=== PATIENT | male | born 1980 | race Caucasian/White ===

== ENCOUNTER 2019-11-13 09:54 | Inpatient (IN) ==
[2019-11-13] MEDS ORDERED: 0.9 % SODIUM CHLORIDE 1,000 ML IV ONE ×3 (10:06→12:00)
[2019-11-13] MEDS ORDERED: HYDROmorphone 1 MG/ML SYRINGE IV ONE (10:12)
[2019-11-13] MEDS ORDERED: ONDANSETRON 4 MG/2 ML VIAL IV ONE ×2 (10:12→13:23)
[2019-11-13 10:36] LABS: POC Blood Urea Nitrogen 37 mg/dl (6-20); POC CO2 21 mmol/L (22-30); POC Calcium, Ionized 1.09 mmol/L (1.16-1.32); POC Chloride 99 mmol/L (96-108); POC Creatinine 2.4 mg/dl (0.7-1.2); POC Glucose, Random 300 mg/dL (70-105); POC Sodium 133 mmol/L (133-145)
[2019-11-13 10:59] LABS: Basophils % (Auto) 0.4 % (0.0-2.0); Eosinophils # (Auto) 0.03 K/mcL (0.00-0.70); Eosinophils % (Auto) 0.1 % (0.0-7.0); Hematocrit 34.7 % (40.1-51.0); Hemoglobin 11.7 g/dL (13.7-17.5); Lymphocytes # (Auto) 0.54 K/mcL (1.50-4.80); Lymphocytes % (Auto) 1.9 % (15.5-49.0); Mean Cell Volume 88.7 fL (80.0-100.0); Mean Corpuscular HGB Conc 33.7 g/dL (31.0-36.0); Mean Platelet Volume 10.6 fL (7.4-10.4); Monocytes # (Auto) 1.01 K/mcL (0.10-0.90); Monocytes % (Auto) 3.6 % (1.0-12.0); Platelet Count 205 K/mcL (140-440); RBC 3.91 M/mcL (4.63-6.08); Red Cell Distribution Width 14.1 % (11.5-14.5); WBC 28.4 K/mcL (4.50-11.00)
[2019-11-13] MEDS ORDERED: PIPERACILLIN SODIUM/TAZOBACTAM 3.375 GM in DEXTROSE 5% IN WATER 50 ML IV ONE (11:00)
[2019-11-13] MEDS ORDERED: HYDROmorphone* 2 MG/ML VIAL ONE (11:03)
--- NOTE | 2019-11-13 11:31 | Emergency Department Note ---
General Adult HPI - General Chief complaint: Abdominal Pain Stated complaint: severe abdominal pain, hypotension Time Seen by Provider: 11/13/19 10:11 Source: patient, EMS Mode of arrival: EMS Limitations: no limitations - History of Present Illness HPI Narrative: 47-year-old male arrives via ambulance with multiple complaints. Has been up all night with severe abdominal pain with nausea, vomiting, and diarrhea. States he has severe IBS and this is not unusual for him. He was really dizzy this morning and had a few syncopal episodes. His called EMS. He arrives with a blood pressure of 60s over 30s. EMS could not get a line in route. His complaint is abdominal pain and back pain both which are hard to tell if they are new because they are chronic. He also is dizzy, pale, lightheaded and diaphoretic. He is a diabetic and has not been checking his sugars. States he does not remember the last time he checked his blood sugar. EMS also reports a systolic blood pressure of 50s and 60s. He does note that he just has not felt great for at least a few days. Cannot tell me how long. He has had fever and chills the last 24 hours he feels like although he has not taken his temperature. I do notice dressings to his feet bilaterally. States he has foot wounds and he just takes care of them himself. States he has had them for a long time. He does see Dr. House once in a while due to chronic foot problems and surgery. He does not see them for him for the foot wounds. He denies any drainage, redness, or warmth from the wounds and states they have been there for quite some time and that he deals with foot wounds constantly. After speaking with his she states he just has not been feeling great for the last 10 days but cannot really explain it. States he does have the chronic foot wounds and she is unsure how long they have been there. It sounds as if the patient is fairly noncompliant at times. Does not check his blood sugars and does not really take care of himself. His primary care provider is been trying to get him to take insulin and further manage his diabetes but he does not want to and they cannot convince him so far she states. She also states she has been trying to get him to see a GI provider but he will not do it. She states is not unusual for him to be up at night multiple times with nausea, vomiting, and especially diarrhea. States that is an ongoing thing for many years. It is unclear who diagnosed him with IBS. States the only provider he really sees is Yaa Keller for primary care in [place] and once in a great while he will see Dr. House for foot problems but not for the wounds. She reports she heard a thud this morning so she ran up to check on him and he had had a syncopal episode and was on the floor. She went to call 911 and he managed to get himself up into the bed. She states he had several near syncopal episodes this morning as well and was complaining of dizziness. - Related Data Home Medications Medication Instructions Recorded Confirmed empagliflozin 25 mg tablet 25 mg PO QAM 05/28/16 03/03/18 glipizide 10 mg tablet 10 mg PO BID 05/28/16 03/03/18 hydrochlorothiazide 25 mg tablet 25 mg PO QDAY 05/28/16 03/03/18 hydrocodone 10 mg-acetaminophen 2 tab PO QID PRN tab 05/28/16 03/03/18 325 mg tablet levothyroxine 175 mcg tablet 175 mcg PO QDAY 05/28/16 03/03/18 lisinopril 20 mg tablet 20 mg PO QDAY 05/28/16 03/03/18 metformin 1,000 mg tablet 1,000 mg PO BID 05/28/16 03/03/18 pregabalin 200 mg capsule 200 mg PO BID cap 05/28/16 03/03/18 oxyCODONE [Oxycontin] 5 mg PO DAILY PRN 07/01/17 03/03/18 Previous Rx's Medication Instructions Recorded oxycodone-acetaminophen 5 mg-325 1 tab PO Q6H #10 tab 02/17/18 mg tablet Allergies Allergy/AdvReac Type Severity Reaction Status Date / Time No Known Drug Allergies Allergy Verified 11/13/19 09:59 Review of Systems All systems ED: reviewed and negative except as stated. Past Medical History - Past Medical History [facility] Narrative: Medical History (Last Reviewed 01/31/18 @ 08:27 by Lyssa Llamas RN) Encounter for long-term current use of high risk medication (Acute) Carpal tunnel syndrome (Chronic) Inflammatory arthropathy (Suspected) Back pain (Chronic) Paresthesia and pain of both upper extremities (Acute) Abnormal immunological finding in serum (Chronic) Inflammatory arthritis (Suspected) Acquired hallux varus of left foot (Chronic) Hypertension (Chronic) Polyneuropathy (Chronic) Onychomycosis (Chronic) Angioedema (Chronic) Chronic back pain (Chronic) Hypothyroidism (Chronic) Type II diabetes mellitus (Chronic) Hammertoe (Chronic) Hypocalcemia (Chronic) Abnormal liver enzymes (Chronic) Hypoalphalipoproteinemia (Chronic) Hypertriglyceridemia (Chronic) Morbid obesity (Chronic) Past Surgical History (Last Reviewed 01/31/18 @ 08:27 by Lyssa Llamas RN) History of back surgery (Acute) History of surgery (Acute) No pertinent past surgical history (Acute) S/P carpal tunnel release (Acute) Surgical history ED: Reports: orthopedic, other (foot sx) - Social History smoking status: Former smoker Alcohol use: Reports: Rarely Drug use: Reports: none Physical Exam Limitations: no limitations General appearance: obese, sleepy, other (pale, diahporetic) Head: atraumatic, normocephalic, normal inspection Eye: Present: normal appearance. Absent: conjunctival injection ENT: Present: mucous membranes moist Chest: Present: symmetric chest wall rise Respiratory: Present: normal lung sounds bilaterally. Absent: respiratory distress, rales/crackles, accessory muscle use Cardiovascular: Present: regular rate, normal heart sounds Abdominal: Present: soft, normal bowel sounds. Absent: distention, tenderness (can't reproduce abd pain with palpation), guarding, rebound, mass Extremities: Present: other (multiples scabs intact and healing to LE from knees down. Feet with dry scaley skin bilat. Left foot with stage 2 pressure ucler and open wound. mild rendess to edges, no drainage, no induarion, no edema, culture pending). Absent: pedal edema Neurological: Present: alert, oriented X3 Psychiatric: Present: normal affect, normal mood Skin: Present: cool, diaphoretic Course Course Narrative: After arrival they were finally able to get 1 IV after multiple attempts however patient accidentally pulled out IV. Multiple nurses tried multiple times we are finally able to get 2 IVs. Fluid infusing rapidly. Patient's color is slightly improving but after 3 L of fluid still has pressure over of 70s over 30s and 60s over 40s. Levophed drip started. Zosyn started. At 1130 I did speak with Dr. Ernandez the hospitalist. He would also like us to CT the chest abdomen pelvis even though the patient is no longer having abdominal pain but did have abdominal pain all night long, has a nausea vomiting and diarrhea and also has a white count of greater than 28,000. At this time anesthesia was also called to place a central line at Dr. Victoria's request. Spoke with a few times and we did allow her in [facility] to see pt. @1300 Dr. Victoria agrees to accept pt Vital Signs Temperature 98.7 F 11/13/19 09:55 Pulse Rate 112 H 11/13/19 09:55 Respiratory Rate 18 11/13/19 09:55 Blood Pressure 76/48 11/13/19 09:55 Pulse Oximetry (%) 100 11/13/19 09:55 Temperature 98.7 F 11/13/19 09:55 Pulse Rate 94 H 11/13/19 13:50 Respiratory Rate 18 11/13/19 13:50 Blood Pressure 93/45 11/13/19 13:44 Pulse Oximetry (%) 91 11/13/19 13:50 Medical Decision Making - Lab Data Lab results reviewed: Yes I reviewed the patient's lab results. Result diagrams: 11/13/19 10:33 11/13/19 10:32 Lab Results 11/13/19 11/13/19 11/13/19 Range/Units 10:32 10:32 10:32 WBC (4.50-11.00) K/mcL RBC (4.63-6.08) M/mcL Hgb (13.7-17.5) g/dL Hct (40.1-51.0) % POC Hct (41.0-55.0) % MCV (80.0-100.0) fL MCH (26.0-34.0) pg MCHC (31.0-36.0) g/dL RDW (11.5-14.5) % Plt Count (140-440) K/mcL MPV (7.4-10.4) fL Gran % (38.0-78.0) % Lymph % (Auto) (15.5-49.0) % Newton % (Auto) (1.0-12.0) % Eos % (Auto) (0.0-7.0) % Baso % (Auto) (0.0-2.0) % Gran # (1.80-8.00) K/mcL Lymph # (Auto) (1.50-4.80) K/mcL Newton # (Auto) (0.10-0.90) K/mcL Eos # (Auto) (0.00-0.70) K/mcL Baso # (Auto) (0.00-0.30) K/mcL Differential Comment VBG Lactic Acid 3.9 H (0.5-2.0) mmol/L POC Sodium (133-145) mmol/L Sodium (133-145) mmol/L POC Potassium (3.3-5.1) mmol/L Potassium (3.3-5.1) mmol/L POC Chloride (96-108) mmol/L Chloride (96-108) mmol/L Carbon Dioxide (22-30) mmol/L POC Total CO2 (22-30) mmol/L Anion Gap (8-16) POC BUN (6-20) mg/dl BUN (6-20) mg/dl Creatinine (0.7-1.2) mg/dl POC Creatinine (0.7-1.2) mg/dl GFR Calculation Glucose (70-105) mg/dL POC Glucose (70-105) mg/dL Calcium (8.6-10.4) mg/dl POC WB Ioniz Calcium (1.16-1.32) mmol/L Total Bilirubin (0.0-1.0) mg/dL AST (0-37) U/l ALT (0-40) U/l Alkaline Phosphatase (39-117) U/L Troponin T < 0.01 (0-0.03) ng/ml C-Reactive Protein 7.2 H (0.0-0.8) mg/dl Total Protein (5.9-8.4) gm/dL Albumin (3.2-5.2) gm/dL Globulin (2.2-3.7) gm/dL Albumin/Globulin Ratio (1.0-2.3) Lipase (7-60) U/L Beta-Hydroxybutyrate 0.25 (< 0.27) mmol/L 11/13/19 11/13/19 11/13/19 Range/Units 10:32 10:33 10:33 WBC 28.4 H (4.50-11.00) K/mcL RBC 3.91 L (4.63-6.08) M/mcL Hgb 11.7 L (13.7-17.5) g/dL Hct 34.7 L (40.1-51.0) % POC Hct 35.0 L (41.0-55.0) % MCV 88.7 (80.0-100.0) fL MCH 29.9 (26.0-34.0) pg MCHC 33.7 (31.0-36.0) g/dL RDW 14.1 (11.5-14.5) % Plt Count 205 (140-440) K/mcL MPV 10.6 H (7.4-10.4) fL Gran % 94.0 H (38.0-78.0) % Lymph % (Auto) 1.9 L (15.5-49.0) % Newton % (Auto) 3.6 (1.0-12.0) % Eos % (Auto) 0.1 (0.0-7.0) % Baso % (Auto) 0.4 (0.0-2.0) % Gran # 26.75 H (1.80-8.00) K/mcL Lymph # (Auto) 0.54 L (1.50-4.80) K/mcL Newton # (Auto) 1.01 H (0.10-0.90) K/mcL Eos # (Auto) 0.03 (0.00-0.70) K/mcL Baso # (Auto) 0.10 (0.00-0.30) K/mcL Differential Comment VBG Lactic Acid (0.5-2.0) mmol/L POC Sodium 133 (133-145) mmol/L Sodium 134 (133-145) mmol/L POC Potassium 4.0 (3.3-5.1) mmol/L Potassium 4.1 (3.3-5.1) mmol/L POC Chloride 99 (96-108) mmol/L Chloride 95 L (96-108) mmol/L Carbon Dioxide 17 L (22-30) mmol/L POC Total CO2 21 L (22-30) mmol/L Anion Gap 22.0 H (8-16) POC BUN 37 H (6-20) mg/dl BUN 41 H (6-20) mg/dl Creatinine 2.1 H (0.7-1.2) mg/dl POC Creatinine 2.4 H (0.7-1.2) mg/dl GFR Calculation 38 Glucose 305 H (70-105) mg/dL POC Glucose 300 H (70-105) mg/dL Calcium 8.9 (8.6-10.4) mg/dl POC WB Ioniz Calcium 1.09 L (1.16-1.32) mmol/L Total Bilirubin 0.6 (0.0-1.0) mg/dL AST 20 (0-37) U/l ALT 38 (0-40) U/l Alkaline Phosphatase 36 L (39-117) U/L Troponin T (0-0.03) ng/ml C-Reactive Protein (0.0-0.8) mg/dl Total Protein 6.5 (5.9-8.4) gm/dL Albumin 3.2 (3.2-5.2) gm/dL Globulin 3.3 (2.2-3.7) gm/dL Albumin/Globulin Ratio 1.0 (1.0-2.3) Lipase 44 (7-60) U/L Beta-Hydroxybutyrate (< 0.27) mmol/L - Radiology Data Radiology results reviewed: Yes I reviewed the patient's radiology results. Disposition Pt seen by BUSHWALKING GUIDE/PA only: Yes Clinical Impression: Sepsis, Abdominal pain, Vomiting and diarrhea, Wound of foot, Uncontrolled diabetes mellitus Disposition: Xfer Acute Care Hospital Condition: Fair Referrals: Yaa Keller ARNP [Primary Care Provider] -
[2019-11-13] MEDS ORDERED: 0.9 % SODIUM CHLORIDE 250 ML IV SCH (11:45)
[2019-11-13] MEDS ORDERED: NOREPINEPHRINE BITARTRATE 8 MG in 0.9 % SODIUM CHLORIDE 242 ML IV SCH (11:45)
[2019-11-13] MEDS: HYDROmorphone* 2 MG/ML VIAL IV PRN ×2 (11:49→13:30)
[2019-11-13] MEDS ORDERED: VANCOMYCIN PER PHARMACY IV ONE (11:58)
[2019-11-13 12:11] LABS: Beta Hydroxybutyrate 0.25 mmol/L (< 0.27); C-Reactive Protein 7.2 mg/dl (0.0-0.8)
[2019-11-13] MEDS ORDERED: fentaNYL 100 MCG/2 ML VIAL IV ONE (12:11)
[2019-11-13] MEDS ORDERED: MIDAZOLAM 2 MG/2 ML VIAL IV ONE (12:11)
[2019-11-13] MEDS ORDERED: VANCOMYCIN 1,500 MG in 0.9 % SODIUM CHLORIDE 500 ML IV ONE (12:15)
--- NOTE | 2019-11-13 12:55 | Cat Scan Report ---
CLINICAL INFORMATION: Sepsis and abdominal pain COMPARISON: Abdomen and pelvic CT 01/16/2014 TECHNIQUE: Enteric contrast was utilized. 0.625 mm helical slices were obtained from the lung apices through the subtrochanteric regions of the femurs. Following reconstruction, 2.5 mm sagittal, coronal and axial reformatted images were processed and reviewed at multiple windows and levels. 7 mm MIP reconstructions were obtained through the lungs to optimize nodule detection.The exam was performed using radiation dose optimization techniques including, but not limited to, automated exposure control, adjustment of the mA and/or kV according to patient size and use of iterative reconstruction technique. FINDINGS: The lung windows show subsegmental atelectasis in both posterior lower lobes. There are no infiltrates or effusions. The mediastinal windows show the heart is normal in size without significant plaque in the coronary arteries. The noncontrast thoracic aorta and pulmonary arteries are normal in diameter. There are multiple mildly enlarged mediastinal lymph nodes ranging up to 17 mm in the right paratracheal region. The thyroid is unremarkable. All images show moderate hepatomegaly with vertical dimension of the right hepatic lobe 27 cm. This is unchanged 2014. No focal hepatic lesions. There are multiple small stones layering dependently within the gallbladder - new from the prior exam. Gallbladder is moderately distended, but there is no evidence of wall thickening or pericholecystic fluid. The hepatic and common bile ducts are normal caliber. Both kidneys, adrenal glands, pancreas and aorta are normal. The spleen is unremarkable. There are multiple mildly enlarged mesenteric and retroperitoneal lymph nodes in the upper abdomen which are were actually unchanged from the 2014 exam and therefore should be benign the stomach, and small bowel are normal. There are multiple sigmoid diverticuli the remaining large bowel is normal.. Images of the pelvis show urinary bladder prostate and seminal vesicles are normal. Bone windows show no osseous abnormality. IMPRESSION: 1. Multiple mildly enlarged mediastinal lymph nodes. They're likely benign reactive lymph nodes related to subclinical infection. Lymphoma or metastatic disease would be highly unlikely unless there is clinical support. Consider chest CT follow-up in 8-12 weeks. 2. Mildly enlarged mesenteric and retroperitoneal lymph nodes in the upper abdomen are stable from 2014. A should be benign. 3. Moderate hepatomegaly - stable. 4. Cholelithiasis, but no CT evidence of cholecystitis. Interpreted and Authenticated by: Js Jasso 11/13/19
[2019-11-13] MEDS ORDERED: 0.9 % SODIUM CHLORIDE 10 ML SYRINGE IV PRN (12:57)
--- NOTE | 2019-11-13 13:31 | XRay Report ---
CLINICAL INFORMATION: Central Line Placement COMPARISON: 11/05/2019 FINDINGS: Right IJ central line tip overlies the SVC - azygos junction. The heart is normal in size. Slight mediastinal widening represents known mediastinal adenopathy on CT. There is minor bibasilar atelectasis. No effusion. IMPRESSION: Right IJ line overlying the SVC azygos junction.. Mild mediastinal widening reflecting mediastinal adenopathy. Interpreted and Authenticated by: Js Jasso 11/13/19
--- NOTE | 2019-11-13 13:34 | Internal Med History&Physical ---
Medical - H&P: HPI Patient information: Note initiated : 11/13/19 at 1:28 pm Service Date, if different from initiated Date: [] Patient: Ahmet Zelaya 39 y/o M admitted on for severe abdominal pain, hypotension. Chief Complaint: [] Chief complaint: Weakness abd pain, dirrhea History of present illness: Mr. Zelaya is a 39 year old M with history of IBS/diabetes and morbid obesity who was in his baseline state of health until roughly 7 days prior to presentation started experiencing URI symptoms with stuffy nose and sinus drainage. His 4-year-old son had a recent episode of sore throat his only sick contact he could remember. He was started on Z-Sandeep along with Sudafed however over the next 4 days he started experiencing increasing diarrhea weakness along with yellow-green postnasal drip/sputum. He however denied shaking chills but endorses to low-grade fever. He normally experiences intermittent diarrhea 6-8 episodes a day from his prior IBS and is scheduled to see GI however the frequency of diarrhea along with abdominal pain worsened over the last 48 hours with increasing frequency of stooling. Symptoms are associated loss of appetite/severe weakness. This morning after he got up he became extremely dizzy and was a barely able to move around function. With i ncreasing concerns patient was brought into the ER along with his . Initial work-up was consistent with septic shock with blood pressure mid 40, patient was promptly started on crystalloids, blood cultures were drawn and vasopressors initiated. Patient was started on vancomycin and Zosyn. CT abdomen chest pelvis no evidence of acute process except for cholelithiasis. UA pending. Labs remarkable for white count over 28,000 with bandemia/elevated lactate/acute renal failure. Central line was secured in the ER Hospitalist service was consulted for admission in light of septic shock. On evaluation patient is very anxious and lethargic but was able to endorse history as above. He denies IV drug use. 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 Review of systems A 10 point review system was performed and is negative except for ones cussed above Medical - H&P: PMH Medical history: Encounter for long-term current use of high risk medication (Acute) Carpal tunnel syndrome (Chronic) Inflammatory arthropathy (Suspected) Back pain (Chronic) Paresthesia and pain of both upper extremities (Acute) Abnormal immunological finding in serum (Chronic) Inflammatory arthritis (Suspected) Acquired hallux varus of left foot (Chronic) Hypertension (Chronic) Polyneuropathy (Chronic) Onychomycosis (Chronic) Angioedema (Chronic) Chronic back pain (Chronic) Hypothyroidism (Chronic) Type II diabetes mellitus (Chronic) Hammertoe (Chronic) chronic callus and diabetic ulcer under the second left metatarsal head due to hammertoe and bunion deformity Hypocalcemia (Chronic) Abnormal liver enzymes (Chronic) Hypoalphalipoproteinemia (Chronic) Hypertriglyceridemia (Chronic) Morbid obesity (Chronic) Surgical History History of back surgery (Acute) History of surgery (Acute) right foot No pertinent past surgical history (Acute) S/P carpal tunnel release (Acute) left hand Family History Other Cancer Diabetes Hypertension No pertinent family history Social History smoking status: Former smoker alcohol intake frequency: does not drink substance use type: 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 - H&P: Meds Home Medications Medication Instructions Recorded Confirmed Type empagliflozin 25 mg tablet 25 mg PO QAM 05/28/16 03/03/18 History glipizide 10 mg tablet 10 mg PO BID 05/28/16 03/03/18 History hydrochlorothiazide 25 mg tablet 25 mg PO QDAY 05/28/16 03/03/18 History hydrocodone 10 mg-acetaminophen 2 tab PO QID PRN tab 05/28/16 03/03/18 History 325 mg tablet levothyroxine 175 mcg tablet 175 mcg PO QDAY 05/28/16 03/03/18 History lisinopril 20 mg tablet 20 mg PO QDAY 05/28/16 03/03/18 History metformin 1,000 mg tablet 1,000 mg PO BID 05/28/16 03/03/18 History pregabalin 200 mg capsule 200 mg PO BID cap 05/28/16 03/03/18 History oxyCODONE [Oxycontin] 5 mg PO DAILY PRN 07/01/17 03/03/18 History oxycodone-acetaminophen 5 mg-325 1 tab PO Q6H #10 tab 02/17/18 03/03/18 Rx mg tablet Allergies Allergy/AdvReac Type Severity Reaction Status Date / Time No Known Drug Allergies Allergy Verified 11/13/19 09:59 Medical - H&P: Exam - Constitutional Vitals: Temp Pulse Resp BP Pulse Ox 98.7 F 99 H 12 64/55 94 11/13/19 09:55 11/13/19 12:23 11/13/19 12:24 11/13/19 12:24 11/13/19 12:23 General appearance: morbidly obese Exam: Lethargic but able to respond to commands Head normocephalic Oral cavity dry No ear nose discharge Neck no lymphadenopathy S1-S2 tachycardia Diminished breath sounds bases, nonlabored breathing Abdomen pendulous, increased bowel sounds Lower extremity no cyanosis clubbing Areas of excoriation with minimal surrounding erythema Skin no suspicious lesion Psych anxious lethargic but cooperative Neuro nonfocal Medical - H&P: Reslt - Labs CBC & Chem 7: 11/13/19 10:33 11/13/19 10:32 Labs: Short CBC 11/13/19 Range/Units 10:33 WBC 28.4 H (4.50-11.00) K/mcL Hgb 11.7 L (13.7-17.5) g/dL Hct 34.7 L (40.1-51.0) % Plt Count 205 (140-440) K/mcL Cardiac Enzymes 11/13/19 Range/Units 10:32 Troponin T < 0.01 (0-0.03) ng/ml Medical - H&P: A/P (1) Septic shock Current visit: Yes Status: Acute * Septic shock of unclear etiology-elevated lactate/white count 28,000 with bandemia systolics mid 40. On aggressive crystalloid/vasopressors. [place] 2 score 20 indicating high mortality. Admit to ICU for vasopressors/sepsis management per guidelines. Multiple endorgan dysfunction noted. Continue aggressive source evaluation. Check C. difficile * Acute renal failure secondary to sepsis endorgan dysfunction. Baseline creatinine 1 current creatinine 2.5 * Acute change in mental status secondary to sepsis endorgan dysfunction. Clinically improving following crystalloids and improvement in blood pressure * DM type II-prandial insulin/CCD * Morbid obesity with BMI over 39-continue directed therapy/dietitian consult * History of hypertension hold antihypertensives until septic shock resolves * Degenerative joint disease-continue home dose opioids * Neuropathy on gabapentin * Hypothyroidism on thyroxine at home * Full code * Prophylax Heparin Plan * ICU admission * Septic shock management per guidelines with vasopressors/SVO 2/urine output monitoring/trend venous lactate * Monitor renal function * C. difficile * Ultrasound gallbladder * PT OT nutrition support Critical care time spent in excess of 35 minutes in excess of time spent on history and physical
[2019-11-13 13:46] LABS: ALT/SGPT 38 U/l (0-40); AST/SGOT 20 U/l (0-37); Albumin 3.2 gm/dL (3.2-5.2); Alkaline Phosphatase 36 U/L (39-117); Bilirubin,Total 0.6 mg/dL (0.0-1.0); Blood Urea Nitrogen 41 mg/dl (6-20); Calcium 8.9 mg/dl (8.6-10.4); Carbon Dioxide 17 mmol/L (22-30); Chloride 95 mmol/L (96-108); Globulin 3.3 gm/dL (2.2-3.7); Glomerular Filtration Rate 38; Glucose 305 mg/dL (70-105)
[2019-11-13] MEDS: NOREPINEPHRINE BITARTRATE 8 MG in 0.9 % SODIUM CHLORIDE 242 ML IV SCH ×2 (14:45→16:01)
[2019-11-13] MEDS ORDERED: MAGNESIUM SULFATE 2 GM/50 ML BAG IV PRN (14:56)
[2019-11-13] MEDS ORDERED: POTASSIUM CHLORIDE 20 MEQ PACKET PO PRN (14:56)
[2019-11-13] MEDS ORDERED: ACETAMINOPHEN 325 MG TABLET PO PRN (14:56)
[2019-11-13] MEDS ORDERED: DEXTROSE 31 GM ORAL.SUSP PO PRN (14:56)
[2019-11-13] MEDS ORDERED: DEXTROSE 50% 50 ML VIAL IV PRN (14:56)
[2019-11-13] MEDS ORDERED: ONDANSETRON 4 MG ODT TABLET SL PRN (14:56)
[2019-11-13] MEDS ORDERED: VANCOMYCIN PER PHARMACY IV SCH (14:56)
[2019-11-13] MEDS ORDERED: BISACODYL 10 MG SUPP.RECT PR PRN (14:56)
[2019-11-13] MEDS ORDERED: POTASSIUM CHLORIDE 40 MEQ in DEXTROSE 5% IN WATER 500 ML IV PRN (14:56)
[2019-11-13] MEDS: 0.9 % SODIUM CHLORIDE 1,000 ML IV SCH (15:43)
[2019-11-13] MEDS: 0.9 % SODIUM CHLORIDE 10 ML SYRINGE IV SCH ×2 (16:01→21:36)
--- NOTE | 2019-11-13 16:31 | Ultrasound Report ---
CLINICAL INFORMATION: Sepsis, R/o cholecystitis COMPARISON: Abdomen and pelvic CT 11/05/2019 FINDINGS: The liver is moderately enlarged with inhomogeneous echotexture. No focal hepatic lesions. There are multiple tiny stones layering dependently within the gallbladder which is moderately distended. Gallbladder wall is normal thickness and there is no focal tenderness's report cholecystitis. Common bile duct was not visualized. Pancreas unremarkable. No free fluid IMPRESSION: Cholelithiasis but no evidence of cholecystitis. Moderate hepatomegaly Interpreted and Authenticated by: Js Jasso 11/13/19
[2019-11-13] MEDS: INSULIN LISPRO 1 UNIT/0.01 ML UNIT SQ SCH ×2 (17:23→21:36)
[2019-11-13] MEDS: PIPERACILLIN SODIUM/TAZOBACTAM 3.375 GM in DEXTROSE 5% IN WATER 50 ML IV SCH (17:24)
[2019-11-13 17:29] LABS: Appearance,Urine CLEAR; Bacteria,Urine 0 /hpf (0); Bilirubin,Urine NEG (NEG); Color,Urine YELLOW; Culture Indicated,Urine NO; Glucose,Urine (UA) >=500 mg/dL (NEG); Ketones,Urine NEG (NEG); Leukocyte Esterase,Urine NEG /uL (NEG); Mucus,Urine FEW /hpf (0); Nitrate,Urine NEG (NEG); Protein,Urine 30 mg/dL (NEG); Specific Gravity,Urine 1.016 (1.000-1.035); Urine Blood NEG mg/dL (<0.03); Urine RBC < 1 /hpf (0-1); Urine Squamous Epithelial Cell < 1 /hpf (0-4); Urine WBC < 1 /hpf (0-4); Urobilinogen,Urine NEG (NEG)
[2019-11-13] MEDS: ACETAMINOPHEN 650 MG/65 ML BOTTLE IV PRN (19:50)
[2019-11-13] MEDS ORDERED: MELATONIN 3 MG TABLET PO PRN (21:00)
[2019-11-13] MEDS ORDERED: 0.9 % SODIUM CHLORIDE 10 ML SYRINGE IV SCH (21:00)
[2019-11-13] MEDS: CYANOCOBALAMIN (VITAMIN B-12) 500 MCG TABLET PO SCH (21:16)
[2019-11-13] MEDS: DOCUSATE SODIUM 100 MG CAPSULE PO SCH (21:16)
[2019-11-13] MEDS: HEPARIN 5,000 UNIT/ML VIAL SQ SCH (21:35)
[2019-11-13] MEDS: VANCOMYCIN 1,500 MG in 0.9 % SODIUM CHLORIDE 500 ML IV SCH (23:16)
[2019-11-14] MEDS: PIPERACILLIN SODIUM/TAZOBACTAM 3.375 GM in DEXTROSE 5% IN WATER 50 ML IV SCH ×5 (00:41→23:43)
[2019-11-14] MEDS: 0.9 % SODIUM CHLORIDE 1,000 ML IV SCH ×4 (00:41→23:49)
[2019-11-14] MEDS: ACETAMINOPHEN 650 MG/65 ML BOTTLE IV PRN ×2 (02:04→09:32)
[2019-11-14] MEDS: 0.9 % SODIUM CHLORIDE 10 ML SYRINGE IV SCH ×3 (06:07→20:38)
[2019-11-14] MEDS: ONDANSETRON 4 MG/2 ML VIAL IV PRN ×5 (06:08→23:43)
[2019-11-14 06:31] LABS: Hematocrit 34.3 % (40.1-51.0); Hemoglobin 11.1 g/dL (13.7-17.5); Mean Cell Volume 88.6 fL (80.0-100.0); Mean Corpuscular HGB Conc 32.4 g/dL (31.0-36.0); Mean Platelet Volume 10.4 fL (7.4-10.4); Platelet Count 188 K/mcL (140-440); RBC 3.87 M/mcL (4.63-6.08); Red Cell Distribution Width 14.4 % (11.5-14.5)
[2019-11-14 06:46] LABS: ALT/SGPT 39 U/l (0-40); AST/SGOT 23 U/l (0-37); Albumin 3.4 gm/dL (3.2-5.2); Albumin/Globulin Ratio 0.9 (1.0-2.3); Alkaline Phosphatase 56 U/L (39-117); Bilirubin,Direct 0.2 mg/dL (0.0-0.3); Bilirubin,Total 0.8 mg/dL (0.0-1.0); Blood Urea Nitrogen 16 mg/dl (6-20); Calcium 8.9 mg/dl (8.6-10.4); Carbon Dioxide 20 mmol/L (22-30); Chloride 101 mmol/L (96-108); Globulin 3.6 gm/dL (2.2-3.7); Glomerular Filtration Rate 84; Glucose 137 mg/dL (70-105); Lactate Dehydrogenase 365 U/L (94-250); Uric Acid 4.4 mg/dL (2.5-8.0)
[2019-11-14 06:49] LABS: Triglycerides 481 mg/dl (<150)
[2019-11-14 07:35] LABS: Band Neutrophils % 12 % (0-10); Lymphocytes % 4 % (15-49); Monocytes % (Manual) 4 % (1-12); Platelet Estimate NORMAL (NORMAL); RBC Morphology NORMAL (NORMAL); Segmented Neutrophils % 80 % (38-78)
[2019-11-14] MEDS: DOCUSATE SODIUM 100 MG CAPSULE PO SCH ×2 (07:55→20:37)
[2019-11-14] MEDS: INSULIN LISPRO 1 UNIT/0.01 ML UNIT SQ SCH ×4 (08:08→20:50)
[2019-11-14] MEDS: THIAMINE 100 MG TABLET PO SCH (09:33)
[2019-11-14] MEDS: CYANOCOBALAMIN (VITAMIN B-12) 500 MCG TABLET PO SCH ×3 (09:33→21:56)
[2019-11-14] MEDS: MULTIVIT,THER IRON,CA,FA & MIN 1 TABLET PO SCH (09:33)
[2019-11-14] MEDS: HEPARIN 5,000 UNIT/ML VIAL SQ SCH ×2 (09:34→20:37)
[2019-11-14] MEDS: FOLIC ACID 1 MG TABLET PO SCH (09:34)
[2019-11-14] MEDS: VANCOMYCIN 1,500 MG in 0.9 % SODIUM CHLORIDE 500 ML IV SCH ×4 (10:22→21:53)
--- NOTE | 2019-11-14 10:30 | Internal Med Progress Note ---
Medical - PN: Subj Patient information: Note initiated : 11/14/19 at 10:27 am Service Date, if different from initiated Date: [] Patient: Ahmet Zelaya 39 y/o M admitted on 11/13/19 for severe abdominal pain, hypotension. Chief Complaint: [] Interval history: Mr. Zelaya is a 39 year old M with history of IBS/diabetes and morbid obesity who was in his baseline state of health until roughly 7 days prior to pr esentation started experiencing URI symptoms with stuffy nose and sinus drainage. His 4-year-old son had a recent episode of sore throat his only sick contact he could remember. He was started on Z-Sandeep along with Sudafed however over the next 4 days he started experiencing increasing diarrhea weakness along with yellow-green postnasal drip/sputum. He however denied shaking chills but endorses to low-grade fever. He normally experiences intermittent diarrhea 6-8 episodes a day from his prior IBS and is scheduled to see GI however the frequency of diarrhea along with abdominal pain worsened over the last 48 hours with increasing frequency of stooling. Symptoms are associated loss of appetite/severe weakness. This morning after he got up he became extremely dizzy and was a barely able to move around function. With increasing concerns patient was brought into the ER along with his . Initial work-up was consistent with septic shock with blood pressure mid 40, patient was promptly started on crystalloids, blood cultures were drawn and vasopressors initiated. Patient was started on vancomycin and Zosyn. CT abdomen chest pelvis no evidence of acute process except for cholelithiasis. UA pending. Labs remarkable for white count over 28,000 with bandemia/elevated lactate/acute renal failure. Central line was secured in the ER Hospitalist service was consulted for admission in light of septic shock. On evaluation patient is very anxious and lethargic but was able to endorse history as above. He denies IV drug use. 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 No overnight events. No concerns per staff. No fever chills nausea vomiting. Improved labs and hemodynamics. Off pressors. Improving urine output. Complains of headache. Restart home medications. White count down from 28.4-19,000. 12% bands. No obvious source identified as yet. Cultures negative so far. Creatinine down to 1.1 from 2.4. LFT stable. Blood cultures gram-positive cocci. - Constitutional Vitals: Vital Signs Temp Pulse Resp BP Pulse Ox 98.6 F 112 H 21 118/64 98 11/14/19 09:01 11/14/19 08:31 11/14/19 09:04 11/14/19 09:01 11/14/19 08:31 Period Temp Pulse Resp BP Sys/Bradford Pulse Ox Last 24 Hr 97.8 F-103.3 F 87-120 12-33 44-157/21-95 88-100 Intake and Output 11/13/19 11/14/19 11/14/19 21:59 05:59 13:59 Intake Total 1080 2977 627 Output Total 1950 3925 1500 Balance -870 -948 -873 Weight 339 lb 6.4 oz Intake & Output: Intake & Output 11/13/19 11/14/19 11/14/19 21:59 05:59 13:59 Intake Total 1080 2977 627 Output Total 1950 3925 1500 Balance -870 -948 -873 Weight 339 lb 6.4 oz Intake: IV 735 1477 147 Sodium Chloride 0.9% 1,000 ml @ 897 100 mls/hr IV .Q10H [facility] Rx#: [id number] Sodium Chloride 0.9% 250 ml @ 21 20 mls/hr IV .[id number] [facility] Rx#: [id number] Levophed 8 mg In Sodium 99 30 32 Chloride 0.9% 242 ml @ 10 MCG/ MIN 18.75 mls/hr IV Q14H [facility] Rx #:[id number] Zosyn 3.375 gm In Dextrose 5% 50 50 50 in Water 50 ml @ 100 mls/hr IV Q6H [facility] Rx#:[id number] Vancomycin 1,500 mg In Sodium 500 500 Chloride 0.9% 500 ml @ 333.3 mls/hr IV Q12H [facility] Rx#: [id number] Oral 345 1500 480 Output: Urine Catheter Amount 2750 1000 Void Amount 1950 975 Stool 200 500 Other: Meal Dinner Percent of Meal Consumed 100% Feeding Ability Independent Urine Appearance Clear Clear Uretheral (Ramos) Clear Urine Color Pale Bright Yellow Bright Yellow Uretheral (Ramos) Pale Urine Odor Normal Stool Size Small Stool Color Brown Yellow Stool Consistency Liquid Loose # Bowel Movements 1 General appearance: morbidly obese, no acute distress Exam: Nonlabored breathing No anxiety Nondistended abdomen Morbidly obese Ramos draining clear urine Medical - PN: Obj Da - Labs CBC & Chem 7: 11/14/19 05:00 11/14/19 05:00 Labs: Abnormal Lab Results 11/14/19 11/14/19 11/13/19 05:00 05:00 16:35 WBC 19.0 H RBC 3.87 L Hgb 11.1 L Hct 34.3 L POC Hct MPV Gran % Lymph % (Auto) Gran # Lymph # (Auto) [place] # (Auto) Seg Neutrophils % 80 H Band Neutrophils % 12 H Lymphocytes % 4 L VBG Lactic Acid Chloride Carbon Dioxide 20 L POC Total CO2 Anion Gap 18.0 H POC BUN BUN Creatinine POC Creatinine Glucose 137 H POC Glucose POC WB Ioniz Calcium Phosphorus 2.0 L GGT 173 H Alkaline Phosphatase Lactate Dehydrogenase 365 H C-Reactive Protein Albumin/Globulin Ratio 0.9 L Triglycerides 481 H Urine Protein 30 A Urine Glucose (UA) >=500 A 11/13/19 11/13/19 11/13/19 10:33 10:33 10:32 WBC 28.4 H RBC 3.91 L Hgb 11.7 L Hct 34.7 L POC Hct 35.0 L MPV 10.6 H Gran % 94.0 H Lymph % (Auto) 1.9 L Gran # 26.75 H Lymph # (Auto) 0.54 L [place] # (Auto) 1.01 H Seg Neutrophils % Band Neutrophils % Lymphocytes % VBG Lactic Acid Chloride 95 L Carbon Dioxide 17 L POC Total CO2 21 L Anion Gap 22.0 H POC BUN 37 H BUN 41 H Creatinine 2.1 H POC Creatinine 2.4 H Glucose 305 H POC Glucose 300 H POC WB Ioniz Calcium 1.09 L Phosphorus GGT Alkaline Phosphatase 36 L Lactate Dehydrogenase C-Reactive Protein Albumin/Globulin Ratio Triglycerides Urine Protein Urine Glucose (UA) 11/13/19 11/13/19 10:32 10:32 WBC RBC Hgb Hct POC Hct MPV Gran % Lymph % (Auto) Gran # Lymph # (Auto) [place] # (Auto) Seg Neutrophils % Band Neutrophils % Lymphocytes % VBG Lactic Acid 3.9 H Chloride Carbon Dioxide POC Total CO2 Anion Gap POC BUN BUN Creatinine POC Creatinine Glucose POC Glucose POC WB Ioniz Calcium Phosphorus GGT Alkaline Phosphatase Lactate Dehydrogenase C-Reactive Protein 7.2 H Albumin/Globulin Ratio Triglycerides Urine Protein Urine Glucose (UA) Meds: Medications Acetaminophen (Tylenol) 650 mg PO Q4-6HP PRN; Protocol PRN Reason: Per Pain Protocol/Fever > 101 Bisacodyl (Dulcolax) 10 mg OR Q2-3DAYS PRN PRN Reason: Constipation Cyanocobalamin (Vitamin B-12) 1,000 mcg PO BID [facility] Stop: 11/18/19 09:01 Last Admin: 11/14/19 09:33 Dose: 1,000 mcg Documented by: Dextrose (Dextrose 50%) 0 ml IV UD PRN PRN Reason: Hypoglycemia Diagnostic Test (Pha) (Accu-Chek) 1 each FS ACHS [facility] Last Admin: 11/14/19 08:07 Dose: 1 each Documented by: Docusate Sodium (Colace) 100 mg PO BID [facility] Last Admin: 11/14/19 07:55 Dose: Not Given Documented by: Folic Acid (Folic Acid) 1 mg PO DAILY [facility] Last Admin: 11/14/19 09:34 Dose: 1 mg Documented by: Glucose (Insta-Glucose) 15 gm PO PRN PRN PRN Reason: Hypoglycemia Heparin Sodium (Porcine) (Heparin) 5,000 unit SQ Q12 [facility] Last Admin: 11/14/19 09:34 Dose: 5,000 unit Documented by: Sodium Chloride (Sodium Chloride 0.9%) 1,000 mls @ 100 mls/hr IV .Q10H [facility] Last Admin: 11/14/19 00:41 Dose: 100 mls/hr Documented by: Acetaminophen (Ofirmev) 650 mg in 65 mls @ 130 mls/hr IV Q6HP PRN; Protocol PRN Reason: Per Pain Protocol/Fever > 101 Last Admin: 11/14/19 09:32 Dose: 130 mls/hr Documented by: Potassium Chloride 40 meq/ (Dextrose) 520 mls @ 130 mls/hr IV UD PRN PRN Reason: K+ = or < 3.5 Magnesium Sulfate (Magnesium Sulfate) 2 gm in 50 mls @ 50 mls/hr IV UD PRN PRN Reason: MG = or < 1.7 Piperacillin Sod/Tazobactam (Sod 3.375 gm/ Dextrose) 50 mls @ 100 mls/hr IV Q6H [facility]; Protocol Last Infusion: 11/14/19 06:40 Dose: Infused Documented by: Norepinephrine Bitartrate 8 mg (/ Sodium Chloride) 250 mls @ 18.75 mls/hr IV Q14H [facility]; Protocol Last Titration: 11/14/19 07:11 Dose: 0 mcg/min, 0 mls/hr Documented by: Vancomycin HCl 1,500 mg/ (Sodium Chloride) 500 mls @ 333.3 mls/hr IV Q8H [facility] Last Admin: 11/14/19 10:22 Dose: 333.3 mls/hr Documented by: Insulin Human Lispro (Humalog) 0 unit SQ ACHS [facility]; Protocol Last Admin: 11/14/19 08:08 Dose: Not Given Documented by: Iron Carb/Multivit/Screen Printing Stencil Preparer/Folic Acid (Multivitamin W/Minerals) 1 tab PO DAILY [facility] Last Admin: 11/14/19 09:33 Dose: 1 tab Documented by: Melatonin (Melatonin 3mg Tablet) 3 mg PO HSP PRN PRN Reason: Insomnia Ondansetron HCl (Zofran Odt) 4 mg SL Q4-6HP PRN; Protocol PRN Reason: Nausea And Vomiting Last Admin: 11/14/19 07:21 Dose: 4 mg Documented by: Ondansetron HCl (Zofran) 4 mg IV Q4-6HP PRN; Protocol PRN Reason: Nausea And Vomiting Last Admin: 11/14/19 06:08 Dose: 4 mg Documented by: Potassium Chloride (Klor-Con) 40 meq PO DAILYP PRN PRN Reason: K+ < 3.5 Sodium Chloride (Saline Flush) 10 ml IV Q8 [facility] Last Admin: 11/14/19 06:07 Dose: 10 ml Documented by: Thiamine HCl (Vitamin B1) 100 mg PO DAILY [facility] Last Admin: 11/14/19 09:33 Dose: 100 mg Documented by: Vancomycin HCl (Vancomycin Per Pharmacy) 1 order IV UD [facility]; Protocol Medical - PN: A/P - Time Spent With Patient Total time spent is greater than 50% in coordination of care (as documented) at patient's floor/unit and/or counseling patient: Greater than 35 minutes (Critical care time) (1) Septic shock Status: Acute Assessment and plan: * Septic shock of secondary gram-positive cocci-rapid improvement noted on aggressive antibiotic coverage/vasopressors. Improved endorgan dysfunction. Negative abdominal imaging * Gram-positive bacteremia-unclear source. Check echocardiogram. Repeat surveillance cultures. * Acute renal failure secondary to sepsis endorgan dysfunction. Creatinine down from 2.5-1.1. Rapidly improving with resolution of sepsis * Acute change in mental status secondary to sepsis endorgan dysfunction. Clinically improved * DM type II-continue CCD/metformin/home medications * Morbid obesity with BMI over 39-continue directed therapies/dietitian consult * History of hypertension -held antihypertensives until septic shock resolves * Degenerative joint disease-continue home dose opioids * Neuropathy on gabapentin * Hypothyroidism on thyroxine at home * Full code * Prophylax Heparin Plan * Surveillance cultures/echocardiogram/source evaluation for bacteremia * Septic shock management per guidelines , wean pressors * Avoid nephrotoxinsn * PT OT nutrition support Current Visit: Yes
[2019-11-14] MEDS: HYDROcodone/APAP 10/325MG TABLET PO PRN ×2 (10:56→14:18)
[2019-11-14] MEDS: oxyCODONE/APAP 5/325MG TABLET PO SCH ×3 (12:08→23:43)
[2019-11-14] MEDS: NOREPINEPHRINE BITARTRATE 8 MG in 0.9 % SODIUM CHLORIDE 242 ML IV SCH ×2 (12:41→20:36)
[2019-11-14] MEDS: metFORMIN 500 MG TABLET PO SCH (18:10)
[2019-11-14] MEDS ORDERED: PREGABALIN 100 MG CAPSULE PO SCH (21:00)
[2019-11-15] MEDS: ONDANSETRON 4 MG/2 ML VIAL IV PRN ×2 (05:04→21:32)
[2019-11-15] MEDS: PIPERACILLIN SODIUM/TAZOBACTAM 3.375 GM in DEXTROSE 5% IN WATER 50 ML IV SCH (05:07)
[2019-11-15] MEDS: oxyCODONE/APAP 5/325MG TABLET PO SCH ×3 (05:14→18:04)
[2019-11-15] MEDS: 0.9 % SODIUM CHLORIDE 10 ML SYRINGE IV SCH ×4 (05:15→22:00)
[2019-11-15] MEDS: VANCOMYCIN 1,500 MG in 0.9 % SODIUM CHLORIDE 500 ML IV SCH (05:15)
[2019-11-15 06:12] LABS: Hematocrit 31.6 % (40.1-51.0); Hemoglobin 10.2 g/dL (13.7-17.5); Mean Cell Volume 89.8 fL (80.0-100.0); Mean Corpuscular HGB Conc 32.3 g/dL (31.0-36.0); Mean Platelet Volume 10.5 fL (7.4-10.4); Platelet Count 168 K/mcL (140-440); RBC 3.52 M/mcL (4.63-6.08); Red Cell Distribution Width 14.4 % (11.5-14.5); WBC 16.3 K/mcL (4.50-11.00)
[2019-11-15 06:31] LABS: ALT/SGPT 34 U/l (0-40); AST/SGOT 16 U/l (0-37); Albumin 3.2 gm/dL (3.2-5.2); Albumin/Globulin Ratio 0.8 (1.0-2.3); Alkaline Phosphatase 103 U/L (39-117); Bilirubin,Direct < 0.2 mg/dL (0.0-0.3); Bilirubin,Total 0.6 mg/dL (0.0-1.0); Blood Urea Nitrogen 10 mg/dl (6-20); Calcium 8.9 mg/dl (8.6-10.4); Carbon Dioxide 17 mmol/L (22-30); Chloride 99 mmol/L (96-108); Glomerular Filtration Rate 112; Glucose 179 mg/dL (70-105); Lactate Dehydrogenase 206 U/L (94-250); Phosphorous 1.3 mg/dL (2.7-4.5); Triglycerides 522 mg/dl (<150); Uric Acid 3.7 mg/dL (2.5-8.0)
[2019-11-15] MEDS ORDERED: CALCIUM CARBONATE 500 MG TAB.CHEW CHEWED PRN (07:00)
[2019-11-15] MEDS ORDERED: MAG HYDROX/AL HYDROX/SIMETH 30 ML ORAL.SUSP PO PRN ×2 (07:00→10:08)
[2019-11-15] MEDS: INSULIN LISPRO 1 UNIT/0.01 ML UNIT SQ SCH ×4 (07:28→21:15)
[2019-11-15] MEDS ORDERED: LEVOTHYROXINE 75 MCG TABLET PO SCH (07:30)
[2019-11-15] MEDS ORDERED: LEVOTHYROXINE 100 MCG TABLET PO SCH (07:30)
[2019-11-15 08:05] LABS: Band Neutrophils % 1 % (0-10); Eosinophils % (Manual) 2 % (0-7); Lymphocytes % 3 % (15-49); Monocytes % (Manual) 2 % (1-12); Platelet Estimate NORMAL (NORMAL); RBC Morphology NORMAL (NORMAL); Segmented Neutrophils % 92 % (38-78)
[2019-11-15] MEDS: HYDROcodone/APAP 10/325MG TABLET PO PRN ×3 (08:24→21:41)
[2019-11-15] MEDS: metFORMIN 500 MG TABLET PO SCH ×2 (08:24→17:25)
[2019-11-15] MEDS ORDERED: NOREPINEPHRINE BITARTRATE 8 MG in 0.9 % SODIUM CHLORIDE 242 ML IV PRN (09:00)
[2019-11-15] MEDS ORDERED: 0.9 % SODIUM CHLORIDE 10 ML SYRINGE IV SCH ×2 (09:00→21:00)
[2019-11-15] MEDS ORDERED: PREGABALIN 100 MG CAPSULE PO SCH (09:00)
[2019-11-15] MEDS: DOCUSATE SODIUM 100 MG CAPSULE PO SCH ×2 (09:01→21:39)
--- NOTE | 2019-11-15 09:13 | Internal Med Progress Note ---
Medical - PN: Subj Patient information: Note initiated : 11/15/19 at 9:11 am Service Date, if different from initiated Date: [] Patient: Ahmet Zelaya 39 y/o M admitted on 11/13/19 for severe abdominal pain, hypotension. Chief Complaint: [] Interval history: Mr. Zelaya is a 39 year old M with history of IBS/diabetes and morbid obesity who was in his baseline state of health until roughly 7 days prior to pre sentation started experiencing URI symptoms with stuffy nose and sinus drainage. His 4-year-old son had a recent episode of sore throat his only sick contact he could remember. He was started on Z-Sandeep along with Sudafed however over the next 4 days he started experiencing increasing diarrhea weakness along with yellow-green postnasal drip/sputum. He however denied shaking chills but endorses to low-grade fever. He normally experiences intermittent diarrhea 6-8 episodes a day from his prior IBS and is scheduled to see GI however the frequency of diarrhea along with abdominal pain worsened over the last 48 hours with increasing frequency of stooling. Symptoms are associated loss of appetite/severe weakness. This morning after he got up he became extremely dizzy and was a barely able to move around function. With increasing concerns patient was brought into the ER along with his . Initial work-up was consistent with septic shock with blood pressure mid 40, patient was promptly started on crystalloids, blood cultures were drawn and vasopressors initiated. Patient was started on vancomycin and Zosyn. CT abdomen chest pelvis no evidence of acute process except for cholelithiasis. UA pending. Labs remarkable for white count over 28,000 with bandemia/elevated lactate/acute renal failure. Central line was secured in the ER Hospitalist service was consulted for admission in light of septic shock. On evaluation patient is very anxious and lethargic but was able to endorse history as above. He denies IV drug use. 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 No overnight events. No concerns per staff. No fever chills nausea vomiting. Improved labs and hemodynamics. Off pressors. Improving urine output. Complains of headache. Restart home medications. White count down from 28.4-19,000. 12% bands. No obvious source identified as yet. Cultures negative so far. Creatinine down to 1.1 from 2.4. LFT stable. Blood cultures gram-positive cocci. 11/14-patient clinically improved with white count down to 16.3. Off pressors. Persistent gram-positive bacteremia on surveillance cultures staph aureus. ID consulted. Likely source right foot infection. Patient complains of significant right foot swelling over the last few days and difficulty weightbearing. He also endorses a history of prior foot surgery few years back with hardware in place. MRI ordered. Renal function normalized 2.8. On phosphorus/magnesium replacement as indicated. Improved blood sugars. Complains of heartburn requiring Tums transfer to medical floor with investment accountant - Constitutional Vitals: Vital Signs Temp Pulse Resp BP Pulse Ox 98.8 F 98 H 28 H 128/50 96 11/15/19 07:47 11/15/19 07:47 11/15/19 07:47 11/15/19 07:47 11/15/19 07:47 Period Temp Pulse Resp BP Sys/Bradford Pulse Ox Last 24 Hr 97.2 F-100.2 F 96-113 13-31 109-151/50-110 89-100 Intake and Output 11/14/19 11/15/19 11/15/19 21:59 05:59 13:59 Intake Total 3090 2583 550 Output Total 2750 2275 750 Balance 340 308 -200 Weight 341 lb Intake & Output: Intake & Output 11/14/19 11/15/19 11/15/19 21:59 05:59 13:59 Intake Total 3090 2583 550 Output Total 2750 2275 750 Balance 340 308 -200 Weight 341 lb Intake: IV 550 1503 550 Sodium Chloride 0.9% 1,000 ml @ 953 100 mls/hr IV .Q10H [facility] Rx#: [id number] Zosyn 3.375 gm In Dextrose 5% 50 50 50 in Water 50 ml @ 100 mls/hr IV Q6H [facility] Rx#:[id number] Vancomycin 1,500 mg In Sodium 500 500 500 Chloride 0.9% 500 ml @ 333.3 mls/hr IV Q8H [facility] Rx#:[id number] Oral 2540 1080 Output: Void Amount 2350 1625 450 Stool 200 650 300 Emesis 200 Other: Meal Dinner Percent of Meal Consumed 50% Feeding Ability Independent Urine Appearance Clear Clear Clear Urine Color Pale Bright Yellow Dark Yellow Urine Odor Normal Stool Size Small Moderate Stool Color Brown Green Green Green Stool Consistency Liquid Liquid Liquid Watery # Bowel Movements 1 1 # Emes[place] 1 Medical - PN: Obj Da - Labs CBC & Chem 7: 11/15/19 05:00 11/15/19 05:00 Labs: Abnormal Lab Results 11/15/19 11/15/19 11/14/19 05:00 05:00 05:00 WBC 16.3 H RBC 3.52 L Hgb 10.2 L Hct 31.6 L POC Hct MPV 10.5 H Gran % Lymph % (Auto) Gran # Lymph # (Auto) [place] # (Auto) Seg Neutrophils % 92 H Band Neutrophils % Lymphocytes % 3 L VBG Lactic Acid Chloride Carbon Dioxide 17 L 20 L POC Total CO2 Anion Gap 20.0 H 18.0 H POC BUN BUN Creatinine POC Creatinine Glucose 179 H 137 H POC Glucose POC WB Ioniz Calcium Phosphorus 1.3 L 2.0 L GGT 140 H 173 H Alkaline Phosphatase Lactate Dehydrogenase 365 H C-Reactive Protein Globulin 4.0 H Albumin/Globulin Ratio 0.8 L 0.9 L Triglycerides 522 H 481 H Urine Protein Urine Glucose (UA) 11/14/19 11/13/19 11/13/19 05:00 16:35 10:33 WBC 19.0 H RBC 3.87 L Hgb 11.1 L Hct 34.3 L POC Hct 35.0 L MPV Gran % Lymph % (Auto) Gran # Lymph # (Auto) [place] # (Auto) Seg Neutrophils % 80 H Band Neutrophils % 12 H Lymphocytes % 4 L VBG Lactic Acid Chloride Carbon Dioxide POC Total CO2 21 L Anion Gap POC BUN 37 H BUN Creatinine POC Creatinine 2.4 H Glucose POC Glucose 300 H POC WB Ioniz Calcium 1.09 L Phosphorus GGT Alkaline Phosphatase Lactate Dehydrogenase C-Reactive Protein Globulin Albumin/Globulin Ratio Triglycerides Urine Protein 30 A Urine Glucose (UA) >=500 A 11/13/19 11/13/19 11/13/19 10:33 10:32 10:32 WBC 28.4 H RBC 3.91 L Hgb 11.7 L Hct 34.7 L POC Hct MPV 10.6 H Gran % 94.0 H Lymph % (Auto) 1.9 L Gran # 26.75 H Lymph # (Auto) 0.54 L [place] # (Auto) 1.01 H Seg Neutrophils % Band Neutrophils % Lymphocytes % VBG Lactic Acid Chloride 95 L Carbon Dioxide 17 L POC Total CO2 Anion Gap 22.0 H POC BUN BUN 41 H Creatinine 2.1 H POC Creatinine Glucose 305 H POC Glucose POC WB Ioniz Calcium Phosphorus GGT Alkaline Phosphatase 36 L Lactate Dehydrogenase C-Reactive Protein 7.2 H Globulin Albumin/Globulin Ratio Triglycerides Urine Protein Urine Glucose (UA) 11/13/19 10:32 WBC RBC Hgb Hct POC Hct MPV Gran % Lymph % (Auto) Gran # Lymph # (Auto) [place] # (Auto) Seg Neutrophils % Band Neutrophils % Lymphocytes % VBG Lactic Acid 3.9 H Chloride Carbon Dioxide POC Total CO2 Anion Gap POC BUN BUN Creatinine POC Creatinine Glucose POC Glucose POC WB Ioniz Calcium Phosphorus GGT Alkaline Phosphatase Lactate Dehydrogenase C-Reactive Protein Globulin Albumin/Globulin Ratio Triglycerides Urine Protein Urine Glucose (UA) Meds: Medications Acetaminophen (Tylenol) 650 mg PO Q4-6HP PRN; Protocol PRN Reason: Per Pain Protocol/Fever > 101 Hydrocodone Bitart/Acetaminophen ([place] 10/325mg) 2 tab PO QIDP PRN; Protocol PRN Reason: Pain Last Admin: 11/15/19 08:24 Dose: 2 tab Documented by: Al Hydrox/Mg Hydrox/Simethicone (Maalox) 30 ml PO Q6HP PRN PRN Reason: Dyspepsia Bisacodyl (Dulcolax) 10 mg VT Q2-3DAYS PRN PRN Reason: Constipation Calcium Carbonate/Glycine (Tums) 500 mg CHEWED Q4HP PRN PRN Reason: Dyspepsia Last Admin: 11/15/19 07:12 Dose: 500 mg Documented by: Cefazolin Sodium (Ancef) 2 gm IV Q8H [facility] Cyanocobalamin (Vitamin B-12) 1,000 mcg PO BID [facility] Stop: 11/18/19 09:01 Last Admin: 11/14/19 21:56 Dose: Not Given Documented by: Dextrose (Dextrose 50%) 0 ml IV UD PRN PRN Reason: Hypoglycemia Diagnostic Test (Pha) (Accu-Chek) 1 each FS ACHS [facility] Last Admin: 11/15/19 07:15 Dose: 1 each Documented by: Docusate Sodium (Colace) 100 mg PO BID [facility] Last Admin: 11/15/19 09:01 Dose: Not Given Documented by: Fenofibrate (Antara) 43 mg PO HS [facility] Folic Acid (Folic Acid) 1 mg PO DAILY [facility] Last Admin: 11/14/19 09:34 Dose: 1 mg Documented by: Glucose (Insta-Glucose) 15 gm PO PRN PRN PRN Reason: Hypoglycemia Heparin Sodium (Porcine) (Heparin) 5,000 unit SQ Q12 [facility] Last Admin: 11/14/19 20:37 Dose: 5,000 unit Documented by: Sodium Chloride (Sodium Chloride 0.9%) 1,000 mls @ 100 mls/hr IV .Q10H [facility] Last Admin: 11/14/19 23:49 Dose: 100 mls/hr Documented by: Acetaminophen (Ofirmev) 650 mg in 65 mls @ 130 mls/hr IV Q6HP PRN; Protocol PRN Reason: Per Pain Protocol/Fever > 101 Last Infusion: 11/14/19 10:05 Dose: Infused Documented by: Potassium Chloride 40 meq/ (Dextrose) 520 mls @ 130 mls/hr IV UD PRN PRN Reason: K+ = or < 3.5 Magnesium Sulfate (Magnesium Sulfate) 2 gm in 50 mls @ 50 mls/hr IV UD PRN PRN Reason: MG = or < 1.7 Last Admin: 11/15/19 08:53 Dose: 50 mls/hr Documented by: Norepinephrine Bitartrate 8 mg (/ Sodium Chloride) 250 mls @ 18.75 mls/hr IV Q14H PRN; Protocol PRN Reason: TITRATE TO KEEP MAP > 65 Insulin Human Lispro (Humalog) 0 unit SQ ACHS [facility]; Protocol Last Admin: 11/15/19 07:28 Dose: 3 units Documented by: Iron Carb/Multivit/Hill/Folic Acid (Multivitamin W/Minerals) 1 tab PO DAILY [facility] Last Admin: 11/14/19 09:33 Dose: 1 tab Documented by: Levothyroxine Sodium (Synthroid) 100 mcg PO ACB [facility] Last Admin: 11/15/19 07:11 Dose: 100 mcg Documented by: Levothyroxine Sodium (Synthroid) 75 mcg PO ACB [facility] Last Admin: 11/15/19 07:11 Dose: 75 mcg Documented by: Melatonin (Melatonin 3mg Tablet) 3 mg PO HSP PRN PRN Reason: Insomnia Metformin HCl (Glucophage) 1,000 mg PO BIDCC [facility] Last Admin: 11/15/19 08:24 Dose: 1,000 mg Documented by: Ondansetron HCl (Zofran Odt) 4 mg SL Q4-6HP PRN; Protocol PRN Reason: Nausea And Vomiting Last Admin: 11/14/19 07:21 Dose: 4 mg Documented by: Ondansetron HCl (Zofran) 4 mg IV Q4-6HP PRN; Protocol PRN Reason: Nausea And Vomiting Last Admin: 11/15/19 05:04 Dose: 4 mg Documented by: Oxycodone/Acetaminophen (Percocet 5-325 Mg) 1 tab PO Q6H [facility]; Protocol Last Admin: 11/15/19 05:14 Dose: 1 tab Documented by: Empagliflozin [ Jardiance] 25 Mg Tablet 1 dose PO HS [facility] Last Admin: 11/14/19 20:38 Dose: Not Given Documented by: Potassium Chloride (Klor-Con) 40 meq PO DAILYP PRN PRN Reason: K+ < 3.5 Pregabalin (Lyrica) 400 mg PO DAILY [facility] Pregabalin (Lyrica) 200 mg PO [facility] Last Admin: 11/14/19 20:38 Dose: 200 mg Documented by: Sodium Chloride (Saline Flush) 10 ml IV Q8 [facility] Last Admin: 11/15/19 05:15 Dose: 10 ml Documented by: Sodium Chloride (Saline Flush) 10 ml IV Q12 [facility] Thiamine HCl (Vitamin B1) 100 mg PO DAILY [facility] Last Admin: 11/14/19 09:33 Dose: 100 mg Documented by: Medical - PN: A/P - Time Spent With Patient Total time spent is greater than 50% in coordination of care (as documented) at patient's floor/unit and/or counseling patient: 25 - 35 minutes (1) Septic shock Status: Acute Assessment and plan: * Septic shock of secondary MSSA bacteremia. Off pressors. Much improved endorgan dysfunction. * MSSA bacteremia -echocardiogram pending.aggressive source evaluation likely right foot infection. MRI ordered. * Right foot swelling/cellulitis likely source of infection. MRI today * Acute renal failure-resolved with creatinine down from 2.5-0.8 * Acute change in mental status secondary to sepsis endorgan dysfunction. Clinically back to baseline * DM type II-continue CCD/metformin/home medications * Morbid obesity with BMI over 39-continue directed therapies/dietitian consult * History of hypertension -restart antihypertensives once systolics over 140 * Degenerative joint disease-continue home dose opioids * Neuropathy on gabapentin * Hypothyroidism on thyroxine at home * Full code * Prophylax Heparin Plan * Continue surveillance cultures/echocardiogram/source evaluation for bacteremia * MRI right foot * ID consult * PT OT nutrition support * COVID-19 testing in light of history of URI a week ago/diarrhea Current Visit: Yes
[2019-11-15] MEDS ORDERED: ceFAZolin 2 GM in DEXTROSE 5% IN WATER 50 ML IV SCH (09:15)
[2019-11-15] MEDS: CYANOCOBALAMIN (VITAMIN B-12) 500 MCG TABLET PO SCH ×2 (09:33→21:40)
[2019-11-15] MEDS: HEPARIN 5,000 UNIT/ML VIAL SQ SCH ×2 (09:34→21:16)
[2019-11-15] MEDS: THIAMINE 100 MG TABLET PO SCH (09:34)
[2019-11-15] MEDS: FOLIC ACID 1 MG TABLET PO SCH (09:34)
[2019-11-15] MEDS: MULTIVIT,THER IRON,CA,FA & MIN 1 TABLET PO SCH (09:34)
[2019-11-15] MEDS ORDERED: ceFAZolin 1 GM VIAL IV SCH (10:00)
[2019-11-15] MEDS ORDERED: NEUTRA PHOS 1 PACKET PO PRN (10:08)
[2019-11-15] MEDS ORDERED: MAGNESIUM SULFATE 2 GM/50 ML BAG IV PRN (10:08)
[2019-11-15] MEDS ORDERED: DEXTROSE 50% 50 ML VIAL IV PRN (10:08)
[2019-11-15] MEDS ORDERED: BISACODYL 10 MG SUPP.RECT PR PRN (10:08)
[2019-11-15] MEDS ORDERED: POTASSIUM CHLORIDE 20 MEQ PACKET PO PRN (10:08)
[2019-11-15] MEDS ORDERED: ONDANSETRON 4 MG ODT TABLET SL PRN (10:08)
[2019-11-15] MEDS ORDERED: ACETAMINOPHEN 650 MG/65 ML BOTTLE IV PRN (10:08)
[2019-11-15] MEDS ORDERED: DEXTROSE 31 GM ORAL.SUSP PO PRN (10:08)
[2019-11-15] MEDS ORDERED: POTASSIUM CHLORIDE 40 MEQ in DEXTROSE 5% IN WATER 500 ML IV PRN (10:08)
[2019-11-15] MEDS: 0.9 % SODIUM CHLORIDE 1,000 ML IV SCH ×3 (11:23→21:43)
[2019-11-15] MEDS: CALCIUM CARBONATE 500 MG TAB.CHEW CHEWED PRN (12:47)
--- NOTE | 2019-11-15 13:09 | Infectious Disease Consult ---
History of Present Illness Patient information: Note initiated : 11/15/19 at 12:33 pm Service Date, if different from initiated Date: [] Patient: Ahmet Zelaya 39 y/o M admitted on 11/13/19 for severe abdominal pain, hypotension. Chief Complaint: [] Consult date: 11/15/19 Requesting Physician: Noe Victoria Reason for Consult: MSSA bacteremia Chief complaint: I passed out before admission History of present illness: HPI obtained from pt and chart review 39 year old man with PMHx of: - DM2, with most recent A1C of 8 - peripheral neuropathy - charcot foot with mid-foot collapse, with surgical correction in 2017 [1. Medial column fusion 2. Lateral 4th column fusion 3. Tendoachilles lengthening] - IBS with chronic intermittent diarrhea Pt was admitted on 11/12 after passing out at home. He had been having belly pain with nausea, vomiting and diarrhea for past 1 day. Patient also reported noticing fevers of around 100 F along with redness and swelling of his right foot. At the time of arrival his systolic blood pressure was low in 50s to 60s. Patient also reports that he was having URI-like symptoms [stuffy nose, sinus drainage, cough] few days prior. His 4-year-old son had a recent episode of sore throat. He was given a Z-Sandeep along with Sudafed last week. Initial work-up in ED was consistent with septic shock with blood pressure mid 40, patient was promptly started on crystalloids, blood cultures were drawn and vasopressors initiated. Patient was started on vancomycin and Zosyn. CT abdomen chest pelvis no evidence of acute process except for cholelithiasis. UA pending. Labs remarkable for white count over 28,000 with bandemia/elevated lactate/acute renal failure. Central line was secured in the ER Patient's blood cultures (2/2 sets) drawn on admission came positive for GPC in clusters on and found to be due to MSSA. Repeat blood cultures (2/2 sets) were sent on 13 November which also came +ve for Staph aureus. Wound Cx obtained from left foot grew MSSA. At time of visit today, patient reported feeling better. He confirmed above history. Denied any nausea, vomiting, allergies. Mentioned that his blood sugars have not been under control although he is trying. He endorsed numbness and lack of sensation in his feet due to neuropathy. Review of Systems All systems PM: reviewed and no additional remarkable complaints except as stated Constitutional: as per HPI Medications and Allergies Home Medications Medication Instructions Recorded Confirmed Type empagliflozin 25 mg tablet 25 mg PO QHS 05/28/16 11/14/19 History glipizide 10 mg tablet 10 mg PO BID 05/28/16 11/14/19 History hydrocodone 10 mg-acetaminophen 2 tab PO QID PRN tab 05/28/16 11/14/19 History 325 mg tablet levothyroxine 175 mcg tablet 175 mcg PO QDAY 05/28/16 11/14/19 History metformin 1,000 mg tablet 1,000 mg PO BID 05/28/16 11/14/19 History pregabalin 200 mg capsule 200 mg PO BID cap 05/28/16 11/14/19 History oxycodone-acetaminophen 5 mg-325 1 tab PO Q6H #10 tab 02/17/18 11/14/19 Rx mg tablet Fenofibrate 54 mg PO QHS 11/14/19 11/14/19 History Losartan [Cozaar] 50 mg PO QAM 11/14/19 11/14/19 History Allergies Allergy/AdvReac Type Severity Reaction Status Date / Time No Known Drug Allergies Allergy Verified 11/13/19 09:59 Physical Examination Vital signs: Temp Pulse Resp BP Pulse Ox 37.7 C H 96 H 27 H 131/76 95 11/15/19 12:00 11/15/19 10:04 11/15/19 12:00 11/15/19 12:00 11/15/19 12:00 General appearance: no acute distress Eyes pulmonary: nonicteric Neck: other (Has a central line in the right side of neck) Effort: normal Auscultation: bilateral: clear Cardiovascular: other (S1-S2 normal, no murmurs heard) Gastrointestinal: normoactive bowel sounds, soft, non-tender Extremities: other (Right foot is swollen compared to left side. Is mildly red and warm to touch. Nontender. No ulcers or vesicles. Patient has few scabbed areas over his legs on both sides) Results - Laboratory Findings CBC and BMP: 11/15/19 05:00 11/15/19 05:00 Abnormal lab findings: Abnormal Labs 11/13/19 11/13/19 11/13/19 10:32 10:32 10:32 WBC RBC Hgb Hct POC Hct MPV Gran % Lymph % (Auto) Gran # Lymph # (Auto) [place] # (Auto) Seg Neutrophils % Band Neutrophils % Lymphocytes % VBG Lactic Acid 3.9 H Chloride 95 L Carbon Dioxide 17 L POC Total CO2 Anion Gap 22.0 H POC BUN BUN 41 H Creatinine 2.1 H POC Creatinine Glucose 305 H POC Glucose POC WB Ioniz Calcium Phosphorus GGT Alkaline Phosphatase 36 L Lactate Dehydrogenase C-Reactive Protein 7.2 H Globulin Albumin/Globulin Ratio Triglycerides Urine Protein Urine Glucose (UA) 11/13/19 11/13/19 11/13/19 10:33 10:33 16:35 WBC 28.4 H RBC 3.91 L Hgb 11.7 L Hct 34.7 L POC Hct 35.0 L MPV 10.6 H Gran % 94.0 H Lymph % (Auto) 1.9 L Gran # 26.75 H Lymph # (Auto) 0.54 L [place] # (Auto) 1.01 H Seg Neutrophils % Band Neutrophils % Lymphocytes % VBG Lactic Acid Chloride Carbon Dioxide POC Total CO2 21 L Anion Gap POC BUN 37 H BUN Creatinine POC Creatinine 2.4 H Glucose POC Glucose 300 H POC WB Ioniz Calcium 1.09 L Phosphorus GGT Alkaline Phosphatase Lactate Dehydrogenase C-Reactive Protein Globulin Albumin/Globulin Ratio Triglycerides Urine Protein 30 A Urine Glucose (UA) >=500 A 11/14/19 11/14/19 11/15/19 05:00 05:00 05:00 WBC 19.0 H 16.3 H RBC 3.87 L 3.52 L Hgb 11.1 L 10.2 L Hct 34.3 L 31.6 L POC Hct MPV 10.5 H Gran % Lymph % (Auto) Gran # Lymph # (Auto) [place] # (Auto) Seg Neutrophils % 80 H 92 H Band Neutrophils % 12 H Lymphocytes % 4 L 3 L VBG Lactic Acid Chloride Carbon Dioxide 20 L POC Total CO2 Anion Gap 18.0 H POC BUN BUN Creatinine POC Creatinine Glucose 137 H POC Glucose POC WB Ioniz Calcium Phosphorus 2.0 L GGT 173 H Alkaline Phosphatase Lactate Dehydrogenase 365 H C-Reactive Protein Globulin Albumin/Globulin Ratio 0.9 L Triglycerides 481 H Urine Protein Urine Glucose (UA) 11/15/19 05:00 WBC RBC Hgb Hct POC Hct MPV Gran % Lymph % (Auto) Gran # Lymph # (Auto) [place] # (Auto) Seg Neutrophils % Band Neutrophils % Lymphocytes % VBG Lactic Acid Chloride Carbon Dioxide 17 L POC Total CO2 Anion Gap 20.0 H POC BUN BUN Creatinine POC Creatinine Glucose 179 H POC Glucose POC WB Ioniz Calcium Phosphorus 1.3 L GGT 140 H Alkaline Phosphatase Lactate Dehydrogenase C-Reactive Protein Globulin 4.0 H Albumin/Globulin Ratio 0.8 L Triglycerides 522 H Urine Protein Urine Glucose (UA) Microbiology: Microbiology 11/14/19 11:27 Blood Blood Culture - Preliminary Gram positive cocci 11/14/19 11:33 Blood Blood Culture - Preliminary Staphylococcus aureus 11/13/19 11:09 Foot - Left Gram Stain - Final 11/13/19 11:09 Foot - Left Wound Culture - Final Staphylococcus aureus 11/13/19 11:20 Blood Blood Culture - Preliminary Staphylococcus aureus 11/14/19 05:45 Stool C. difficile GDH Antigen & Toxins - Final 11/13/19 11:08 Blood Blood Culture - Preliminary Gram positive cocci Assessment and Plan - Narrative A/P Narrative: A: 1. MSSA bacteremia: Could be complicated as patient has multiple positive blood cultures although will wait for full 72 hours -Likely sources is scabbed wounds over his extremities, of which 1 grew MSSA as well -Septic shock secondary to bacteremia 2. Type 2 diabetes with peripheral neuropathy 3. IBS/gastroparesis Recommendations: Patient meets criteria for COVID-19 testing. A test was sent today Stop IV Vanco and IV Zosyn. Start IV cefazolin 2 g every 8 hours Await TTE results. will plan for outpatient [facility] or repeat TTE [based on feasibility] Consider doing MRI of right foot to assess extent of infection and whether or not any drainage is needed Remove right IJ [as part of source control] as patient is off pressors, and it is likely seeded due to ongoing bacteremia - A PICC line could be placed once patient has negative blood cultures for 48 hours MRSA nasal PCR sent. If positive, will consider decolonization with intranasal mupirocin and below neck whole body chlorhexidine [2%] wipe bathing will follow Maulik Lofton MD Infectious disease
[2019-11-15] MEDS ORDERED: hydrALAZINE 20 MG/ML VIAL IV PRN (13:27)
--- NOTE | 2019-11-15 13:29 | Internal Med Progress Note ---
Medical - PN: Subj Patient information: Note initiated : 11/15/19 at 1:22 pm Service Date, if different from initiated Date: [] Patient: Ahmet Zelaya 39 y/o M admitted on 11/13/19 for severe abdominal pain, hypotension. Chief Complaint: [] Interval history: Mr. Zelaya is a 39 year old M with history of IBS/diabetes and morbid obesity who was in his baseline state of health until roughly 7 days prior to pre sentation started experiencing URI symptoms with stuffy nose and sinus drainage. His 4-year-old son had a recent episode of sore throat his only sick contact he could remember. He was started on Z-Sandeep along with Sudafed however over the next 4 days he started experiencing increasing diarrhea weakness along with yellow-green postnasal drip/sputum. He however denied shaking chills but endorses to low-grade fever. He normally experiences intermittent diarrhea 6-8 episodes a day from his prior IBS and is scheduled to see GI however the frequency of diarrhea along with abdominal pain worsened over the last 48 hours with increasing frequency of stooling. Symptoms are associated loss of appetite/severe weakness. This morning after he got up he became extremely dizzy and was a barely able to move around function. With increasing concerns patient was brought into the ER along with his . Initial work-up was consistent with septic shock with blood pressure mid 40, patient was promptly started on crystalloids, blood cultures were drawn and vasopressors initiated. Patient was started on vancomycin and Zosyn. CT abdomen chest pelvis no evidence of acute process except for cholelithiasis. UA pending. Labs remarkable for white count over 28,000 with bandemia/elevated lactate/acute renal failure. Central line was secured in the ER Hospitalist service was consulted for admission in light of septic shock. On evaluation patient is very anxious and lethargic but was able to endorse history as above. He denies IV drug use. 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 No overnight events. No concerns per staff. No fever chills nausea vomiting. Improved labs and hemodynamics. Off pressors. Improving urine output. Complains of headache. Restart home medications. White count down from 28.4-19,000. 12% bands. No obvious source identified as yet. Cultures negative so far. Creatinine down to 1.1 from 2.4. LFT stable. Blood cultures gram-positive cocci. 11/14-patient clinically improved with white count down to 16.3. Off pressors. Persistent gram-positive bacteremia on surveillance cultures staph aureus. ID consulted. Likely source right foot infection. Patient complains of significant right foot swelling over the last few days and difficulty weightbearing. He also endorses a history of prior foot surgery few years back with hardware in place. MRI ordered. Renal function normalized 2.8. On phosphorus/magnesium replacement as indicated. Improved blood sugars. Complains of heartburn requiring Tums transfer to medical floor with monitor technician 11/15 - Constitutional Vitals: Vital Signs Temp Pulse Resp BP Pulse Ox 99.9 F H 96 H 27 H 131/76 95 11/15/19 12:00 11/15/19 10:04 11/15/19 12:00 11/15/19 12:00 11/15/19 12:00 Period Temp Pulse Resp BP Sys/Bradford Pulse Ox Last 24 Hr 98.8 F-100.2 F 95-101 13-28 110-151/50-110 89-100 Intake and Output 11/14/19 11/15/19 11/15/19 21:59 05:59 13:59 Intake Total 3090 2583 2080 Output Total 2750 2275 1350 Balance 340 308 730 Weight 154.675 kg Intake & Output: Intake & Output 11/14/19 11/15/19 11/15/19 21:59 05:59 13:59 Intake Total 3090 2583 2080 Output Total 2750 2275 1350 Balance 340 308 730 Weight 154.675 kg Intake: IV 550 1503 1600 Sodium Chloride 0.9% 1,000 ml @ 953 1000 100 mls/hr IV .Q10H KEKE Rx#: [id number] Zosyn 3.375 gm In Dextrose 5% 50 50 50 in Water 50 ml @ 100 mls/hr IV Q6H KEKE Rx#:[id number] Vancomycin 1,500 mg In Sodium 500 500 500 Chloride 0.9% 500 ml @ 333.3 mls/hr IV Q8H KEKE Rx#:[id number] Oral 2540 1080 480 Output: Void Amount 2350 1625 1050 Stool 200 650 300 Emesis 200 Other: Meal Dinner Percent of Meal Consumed 50% Feeding Ability Independent Urine Appearance Clear Clear Clear Uretheral (Ramos) Clear Urine Color Pale Bright Yellow Dark Yellow Uretheral (Ramos) Dark Yellow Urine Odor Normal Normal Stool Size Small Moderate Stool Color Brown Green Green Green Stool Consistency Liquid Liquid Liquid Watery # Bowel Movements 1 1 # Emeses 1 Exam: General: Alert, Awake, No acute Distress, obese Eyes/N/T: EOMI, Head/Neck: neck supple, CV: RRR, No murmurs, Pulm: Clear b/l, no wheezing/rhonchi/rales Abd: soft, nontender, +BS x4 Ext: no clubbing/cyanosis/edema Neuro: Alert, no focal deficits, moves all extremities, Skin: warm/dry Medical - PN: Obj Da - Labs CBC & Chem 7: 11/15/19 05:00 11/15/19 05:00 Labs: Abnormal Lab Results 11/15/19 11/15/19 11/14/19 05:00 05:00 05:00 WBC 16.3 H RBC 3.52 L Hgb 10.2 L Hct 31.6 L POC Hct MPV 10.5 H Gran % Lymph % (Auto) Gran # Lymph # (Auto) [place] # (Auto) Seg Neutrophils % 92 H Band Neutrophils % Lymphocytes % 3 L VBG Lactic Acid Chloride Carbon Dioxide 17 L 20 L POC Total CO2 Anion Gap 20.0 H 18.0 H POC BUN BUN Creatinine POC Creatinine Glucose 179 H 137 H POC Glucose POC WB Ioniz Calcium Phosphorus 1.3 L 2.0 L GGT 140 H 173 H Alkaline Phosphatase Lactate Dehydrogenase 365 H C-Reactive Protein Globulin 4.0 H Albumin/Globulin Ratio 0.8 L 0.9 L Triglycerides 522 H 481 H Urine Protein Urine Glucose (UA) 11/14/19 11/13/19 11/13/19 05:00 16:35 10:33 WBC 19.0 H RBC 3.87 L Hgb 11.1 L Hct 34.3 L POC Hct 35.0 L MPV Gran % Lymph % (Auto) Gran # Lymph # (Auto) [place] # (Auto) Seg Neutrophils % 80 H Band Neutrophils % 12 H Lymphocytes % 4 L VBG Lactic Acid Chloride Carbon Dioxide POC Total CO2 21 L Anion Gap POC BUN 37 H BUN Creatinine POC Creatinine 2.4 H Glucose POC Glucose 300 H POC WB Ioniz Calcium 1.09 L Phosphorus GGT Alkaline Phosphatase Lactate Dehydrogenase C-Reactive Protein Globulin Albumin/Globulin Ratio Triglycerides Urine Protein 30 A Urine Glucose (UA) >=500 A 11/13/19 11/13/19 11/13/19 10:33 10:32 10:32 WBC 28.4 H RBC 3.91 L Hgb 11.7 L Hct 34.7 L POC Hct MPV 10.6 H Gran % 94.0 H Lymph % (Auto) 1.9 L Gran # 26.75 H Lymph # (Auto) 0.54 L [place] # (Auto) 1.01 H Seg Neutrophils % Band Neutrophils % Lymphocytes % VBG Lactic Acid Chloride 95 L Carbon Dioxide 17 L POC Total CO2 Anion Gap 22.0 H POC BUN BUN 41 H Creatinine 2.1 H POC Creatinine Glucose 305 H POC Glucose POC WB Ioniz Calcium Phosphorus GGT Alkaline Phosphatase 36 L Lactate Dehydrogenase C-Reactive Protein 7.2 H Globulin Albumin/Globulin Ratio Triglycerides Urine Protein Urine Glucose (UA) 11/13/19 10:32 WBC RBC Hgb Hct POC Hct MPV Gran % Lymph % (Auto) Gran # Lymph # (Auto) [place] # (Auto) Seg Neutrophils % Band Neutrophils % Lymphocytes % VBG Lactic Acid 3.9 H Chloride Carbon Dioxide POC Total CO2 Anion Gap POC BUN BUN Creatinine POC Creatinine Glucose POC Glucose POC WB Ioniz Calcium Phosphorus GGT Alkaline Phosphatase Lactate Dehydrogenase C-Reactive Protein Globulin Albumin/Globulin Ratio Triglycerides Urine Protein Urine Glucose (UA) Meds: Medications Acetaminophen (Tylenol) 650 mg PO Q4-6HP PRN; Protocol PRN Reason: Per Pain Protocol/Fever > 101 Hydrocodone Bitart/Acetaminophen (Sapello 10/325mg) 2 tab PO QIDP PRN; Protocol PRN Reason: Pain Al Hydrox/Mg Hydrox/Simethicone (Maalox) 30 ml PO Q6HP PRN PRN Reason: Dyspepsia Bisacodyl (Dulcolax) 10 mg IL Q2-3DAYS PRN PRN Reason: Constipation Calcium Carbonate/Glycine (Tums) 500 mg CHEWED Q4HP PRN PRN Reason: Dyspepsia Last Admin: 11/15/19 12:47 Dose: 500 mg Documented by: Cefazolin Sodium (Ancef) 2 gm IV Q8H KEKE Cyanocobalamin (Vitamin B-12) 1,000 mcg PO BID KEKE Stop: 11/17/19 09:01 Dextrose (Dextrose 50%) 0 ml IV UD PRN PRN Reason: Hypoglycemia Diagnostic Test (Pha) (Accu-Chek) 1 each FS ACHS KEKE Last Admin: 11/15/19 11:25 Dose: 1 each Documented by: Docusate Sodium (Colace) 100 mg PO BID KEKE Fenofibrate (Antara) 43 mg PO HS KEKE Folic Acid (Folic Acid) 1 mg PO DAILY KEKE Glucose (Insta-Glucose) 15 gm PO PRN PRN PRN Reason: Hypoglycemia Heparin Sodium (Porcine) (Heparin) 5,000 unit SQ Q12 KEKE Potassium Chloride 40 meq/ (Dextrose) 520 mls @ 130 mls/hr IV UD PRN PRN Reason: K+ = or < 3.5 Magnesium Sulfate (Magnesium Sulfate) 2 gm in 50 mls @ 50 mls/hr IV UD PRN PRN Reason: MG = or < 1.7 Sodium Chloride (Sodium Chloride 0.9%) 1,000 mls @ 100 mls/hr IV .Q10H [facility] Last Admin: 11/15/19 11:23 Dose: 100 mls/hr Documented by: Acetaminophen (Ofirmev) 650 mg in 65 mls @ 130 mls/hr IV Q6HP PRN; Protocol PRN Reason: Per Pain Protocol/Fever > 101 Insulin Human Lispro (Humalog) 0 unit SQ ACHS [facility]; Protocol Last Admin: 11/15/19 12:10 Dose: 2 unit Documented by: Iron Carb/Multivit/Mental Health Coordinator/Folic Acid (Multivitamin W/Minerals) 1 tab PO DAILY KEKE Levothyroxine Sodium (Synthroid) 100 mcg PO ACB KEKE Levothyroxine Sodium (Synthroid) 75 mcg PO ACB KEKE Loperamide HCl (Imodium) 2 mg PO DAILYP PRN PRN Reason: Diarrhea Melatonin (Melatonin 3mg Tablet) 3 mg PO HSP PRN PRN Reason: Insomnia Metformin HCl (Glucophage) 1,000 mg PO BIDCC KEKE Ondansetron HCl (Zofran Odt) 4 mg SL Q4-6HP PRN; Protocol PRN Reason: Nausea And Vomiting Ondansetron HCl (Zofran) 4 mg IV Q4-6HP PRN; Protocol PRN Reason: Nausea And Vomiting Oxycodone/Acetaminophen (Percocet 5-325 Mg) 1 tab PO Q6H [facility]; Protocol Last Admin: 11/15/19 12:38 Dose: 1 tab Documented by: Empagliflozin [ Jardiance] 25 Mg Tablet 1 dose PO HS KEKE Potassium Chloride (Klor-Con) 40 meq PO DAILYP PRN PRN Reason: K+ < 3.5 Potassium/Phosphorus/Sodium (Neutra Phos) 2 packet PO BIDP PRN PRN Reason: Phosphorus less than 2.6 Last Admin: 11/15/19 11:00 Dose: 2 packet Documented by: Pregabalin (Lyrica) 400 mg PO DAILY KEKE Pregabalin (Lyrica) 200 mg PO HS KEKE Sodium Chloride (Saline Flush) 10 ml IV Q8 KEKE Sodium Chloride (Saline Flush) 10 ml IV Q12 KEKE Thiamine HCl (Vitamin B1) 100 mg PO DAILY KEKE Medical - PN: A/P - Time Spent With Patient Total time spent is greater than 50% in coordination of care (as documented) at patient's floor/unit and/or counseling patient: - Narrative A/P Narrative: A: *Septic shock: 2/2 MSSA Bacteremia -off vasopressors *MSSA Bacteremia: unclear source. -echo no vegetations -MRI foot pending *KEN: 2/2 sepsis endorgan dysfunction. Improved *AMS: 2/2 sepsis endorgan dysfunction. Clinically improved *DM II w/neuropathy: *Morbid obesity with BMI over 39: *HTN: *Degenerative joint disease: continue home dose opioids *Hypothyroidism: on thyroxine at home Plan -pending Surveillance cultures -MRI pending -ID consulted, cefazolin -avoid nephrotoxinsn -continue CCD/metformin/home medications, SSI -Restart home ARB -PT OT nutrition support -ppx: Heparin
[2019-11-15] MEDS: ACETAMINOPHEN 325 MG TABLET PO PRN (14:19)
[2019-11-15] MEDS: LOPERAMIDE 2 MG CAPSULE PO PRN (14:19)
[2019-11-15] MEDS: ceFAZolin 1 GM VIAL IV SCH ×2 (16:08→21:42)
--- NOTE | 2019-11-15 16:38 | Magnetic Resonance Report ---
CLINICAL INFORMATION: Cellulitis and sepsis COMPARISON: Plain films 07/25/2018 TECHNIQUE: Axial T1 and T2 proton density coronal proton density sagittal T1 proton density and wire. FINDINGS: A long screw, extending through the entire first metatarsal, medial cuneiform and talar head/neck again appreciated. The screw is fractured in the talar region. Screw does not transfix the navicular which is sclerotic and displaced medially. The screw extends through the articulating surface of the first metatarsal head into the MTP joint. As result, there is reactive synovitis in the first MTP joint with excessive fluid and inflamed synovial soft tissue distending the capsule. There is fusion across the first MTT joint but no fusion between the medial cuneiform navicular and talus. A second shorter screw extends through the lateral calcaneus into the lateral cuboid near the base of the fifth metatarsal. The screw tip is likely located within the fifth MTT joint. There is mild osseous resorption of the medial fifth metatarsal base about the screw tip. As mentioned the navicular is diminutive irregular irregular contour with patchy sclerosis suggesting Charcot change. Marrow signal throughout the remaining right foot is unremarkable - no evidence of osteomyelitis. There are hammertoe deformities in the second through fifth digits. Moderate diffuse cellulitis and fasciitis changes seen within the forefoot and midfoot. No evidence of discrete abscess. Tendons and sheaths are normal. IMPRESSION: 1. No evidence of osteomyelitis. 2. Inflammation of the first MTP joint likely due to reactive synovitis related to projection of the screw tip through the articular surface of the first metatarsal. Septic arthritis possible but less likely. 3. Moderate cellulitis and fasciitis within the mid foot and forefoot. No evidence of discrete abscess. 4. First ray arthrodesis changes of the first metatarsal medial cuneiform and talus. Screw does not transfix the navicular which is displaced medially and has a Charcot type appearance as previously seen. The screw is fractured in the talar neck region 5. Gilman screw transfixing the calcaneus and cuboid with is solidly fused. The screw tip extends through the articular surface of calcaneus into the fifth MTP joint. The fifth metatarsal base is partially eroded about the screw tip 6. Pes planus and hammertoe deformities second through fifth digits - stable Interpreted and Authenticated by: Js Jasso 11/15/19
--- NOTE | 2019-11-15 17:26 | General Surgery Consult Note ---
History of Present Illness Patient information: Note initiated : 11/15/19 at 5:17 pm Service Date, if different from initiated Date: [] Patient: Ahmet Zelaya 39 y/o M admitted on 11/13/19 for severe abdominal pain, hypotension. Chief Complaint: [] Consult date: 11/15/19 Requesting physician: Bakari Orozco (Wound / Skin care ( Leg lesions )) History of present illness: 39/M. I saw this patient along with WOLF Rodriguez in ICU 120 / A. Went over details of patient's clinical ADMITTED history, presentation to ER and ICE and subsequent course over the previous 3 days. Admitted with Fever, AMS, Septic shock and treated aggressively with IV crystalloids. pressors and broad spectrum antibiotics for GPC bacteremia. Presumed source being CSSSI Right foot and leg and Left leg skin ulcers. Currently acute inflammatory skin changes of legs are resolving and skin lesions are scabbed. Patient is lucid, coherent and without amnesia. Hemodynamically stable and off IV pressors. DENIES any acute subjective systemic complaints at this time. Starting to feel better and his usual self again. I have reviewed input from Hospitalist Physician and ID specialist Dr. Maulik Lofton MD. Medications and Allergies Home Medications Medication Instructions Recorded Confirmed Type empagliflozin 25 mg tablet 25 mg PO QHS 05/28/16 11/14/19 History glipizide 10 mg tablet 10 mg PO BID 05/28/16 11/14/19 History hydrocodone 10 mg-acetaminophen 2 tab PO QID PRN tab 05/28/16 11/14/19 History 325 mg tablet levothyroxine 175 mcg tablet 175 mcg PO QDAY 05/28/16 11/14/19 History metformin 1,000 mg tablet 1,000 mg PO BID 05/28/16 11/14/19 History pregabalin 200 mg capsule 200 mg PO BID cap 05/28/16 11/14/19 History oxycodone-acetaminophen 5 mg-325 1 tab PO Q6H #10 tab 02/17/18 11/14/19 Rx mg tablet Fenofibrate 54 mg PO QHS 11/14/19 11/14/19 History Losartan [Cozaar] 50 mg PO QAM 11/14/19 11/14/19 History Allergies Allergy/AdvReac Type Severity Reaction Status Date / Time No Known Drug Allergies Allergy Verified 11/13/19 09:59 Exam Temp Pulse Resp BP Pulse Ox 99 F 97 H 17 140/71 96 11/15/19 16:02 11/15/19 16:02 11/15/19 16:02 11/15/19 16:02 11/15/19 16:02 - General physical appearance well developed, well nourished, no distress, no pain - Eyes PERRL, normal ocular movement - ENT normal pinna, normal nares, normal mucosa, no congestion - Head Head exam IM: Present: atraumatic, normocephalic - Neck no masses, trachea midline, no venous distension - Cardiovascular Cardiovascular exam IM: Present: normal rate and rhythm, tachycardia - Respiratory normal respiratory effort, clear to auscultation - Abdomen Abdomen: Present: soft, non tender, bowel sounds - Genitourinary Present: normal penis with no external lesions - Integumentary Present: other (Chronic psot surgery wounds feet and Stage 2/3 callus under plantar areas of LEFT and right foot. Dry scabbed skin lesions over Right and Left legs. There are fresh dressings over RIGHT foot and ankle. WILL REVIEW WOUNDS with nurse in AM ) - Neurologic Present: normal coordination, normal sensation, other (No gross focal neurological deficits noted. ) - Musculoskeletal Present: other (Bed confined at this time. NO grsoss assymetry or deformities noted. ) - Psychiatric Present: oriented to person, oriented to place. Absent: oriented to time, speec h is normal Results - Labs 11/16/19 04:50 11/16/19 04:50 Abnormal lab results 11/15/19 11/15/19 Range/Units 05:00 05:00 WBC 16.3 H (4.50-11.00) K/mcL RBC 3.52 L (4.63-6.08) M/mcL Hgb 10.2 L (13.7-17.5) g/dL Hct 31.6 L (40.1-51.0) % MPV 10.5 H (7.4-10.4) fL Seg Neutrophils % 92 H (38-78) % Lymphocytes % 3 L (15-49) % Carbon Dioxide 17 L (22-30) mmol/L Anion Gap 20.0 H (8-16) Glucose 179 H (70-105) mg/dL Phosphorus 1.3 L (2.7-4.5) mg/dL GGT 140 H (8-61) U/L Globulin 4.0 H (2.2-3.7) gm/dL Albumin/Globulin Ratio 0.8 L (1.0-2.3) Triglycerides 522 H (<150) mg/dl Diabetes panel 11/15/19 Range/Units 05:00 Sodium 136 (133-145) mmol/L Potassium 4.0 (3.3-5.1) mmol/L Chloride 99 (96-108) mmol/L Carbon Dioxide 17 L (22-30) mmol/L BUN 10 (6-20) mg/dl Creatinine 0.8 (0.7-1.2) mg/dl Glucose 179 H (70-105) mg/dL Calcium 8.9 (8.6-10.4) mg/dl AST 16 (0-37) U/l ALT 34 (0-40) U/l Alkaline Phosphatase 103 (39-117) U/L Total Protein 7.2 (5.9-8.4) gm/dL Albumin 3.2 (3.2-5.2) gm/dL Triglycerides 522 H (<150) mg/dl Calcium panel 11/15/19 Range/Units 05:00 Calcium 8.9 (8.6-10.4) mg/dl Phosphorus 1.3 L (2.7-4.5) mg/dL Albumin 3.2 (3.2-5.2) gm/dL Pituitary panel 11/15/19 Range/Units 05:00 Sodium 136 (133-145) mmol/L Potassium 4.0 (3.3-5.1) mmol/L Chloride 99 (96-108) mmol/L Carbon Dioxide 17 L (22-30) mmol/L BUN 10 (6-20) mg/dl Creatinine 0.8 (0.7-1.2) mg/dl Glucose 179 H (70-105) mg/dL Calcium 8.9 (8.6-10.4) mg/dl Adrenal panel 11/15/19 Range/Units 05:00 Sodium 136 (133-145) mmol/L Potassium 4.0 (3.3-5.1) mmol/L Chloride 99 (96-108) mmol/L Carbon Dioxide 17 L (22-30) mmol/L BUN 10 (6-20) mg/dl Creatinine 0.8 (0.7-1.2) mg/dl Glucose 179 H (70-105) mg/dL Calcium 8.9 (8.6-10.4) mg/dl Total Bilirubin 0.6 (0.0-1.0) mg/dL AST 16 (0-37) U/l ALT 34 (0-40) U/l Alkaline Phosphatase 103 (39-117) U/L Total Protein 7.2 (5.9-8.4) gm/dL Albumin 3.2 (3.2-5.2) gm/dL All other labs normal. Assessment and Plan (1) Skin and subcutaneous tissue disease Status: Acute Priority: High Comment: COMPLICATED SKIN AND SKIN STRUCTURE INFECTION RIGHT AND LEFT FEET AND LEGS. (2) Sepsis Status: Acute Priority: High Comment: Diabetes , neuropathy, Charcot Foot surgery RIGHT foot. PET animals at home. Qualifiers: Sepsis type: methicillin susceptible Staphylococcus aureus Sepsis acute organ dysfunction status: with acute organ dysfunction Severe sepsis acute organ dysfunction type: encephalopathy Severe sepsis shock status: with septic shock Qualified Code(s): A41.01 - Sepsis due to Methicillin susceptible Staphylococcus aureus; R65.21 - Severe sepsis with septic shock; G93.41 - Metabolic encephalopathy (3) Septic shock Status: Acute Priority: High (4) Uncontrolled diabetes mellitus Status: Acute Priority: High Qualifiers: Diabetes mellitus type: type 2 Glycemic state: with hyperglycemia Qualified Code(s): E11.65 - Type 2 diabetes mellitus with hyperglycemia (5) Wound of foot Status: Chronic Priority: Medium
[2019-11-15] MEDS ORDERED: MELATONIN 3 MG TABLET PO PRN (21:00)
[2019-11-15] MEDS ORDERED: FENOFIBRATE 43 MG CAPSULE PO SCH (21:00)
[2019-11-15] MEDS: FENOFIBRATE 43 MG CAPSULE PO SCH (21:16)
[2019-11-15] MEDS: PREGABALIN 100 MG CAPSULE PO SCH (21:39)
[2019-11-16] MEDS: oxyCODONE/APAP 5/325MG TABLET PO SCH ×5 (00:16→23:08)
[2019-11-16] MEDS: CALCIUM CARBONATE 500 MG TAB.CHEW CHEWED PRN ×3 (02:56→23:19)
[2019-11-16] MEDS: ONDANSETRON 4 MG/2 ML VIAL IV PRN (02:56)
[2019-11-16] MEDS: LOPERAMIDE 2 MG CAPSULE PO PRN ×3 (04:41→09:17)
[2019-11-16] MEDS: ceFAZolin 1 GM VIAL IV SCH ×3 (05:35→22:15)
[2019-11-16] MEDS ORDERED: oxyCODONE HCL 5 MG TABLET PO PRN (06:19)
[2019-11-16 06:20] LABS: Hematocrit 33.5 % (40.1-51.0); Hemoglobin 10.9 g/dL (13.7-17.5); Mean Cell Volume 89.8 fL (80.0-100.0); Mean Corpuscular HGB Conc 32.5 g/dL (31.0-36.0); Mean Platelet Volume 10.1 fL (7.4-10.4); Platelet Count 192 K/mcL (140-440); RBC 3.73 M/mcL (4.63-6.08); Red Cell Distribution Width 14.3 % (11.5-14.5); WBC 13.4 K/mcL (4.50-11.00)
[2019-11-16 06:58] LABS: ALT/SGPT 26 U/l (0-40); AST/SGOT 12 U/l (0-37); Albumin 3.3 gm/dL (3.2-5.2); Albumin/Globulin Ratio 0.8 (1.0-2.3); Alkaline Phosphatase 67 U/L (39-117); Bilirubin,Direct < 0.2 mg/dL (0.0-0.3); Bilirubin,Total 0.6 mg/dL (0.0-1.0); Blood Urea Nitrogen 11 mg/dl (6-20); Calcium 8.9 mg/dl (8.6-10.4); Carbon Dioxide 20 mmol/L (22-30); Chloride 99 mmol/L (96-108); Globulin 4.3 gm/dL (2.2-3.7); Glomerular Filtration Rate 118; Glucose 151 mg/dL (70-105); Lactate Dehydrogenase 214 U/L (94-250); Phosphorous 1.6 mg/dL (2.7-4.5); Triglycerides 454 mg/dl (<150); Uric Acid 3.5 mg/dL (2.5-8.0)
[2019-11-16] MEDS: 0.9 % SODIUM CHLORIDE 10 ML SYRINGE IV SCH ×4 (07:01→22:15)
--- NOTE | 2019-11-16 07:17 | Internal Med Progress Note ---
Medical - PN: Subj Patient information: Note initiated : 11/16/19 at 7:12 am Service Date, if different from initiated Date: [] Patient: Ahmet Zelaya 39 y/o M admitted on 11/13/19 for severe abdominal pain, hypotension. Chief Complaint: [] Interval history: Mr. Zelaya is a 39 year old M with history of IBS/diabetes and morbid obesity who was in his baseline state of health until roughly 7 days prior to pre sentation started experiencing URI symptoms with stuffy nose and sinus drainage. His 4-year-old son had a recent episode of sore throat his only sick contact he could remember. He was started on Z-Sandeep along with Sudafed however over the next 4 days he started experiencing increasing diarrhea weakness along with yellow-green postnasal drip/sputum. He however denied shaking chills but endorses to low-grade fever. He normally experiences intermittent diarrhea 6-8 episodes a day from his prior IBS and is scheduled to see GI however the frequency of diarrhea along with abdominal pain worsened over the last 48 hours with increasing frequency of stooling. Symptoms are associated loss of appetite/severe weakness. This morning after he got up he became extremely dizzy and was a barely able to move around function. With increasing concerns patient was brought into the ER along with his . Initial work-up was consistent with septic shock with blood pressure mid 40, patient was promptly started on crystalloids, blood cultures were drawn and vasopressors initiated. Patient was started on vancomycin and Zosyn. CT abdomen chest pelvis no evidence of acute process except for cholelithiasis. UA pending. Labs remarkable for white count over 28,000 with bandemia/elevated lactate/acute renal failure. Central line was secured in the ER Hospitalist service was consulted for admission in light of septic shock. On evaluation patient is very anxious and lethargic but was able to endorse history as above. He denies IV drug use. 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 No overnight events. No concerns per staff. No fever chills nausea vomiting. Improved labs and hemodynamics. Off pressors. Improving urine output. Complains of headache. Restart home medications. White count down from 28.4-19,000. 12% bands. No obvious source identified as yet. Cultures negative so far. Creatinine down to 1.1 from 2.4. LFT stable. Blood cultures gram-positive cocci. 11/14-patient clinically improved with white count down to 16.3. Off pressors. Persistent gram-positive bacteremia on surveillance cultures staph aureus. ID consulted. Likely source right foot infection. Patient complains of significant right foot swelling over the last few days and difficulty weightbearing. He also endorses a history of prior foot surgery few years back with hardware in place. MRI ordered. Renal function normalized 2.8. On phosphorus/magnesium replacement as indicated. Improved blood sugars. Complains of heartburn requiring Tums transfer to medical floor with athletic monitor 11/15 Slept all right. Says his right foot is little more swollen. Usually takes hydrochlorothiazide at home when he gets edema. Also feels his chronic back p ain is worsening and he states he takes 10 mg of hydrocodone 4 times a day and and as needed 1 occasionally. Has headaches. Review of Systems: denies fever/chills/nausea/vomiting/chest or abdominal pain/cough/dyspnea/diarrhea. Otherwise see above. - Constitutional Vitals: Vital Signs Temp Pulse Resp BP Pulse Ox 98.6 F 92 H 20 118/72 90 11/16/19 06:36 11/15/19 18:24 11/16/19 06:36 11/16/19 06:36 11/16/19 06:36 Period Temp Pulse Resp BP Sys/Bradford Pulse Ox Last 24 Hr 97.9 F-100.0 F 92-98 16-28 114-140/50-77 90-96 Intake and Output 11/15/19 11/16/19 11/16/19 21:59 05:59 13:59 Intake Total 1480 1920 Output Total 1800 1575 350 Balance -320 345 -350 Weight 155.174 kg Intake & Output: Intake & Output 11/15/19 11/16/19 11/16/19 21:59 05:59 13:59 Intake Total 1480 1920 Output Total 1800 1575 350 Balance -320 345 -350 Weight 155.174 kg Intake: IV 1000 Sodium Chloride 0.9% 1,000 ml @ 1000 100 mls/hr IV .Q10H KEKE Rx#: [id number] Oral 480 1920 Output: Void Amount 1600 1575 300 Stool 200 50 Other: Meal Dinner Percent of Meal Consumed 100% Feeding Ability Independent Urine Appearance Clear Clear Urine Color Dark Yellow Dark Yellow Urine Odor Normal Stool Color Green Green Stool Consistency Liquid Exam: General: Alert, Awake, No acute Distress, obese Eyes/N/T: EOMI, Head/Neck: neck supple, CV: RRR, 2/6 SM Pulm: Clear b/l, no wheezing/rhonchi/rales Abd: soft, nontender, +BS x4 Ext: no clubbing/cyanosis, RLE edema 2+ with erythema Neuro: Alert, no focal deficits, moves all extremities, Skin: warm/dry Medical - PN: Obj Da - Labs CBC & Chem 7: 11/16/19 04:50 11/16/19 04:50 Labs: Abnormal Lab Results 11/16/19 11/16/19 11/15/19 04:50 04:50 05:00 WBC 13.4 H RBC 3.73 L Hgb 10.9 L Hct 33.5 L POC Hct MPV Gran % Lymph % (Auto) Gran # Lymph # (Auto) [place] # (Auto) Seg Neutrophils % Band Neutrophils % Lymphocytes % VBG Lactic Acid Chloride Carbon Dioxide 20 L 17 L POC Total CO2 Anion Gap 20.0 H 20.0 H POC BUN BUN Creatinine POC Creatinine Glucose 151 H 179 H POC Glucose POC WB Ioniz Calcium Phosphorus 1.6 L 1.3 L GGT 124 H 140 H Alkaline Phosphatase Lactate Dehydrogenase C-Reactive Protein Globulin 4.3 H 4.0 H Albumin/Globulin Ratio 0.8 L 0.8 L Triglycerides 454 H 522 H Urine Protein Urine Glucose (UA) 11/15/19 11/14/19 11/14/19 05:00 05:00 05:00 WBC 16.3 H 19.0 H RBC 3.52 L 3.87 L Hgb 10.2 L 11.1 L Hct 31.6 L 34.3 L POC Hct MPV 10.5 H Gran % Lymph % (Auto) Gran # Lymph # (Auto) [place] # (Auto) Seg Neutrophils % 92 H 80 H Band Neutrophils % 12 H Lymphocytes % 3 L 4 L VBG Lactic Acid Chloride Carbon Dioxide 20 L POC Total CO2 Anion Gap 18.0 H POC BUN BUN Creatinine POC Creatinine Glucose 137 H POC Glucose POC WB Ioniz Calcium Phosphorus 2.0 L GGT 173 H Alkaline Phosphatase Lactate Dehydrogenase 365 H C-Reactive Protein Globulin Albumin/Globulin Ratio 0.9 L Triglycerides 481 H Urine Protein Urine Glucose (UA) 04/28/20 04/28/20 04/28/20 16:35 10:33 10:33 WBC 28.4 H RBC 3.91 L Hgb 11.7 L Hct 34.7 L POC Hct 35.0 L MPV 10.6 H Gran % 94.0 H Lymph % (Auto) 1.9 L Gran # 26.75 H Lymph # (Auto) 0.54 L [place] # (Auto) 1.01 H Seg Neutrophils % Band Neutrophils % Lymphocytes % VBG Lactic Acid Chloride Carbon Dioxide POC Total CO2 21 L Anion Gap POC BUN 37 H BUN Creatinine POC Creatinine 2.4 H Glucose POC Glucose 300 H POC WB Ioniz Calcium 1.09 L Phosphorus GGT Alkaline Phosphatase Lactate Dehydrogenase C-Reactive Protein Globulin Albumin/Globulin Ratio Triglycerides Urine Protein 30 A Urine Glucose (UA) >=500 A 11/13/19 11/13/19 11/13/19 10:32 10:32 10:32 WBC RBC Hgb Hct POC Hct MPV Gran % Lymph % (Auto) Gran # Lymph # (Auto) [place] # (Auto) Seg Neutrophils % Band Neutrophils % Lymphocytes % VBG Lactic Acid 3.9 H Chloride 95 L Carbon Dioxide 17 L POC Total CO2 Anion Gap 22.0 H POC BUN BUN 41 H Creatinine 2.1 H POC Creatinine Glucose 305 H POC Glucose POC WB Ioniz Calcium Phosphorus GGT Alkaline Phosphatase 36 L Lactate Dehydrogenase C-Reactive Protein 7.2 H Globulin Albumin/Globulin Ratio Triglycerides Urine Protein Urine Glucose (UA) Meds: Medications Acetaminophen (Tylenol) 650 mg PO Q4-6HP PRN; Protocol PRN Reason: Per Pain Protocol/Fever > 101 Last Admin: 11/15/19 14:19 Dose: 650 mg Documented by: Al Hydrox/Mg Hydrox/Simethicone (Maalox) 30 ml PO Q6HP PRN PRN Reason: Dyspepsia Bisacodyl (Dulcolax) 10 mg NE Q2-3DAYS PRN PRN Reason: Constipation Calcium Carbonate/Glycine (Tums) 500 mg CHEWED Q4HP PRN PRN Reason: Dyspepsia Last Admin: 11/16/19 02:56 Dose: 500 mg Documented by: Cefazolin Sodium (Ancef) 2 gm IV Q8H KEKE Last Admin: 11/16/19 05:35 Dose: 2 gm Documented by: Cyanocobalamin (Vitamin B-12) 1,000 mcg PO BID [facility] Stop: 11/17/19 09:01 Last Admin: 11/15/19 21:40 Dose: 1,000 mcg Documented by: Dextrose (Dextrose 50%) 0 ml IV UD PRN PRN Reason: Hypoglycemia Diagnostic Test (Pha) (Accu-Chek) 1 each FS ACHS [facility] Last Admin: 11/15/19 21:14 Dose: 1 each Documented by: Docusate Sodium (Colace) 100 mg PO BID [facility] Last Admin: 11/15/19 21:39 Dose: Not Given Documented by: Fenofibrate (Antara) 43 mg PO HS [facility] Last Admin: 11/15/19 21:16 Dose: 43 mg Documented by: Folic Acid (Folic Acid) 1 mg PO DAILY [facility] Glucose (Insta-Glucose) 15 gm PO PRN PRN PRN Reason: Hypoglycemia Heparin Sodium (Porcine) (Heparin) 5,000 unit SQ Q12 [facility] Last Admin: 11/15/19 21:16 Dose: 5,000 unit Documented by: Hydralazine HCl (Apresoline) 0 mg IV Q2HP PRN PRN Reason: Hypertension Potassium Chloride 40 meq/ (Dextrose) 520 mls @ 130 mls/hr IV UD PRN PRN Reason: K+ = or < 3.5 Magnesium Sulfate (Magnesium Sulfate) 2 gm in 50 mls @ 50 mls/hr IV UD PRN PRN Reason: MG = or < 1.7 Sodium Chloride (Sodium Chloride 0.9%) 1,000 mls @ 100 mls/hr IV .Q10H [facility] Last Admin: 11/15/19 21:43 Dose: 100 mls/hr Documented by: Acetaminophen (Ofirmev) 650 mg in 65 mls @ 130 mls/hr IV Q6HP PRN; Protocol PRN Reason: Per Pain Protocol/Fever > 101 Insulin Human Lispro (Humalog) 0 unit SQ ACHS [facility]; Protocol Last Admin: 11/15/19 21:15 Dose: 3 unit Documented by: Iron Carb/Multivit/Concho/Folic Acid (Multivitamin W/Minerals) 1 tab PO DAILY [facility] Levothyroxine Sodium (Synthroid) 100 mcg PO ACB KEKE Levothyroxine Sodium (Synthroid) 75 mcg PO ACB KEKE Loperamide HCl (Imodium) 2 mg PO DAILYP PRN PRN Reason: Diarrhea Last Admin: 11/16/19 06:05 Dose: 2 mg Documented by: Losartan Potassium (Cozaar) 50 mg PO QAM [facility] Melatonin (Melatonin 3mg Tablet) 3 mg PO HSP PRN PRN Reason: Insomnia Last Admin: 11/15/19 21:40 Dose: 3 mg Documented by: Metformin HCl (Glucophage) 1,000 mg PO BIDCC [facility] Last Admin: 11/15/19 17:25 Dose: 1,000 mg Documented by: Ondansetron HCl (Zofran Odt) 4 mg SL Q4-6HP PRN; Protocol PRN Reason: Nausea And Vomiting Ondansetron HCl (Zofran) 4 mg IV Q4-6HP PRN; Protocol PRN Reason: Nausea And Vomiting Last Admin: 11/16/19 02:56 Dose: 4 mg Documented by: Oxycodone HCl (Roxicodone) 5 - 10 mg PO Q4HP PRN; Protocol PRN Reason: Per Pain Protocol Oxycodone/Acetaminophen (Percocet 5-325 Mg) 1 tab PO Q6H [facility]; Protocol Last Admin: 11/16/19 05:33 Dose: 1 tab Documented by: Empagliflozin [ Jardiance] 25 Mg Tablet 1 dose PO [facility] Last Admin: 11/15/19 21:16 Dose: 1 dose Documented by: Potassium Chloride (Klor-Con) 40 meq PO DAILYP PRN PRN Reason: K+ < 3.5 Potassium/Phosphorus/Sodium (Neutra Phos) 2 packet PO BIDP PRN PRN Reason: Phosphorus less than 2.6 Last Admin: 11/15/19 11:00 Dose: 2 packet Documented by: Pregabalin (Lyrica) 400 mg PO DAILY [facility] Pregabalin (Lyrica) 200 mg PO [facility] Last Admin: 11/15/19 21:39 Dose: 200 mg Documented by: Sodium Chloride (Saline Flush) 10 ml IV Q8 [facility] Last Admin: 11/16/19 07:01 Dose: Not Given Documented by: Thiamine HCl (Vitamin B1) 100 mg PO DAILY [facility] Medical - PN: A/P - Time Spent With Patient Total time spent is greater than 50% in coordination of care (as documented) at patient's floor/unit and/or counseling patient: - Narrative A/P Narrative: A: *Septic shock: 2/2 MSSA Bacteremia -off vasopressors -leukocytosis improving *MSSA Bacteremia: -echo no vegetations on TTE -MRI foot pending *Right Foot Cellulitis: *KEN: 2/2 sepsis endorgan dysfunction. Improved *AMS: 2/2 sepsis endorgan dysfunction. Clinically improved *DM II w/neuropathy: *Morbid obesity with BMI over 39: *HTN: *Degenerative joint disease: continue home dose opioids *Hypothyroidism: on thyroxine at home *Hypophos: replete Plan -pending Surveillance cultures -ID following, cefazolin -avoid nephrotoxins -continue CCD/metformin/home medications, SSI -Restart home ARB, cont home hctz, lasix today, d/c IVF's -PT OT nutrition support -ppx: Heparin
[2019-11-16 07:35] LABS: Band Neutrophils % 1 % (0-10); Eosinophils % (Manual) 5 % (0-7); Lymphocytes % 4 % (15-49); Monocytes % (Manual) 9 % (1-12); Platelet Estimate NORMAL (NORMAL); RBC Morphology NORMAL (NORMAL); Segmented Neutrophils % 81 % (38-78)
[2019-11-16] MEDS: INSULIN LISPRO 1 UNIT/0.01 ML UNIT SQ SCH ×4 (07:47→20:52)
[2019-11-16] MEDS: LEVOTHYROXINE 100 MCG TABLET PO SCH (07:47)
[2019-11-16] MEDS: LEVOTHYROXINE 75 MCG TABLET PO SCH (07:48)
[2019-11-16] MEDS: metFORMIN 500 MG TABLET PO SCH ×2 (07:51→16:45)
[2019-11-16] MEDS: 0.9 % SODIUM CHLORIDE 1,000 ML IV SCH (08:10)
[2019-11-16] MEDS ORDERED: HYDROCHLOROTHIAZIDE 25 MG TABLET PO ONE (08:14)
[2019-11-16] MEDS ORDERED: FUROSEMIDE 20 MG/2 ML VIAL IV ONE (08:14)
[2019-11-16] MEDS: MUPIROCIN OINT 2% 22GM TOPICAL SCH (08:45)
[2019-11-16] MEDS: PHOSPHORUS 250 MG TABLET PO SCH ×2 (09:15→20:54)
[2019-11-16] MEDS: PREGABALIN 100 MG CAPSULE PO SCH ×2 (09:16→20:54)
[2019-11-16] MEDS: THIAMINE 100 MG TABLET PO SCH (09:17)
[2019-11-16] MEDS: FOLIC ACID 1 MG TABLET PO SCH (09:17)
[2019-11-16] MEDS: LOSARTAN 50 MG TABLET PO SCH (09:17)
[2019-11-16] MEDS: MULTIVIT,THER IRON,CA,FA & MIN 1 TABLET PO SCH (09:17)
[2019-11-16] MEDS: HEPARIN 5,000 UNIT/ML VIAL SQ SCH ×2 (09:18→20:53)
[2019-11-16] MEDS: CYANOCOBALAMIN (VITAMIN B-12) 500 MCG TABLET PO SCH ×2 (09:18→20:54)
[2019-11-16] MEDS: DOCUSATE SODIUM 100 MG CAPSULE PO SCH ×2 (09:18→20:50)
--- NOTE | 2019-11-16 09:48 | General Surgery Progress Note ---
Subjective Patient reports: feels better, tolerating a regular diet, voiding w/o difficulty, bowel movement (LOOKS AND FEELS BETTER. SITTING UP IN BED. Normal conversation. Recalls his pet dog licking his feet and legs at home, before onset of current symptoms and problems. Was weight bearing on feet after surgery. ) Narrative: Note initiated : 11/16/19 at 9:45 am Service Date, if different from initiated Date: [] Patient: Ahmet Zelaya 39 y/o M admitted on 11/13/19 for severe abdominal pain, hypotension. Chief Complaint: [] Objective Temp Pulse Resp BP Pulse Ox 98.6 F 96 H 22 138/65 95 11/16/19 07:19 11/16/19 07:19 11/16/19 07:19 11/16/19 07:19 11/16/19 07:19 AVSS HD stable, NSR, O2 sats N. No acute changes KIKA. L/E RIGHT foot post surgical changes Right foot, ankle and lower leg. Edema, Erythema, Warmth, early blister over great toe, Resolving dermatitis RIGHT leg. LEFT foot Chronic edema and plantar callosity under 1st toe. Charcot's arthropathy and neuropathy changes Stage 2 pressure ulcer under great toe callus. Fungal dermatitis of feet and in between toes reed. RIGHT foot Onychomycosis both feet. - Additional Data Intake & Output - Last 24 hours: Intake & Output 11/14/19 11/15/19 11/16/19 11/17/19 05:59 05:59 05:59 05:59 Intake Total 7172 8049 5758 1784 Output Total 2930 6619 8688 2124 Balance 1244 360 995 -345 Weight 339 lb 6.4 oz 341 lb 342 lb 1.6 oz - Labs 11/16/19 04:50 11/16/19 04:50 Diabetes panel 11/16/19 Range/Units 04:50 Sodium 139 (133-145) mmol/L Potassium 3.9 (3.3-5.1) mmol/L Chloride 99 (96-108) mmol/L Carbon Dioxide 20 L (22-30) mmol/L BUN 11 (6-20) mg/dl Creatinine 0.7 (0.7-1.2) mg/dl Glucose 151 H (70-105) mg/dL Calcium 8.9 (8.6-10.4) mg/dl AST 12 (0-37) U/l ALT 26 (0-40) U/l Alkaline Phosphatase 67 (39-117) U/L Total Protein 7.6 (5.9-8.4) gm/dL Albumin 3.3 (3.2-5.2) gm/dL Triglycerides 454 H (<150) mg/dl Calcium panel 11/16/19 Range/Units 04:50 Calcium 8.9 (8.6-10.4) mg/dl Phosphorus 1.6 L (2.7-4.5) mg/dL Albumin 3.3 (3.2-5.2) gm/dL Pituitary panel 11/16/19 Range/Units 04:50 Sodium 139 (133-145) mmol/L Potassium 3.9 (3.3-5.1) mmol/L Chloride 99 (96-108) mmol/L Carbon Dioxide 20 L (22-30) mmol/L BUN 11 (6-20) mg/dl Creatinine 0.7 (0.7-1.2) mg/dl Glucose 151 H (70-105) mg/dL Calcium 8.9 (8.6-10.4) mg/dl Adrenal panel 11/16/19 Range/Units 04:50 Sodium 139 (133-145) mmol/L Potassium 3.9 (3.3-5.1) mmol/L Chloride 99 (96-108) mmol/L Carbon Dioxide 20 L (22-30) mmol/L BUN 11 (6-20) mg/dl Creatinine 0.7 (0.7-1.2) mg/dl Glucose 151 H (70-105) mg/dL Calcium 8.9 (8.6-10.4) mg/dl Total Bilirubin 0.6 (0.0-1.0) mg/dL AST 12 (0-37) U/l ALT 26 (0-40) U/l Alkaline Phosphatase 67 (39-117) U/L Total Protein 7.6 (5.9-8.4) gm/dL Albumin 3.3 (3.2-5.2) gm/dL Assessment and Plan (1) Skin and subcutaneous tissue disease Problem details: COMPLICATED SKIN AND SKIN STRUCTURE INFECTION RIGHT AND LEFT FEET AND LEGS. Status: Acute Current Visit: Yes (2) Sepsis Problem details: Diabetes , neuropathy, Charcot Foot surgery RIGHT foot. PET animals at home. Status: Acute Current Visit: Yes (3) Septic shock Status: Acute Current Visit: Yes (4) Uncontrolled diabetes mellitus Status: Acute Current Visit: Yes (5) Wound of foot Status: Chronic Current Visit: Yes - Narrative A/P Narrative: Assessment: CSSSI both feet and lower legs. IMPROVING Septic shock resolved. OFF pressors. Chronic changes associated with Charcot feet. Post surgical changes of RIGHT foot and ankle REVIEWED all lab results thus far. Plan: Skin and wound care as discussed with nurse. NWB on feet at this time. Wheelchair for mobility. NEEDS: Physical Therapy evaluation Case Management evaluation. SPOKE with I.D Dr. Lofton and Hospitalist Dr. Orozco. - Time Spent With Patient Total time spent is greater than 50% in coordination of care (as documented) at patient's floor/unit and/or counseling patient: 25 - 35 minutes
[2019-11-16 13:20] LABS: Amphetamine Screen,Urine NONE DETECTED (NONDETECTED); Barbiturate Screen,Urine NONE DETECTED (NONDETECTED); Benzodiazepines Screen,Urine NONE DETECTED (NONDETECTED); Cannabinoid Screen,Urine NONE DETECTED (NONDETECTED); Cocaine Screen,Urine NONE DETECTED (NONDETECTED); Opiate Screen,Urine NONE DETECTED (NONDETECTED); Oxycodone, Urine Screen SUSPECT POSITIVE (NONDETECTED); Phencyclidine Screen,Urine NONE DETECTED (NONDETECTED)
[2019-11-16] MEDS: ACETAMINOPHEN 325 MG TABLET PO PRN (16:42)
[2019-11-16] MEDS ORDERED: METOPROLOL TARTRATE 5 MG/5 ML VIAL IV ONE (17:54)
[2019-11-16] MEDS: oxyCODONE HCL 5 MG TABLET PO PRN (19:10)
[2019-11-16] MEDS: FENOFIBRATE 43 MG CAPSULE PO SCH (20:53)
[2019-11-16] MEDS: LORazepam 2 MG/ML VIAL IV PRN (22:14)
--- NOTE | 2019-11-17 00:43 | Infectious Disease Prog Note ---
Subjective Patient information: Note initiated : 11/17/19 at 12:41 am Service Date, if different from initiated Date: [] Patient: Ahmet Zelaya 39 y/o M admitted on 11/13/19 for severe abdominal pain, hypotension. Chief Complaint: [] Interval history: Pt doing better. denied fever, chills, n/v. endorses few loose stools, on immodium. denied any joint or back pain. Objective Objective Narrative: ao x 3, in nad no thrush chest cta s1 s2 normal, has 2/6 systolic murmur over left parasternal border bs ++, nttd no joint swelling, tenderness right foot wrapped in dressing - Vital Signs Vital signs: Vital Signs Temp Pulse Pulse Resp BP Pulse Ox 11/16/19 23:54 26 H 11/16/19 23:16 36.8 C 25 H 116/70 91 11/16/19 20:18 22 11/16/19 19:02 36.9 C 94 H 20 109/64 92 11/16/19 18:44 106 H 92 11/16/19 16:33 36.8 C 113 H 20 113/72 95 11/16/19 12:13 36.8 C 96 H 23 H 122/74 93 11/16/19 07:19 37.0 C 96 H 22 138/65 95 11/16/19 07:15 96 11/16/19 06:36 37.0 C 20 118/72 90 11/16/19 06:35 23 H 11/16/19 04:29 16 11/16/19 03:10 36.8 C 20 118/59 92 Intake and Output 11/16/19 11/16/19 11/17/19 13:59 21:59 05:59 Intake Total 2528 1490 Output Total 4325 2950 600 Balance -1797 -1460 -600 Intake: Nourishment/Supplement quantity 240 (ml) IV 1098 Sodium Chloride 0.9% 1,000 ml @ 1048 100 mls/hr IV .Q10H [facility] Rx#: [id number] Oral 1190 1490 Output: Urine Catheter Amount 750 Void Amount 4100 2200 600 Stool 225 Other: Meal Breakfast Dinner Percent of Meal Consumed 100% 75% Feeding Ability Independent Independent Nourishment/Supplement name Blair Urine Appearance Clear Clear Clear Urine Color Pale Dark Yellow Dark Yellow Urine Odor Normal Normal Stool Color Green Stool Consistency Liquid Weight 138.981 kg Patient Weight 11/17/19 05:59 Weight 138.981 kg Intake & Output: Intake & Output 11/16/19 11/16/19 11/17/19 13:59 21:59 05:59 Intake Total 2528 1490 Output Total 4325 2950 600 Balance -1797 -1460 -600 Weight 138.981 kg Intake: Nourishment/Supplement quantity 240 (ml) IV 1098 Sodium Chloride 0.9% 1,000 ml @ 1048 100 mls/hr IV .Q10H [facility] Rx#: [id number] Oral 1190 1490 Output: Urine Catheter Amount 750 Void Amount 4100 2200 600 Stool 225 Other: Meal Breakfast Dinner Percent of Meal Consumed 100% 75% Feeding Ability Independent Independent Nourishment/Supplement name Blair Urine Appearance Clear Clear Clear Urine Color Pale Dark Yellow Dark Yellow Urine Odor Normal Normal Stool Color Green Stool Consistency Liquid - Lab 11/17/19 05:00 11/17/19 05:00 Most recent lab results Calcium 8.9 mg/dl (8.6-10.4) 11/16/19 04:50 Phosphorus 1.6 mg/dL (2.7-4.5) L 11/16/19 04:50 Magnesium 1.7 mg/dL (1.6-2.5) 11/16/19 04:50 Microbiology 11/15/19 08:09 Blood Blood Culture - Preliminary Gram positive cocci 11/14/19 11:27 Blood Blood Culture - Preliminary Staphylococcus aureus 11/15/19 08:11 Blood Blood Culture - Preliminary Gram positive cocci 11/14/19 11:33 Blood Blood Culture - Final Staphylococcus aureus 11/13/19 11:20 Blood Blood Culture - Final Staphylococcus aureus 11/15/19 09:14 Nasopharynx Respiratory Panel (PCR) - Final 11/15/19 09:14 Nasopharynx Respiratory Virus Panel (PCR) - Final 11/15/19 11:08 Nose - Both Right and Left MRSA (PCR) - Final 11/13/19 11:09 Foot - Left Gram Stain - Final 11/13/19 11:09 Foot - Left Wound Culture - Final Staphylococcus aureus 11/14/19 05:45 Stool C. difficile GDH Antigen & Toxins - Final 11/13/19 11:08 Blood Blood Culture - Preliminary Gram positive cocci Medications Active Medications: Acetaminophen (Tylenol) 650 mg PO Q4-6HP PRN; Protocol PRN Reason: Per Pain Protocol/Fever > 101 Last Admin: 11/16/19 16:42 Dose: 650 mg Documented by: Admin: 11/15/19 14:19 Dose: 650 mg Documented by: ALBERTA Al Hydrox/Mg Hydrox/Simethicone (Maalox) 30 ml PO Q6HP PRN PRN Reason: Dyspepsia Bisacodyl (Dulcolax) 10 mg NM Q2-3DAYS PRN PRN Reason: Constipation Calcium Carbonate/Glycine (Tums) 500 mg CHEWED Q4HP PRN PRN Reason: Dyspepsia Last Admin: 11/16/19 23:19 Dose: 500 mg Documented by: Admin: 11/16/19 11:58 Dose: 500 mg Documented by: Admin: 11/16/19 02:56 Dose: 500 mg Documented by: Admin: 11/15/19 12:47 Dose: 500 mg Documented by: LABERTA Cefazolin Sodium (Ancef) 2 gm IV Q8H [facility] Last Admin: 11/16/19 22:15 Dose: 2 gm Documented by: Admin: 11/16/19 13:51 Dose: 2 gm Documented by: Admin: 11/16/19 05:35 Dose: 2 gm Documented by: Admin: 11/15/19 21:42 Dose: 2 gm Documented by: Admin: 11/15/19 16:08 Dose: 2 gm Documented by: ALBERTA Cyanocobalamin (Vitamin B-12) 1,000 mcg PO BID [facility] Stop: 11/17/19 09:01 Last Admin: 11/16/19 20:54 Dose: 1,000 mcg Documented by: Admin: 11/16/19 09:18 Dose: 1,000 mcg Documented by: Admin: 11/15/19 21:40 Dose: 1,000 mcg Documented by: HILLARY Dextrose (Dextrose 50%) 0 ml IV UD PRN PRN Reason: Hypoglycemia Diagnostic Test (Pha) (Accu-Chek) 1 each FS ACHS [facility] Last Admin: 11/16/19 20:52 Dose: 1 each Documented by: Admin: 11/16/19 16:40 Dose: 1 each Documented by: Admin: 11/16/19 11:40 Dose: 1 each Documented by: Admin: 11/16/19 07:15 Dose: 1 each Documented by: Admin: 11/15/19 21:14 Dose: 1 each Documented by: Admin: 11/15/19 17:15 Dose: 1 each Documented by: ColetteXCatrina Admin: 11/15/19 11:25 Dose: 1 each Documented by: ALBERTA Docusate Sodium (Colace) 100 mg PO BID [facility] Last Admin: 11/16/19 20:50 Dose: Not Given Documented by: HILLARY Non-Admin Reason: Loose Stool Admin: 11/16/19 09:18 Dose: Not Given Documented by: ALBERTA Non-Admin Reason: Loose Stool Admin: 11/15/19 21:39 Dose: Not Given Documented by: HILLARY Non-Admin Reason: Loose Stool Fenofibrate (Antara) 43 mg PO HS [facility] Last Admin: 11/16/19 20:53 Dose: 43 mg Documented by: Admin: 11/15/19 21:16 Dose: 43 mg Documented by: HILLARY Folic Acid (Folic Acid) 1 mg PO DAILY [facility] Last Admin: 11/16/19 09:17 Dose: 1 mg Documented by: ALBERTA Glucose (Insta-Glucose) 15 gm PO PRN PRN PRN Reason: Hypoglycemia Heparin Sodium (Porcine) (Heparin) 5,000 unit SQ Q12 [facility] Last Admin: 11/16/19 20:53 Dose: 5,000 unit Documented by: Admin: 11/16/19 09:18 Dose: 5,000 unit Documented by: Admin: 11/15/19 21:16 Dose: 5,000 unit Documented by: HILLARY Hydralazine HCl (Apresoline) 0 mg IV Q2HP PRN PRN Reason: Hypertension Potassium Chloride 40 meq/ (Dextrose) 520 mls @ 130 mls/hr IV UD PRN PRN Reason: K+ = or < 3.5 Magnesium Sulfate (Magnesium Sulfate) 2 gm in 50 mls @ 50 mls/hr IV UD PRN PRN Reason: MG = or < 1.7 Last Infusion: 11/16/19 09:35 Dose: 0 mls/hr Documented by: Admin: 11/16/19 08:30 Dose: 50 mls/hr Documented by: ALBERTA Acetaminophen (Ofirmev) 650 mg in 65 mls @ 130 mls/hr IV Q6HP PRN; Protocol PRN Reason: Per Pain Protocol/Fever > 101 Insulin Human Lispro (Humalog) 0 unit SQ ACHS [facility]; Protocol Last Admin: 11/16/19 20:52 Dose: 4 unit Documented by: Admin: 11/16/19 16:46 Dose: 1 unit Documented by: Admin: 11/16/19 12:04 Dose: 2 unit Documented by: Admin: 11/16/19 07:47 Dose: 1 unit Documented by: Admin: 11/15/19 21:15 Dose: 3 unit Documented by: Admin: 11/15/19 17:25 Dose: 3 unit Documented by: Admin: 11/15/19 12:10 Dose: 2 unit Documented by: ALBERTA Iron Carb/Multivit/[place]/Folic Acid (Multivitamin W/Minerals) 1 tab PO DAILY [facility] Last Admin: 11/16/19 09:17 Dose: 1 tab Documented by: ALBERTA Levothyroxine Sodium (Synthroid) 100 mcg PO ACB [facility] Last Admin: 11/16/19 07:47 Dose: 100 mcg Documented by: ALBERTA Levothyroxine Sodium (Synthroid) 75 mcg PO ACB [facility] Last Admin: 11/16/19 07:48 Dose: 75 mcg Documented by: ALBERTA Loperamide HCl (Imodium) 2 mg PO DAILYP PRN PRN Reason: Diarrhea Last Admin: 11/16/19 09:17 Dose: 2 mg Documented by: Admin: 11/16/19 06:05 Dose: 2 mg Documented by: [email or web address] Admin: 11/16/19 04:41 Dose: 2 mg Documented by: Admin: 11/15/19 14:19 Dose: 2 mg Documented by: ALBERTA Lorazepam (Ativan) 0.5 mg IV Q6HP PRN PRN Reason: Anxiety Last Admin: 11/16/19 22:14 Dose: 0.5 mg Documented by: HILLARY Losartan Potassium (Cozaar) 50 mg PO QAM [facility] Last Admin: 11/16/19 09:17 Dose: 50 mg Documented by: ALBERTA Melatonin (Melatonin 3mg Tablet) 3 mg PO HSP PRN PRN Reason: Insomnia Last Admin: 11/15/19 21:40 Dose: 3 mg Documented by: HILLARY Metformin HCl (Glucophage) 1,000 mg PO BIDCC [facility] Last Admin: 11/16/19 16:45 Dose: 1,000 mg Documented by: Admin: 11/16/19 07:51 Dose: 1,000 mg Documented by: Admin: 11/15/19 17:25 Dose: 1,000 mg Documented by: ALBERTA Mupirocin (Bactroban Oint 2%) 1 dose TOPICAL DAILY [facility] Last Admin: 11/16/19 08:45 Dose: 1 dose Documented by: ALBERTA Ondansetron HCl (Zofran Odt) 4 mg SL Q4-6HP PRN; Protocol PRN Reason: Nausea And Vomiting Ondansetron HCl (Zofran) 4 mg IV Q4-6HP PRN; Protocol PRN Reason: Nausea And Vomiting Last Admin: 11/16/19 02:56 Dose: 4 mg Documented by: Admin: 11/15/19 21:32 Dose: 4 mg Documented by: HILLARY Oxycodone HCl (Roxicodone) 10 - 20 mg PO Q4-6HP PRN; Protocol PRN Reason: Per Pain Protocol Last Admin: 11/16/19 19:10 Dose: 10 mg Documented by: HILLARY Oxycodone/Acetaminophen (Percocet 5-325 Mg) 1 tab PO Q6H [facility]; Protocol Last Admin: 11/16/19 23:08 Dose: 1 tab Documented by: Admin: 11/16/19 18:09 Dose: 1 tab Documented by: Admin: 11/16/19 11:25 Dose: 1 tab Documented by: Admin: 11/16/19 05:33 Dose: 1 tab Documented by: Admin: 11/16/19 00:16 Dose: 1 tab Documented by: Admin: 11/15/19 18:04 Dose: 1 tab Documented by: Admin: 11/15/19 12:38 Dose: 1 tab Documented by: ALBERTA Empagliflozin [ Jardiance] 25 Mg Tablet 1 dose PO [facility] Last Admin: 11/16/19 20:54 Dose: 1 dose Documented by: Admin: 11/15/19 21:16 Dose: 1 dose Documented by: HILLARY Potassium Chloride (Klor-Con) 40 meq PO DAILYP PRN PRN Reason: K+ < 3.5 Potassium/Phosphorus/Sodium (Neutra Phos) 2 packet PO BIDP PRN PRN Reason: Phosphorus less than 2.6 Last Admin: 11/15/19 11:00 Dose: 2 packet Documented by: ALBERTA Pregabalin (Lyrica) 400 mg PO DAILY [facility] Last Admin: 11/16/19 09:16 Dose: 400 mg Documented by: ALBERTA Pregabalin (Lyrica) 200 mg PO [facility] Last Admin: 11/16/19 20:54 Dose: 200 mg Documented by: Admin: 11/15/19 21:39 Dose: 200 mg Documented by: HILLARY Sodium Chloride (Saline Flush) 10 ml IV Q8 [facility] Last Admin: 11/16/19 22:15 Dose: 10 ml Documented by: Admin: 11/16/19 13:52 Dose: 10 ml Documented by: Admin: 11/16/19 10:15 Dose: 10 ml Documented by: Admin: 11/16/19 07:01 Dose: Not Given Documented by: ALBERTA Non-Admin Reason: Continuous IV Admin: 11/15/19 22:00 Dose: Not Given Documented by: HILLARY Non-Admin Reason: Continuous IV Admin: 11/15/19 14:21 Dose: 10 ml Documented by: Admin: 11/15/19 14:10 Dose: 10 ml Documented by: ALBERTA Thiamine HCl (Vitamin B1) 100 mg PO DAILY [facility] Last Admin: 11/16/19 09:17 Dose: 100 mg Documented by: ALBERTA Assessment and Plan - Narrative A/P Narrative: Late night entry for 11/16/2019 visit A: 1. Complicated MSSA bacteremia: has multiple positive blood cultures since 11/12 -Likely sources is scabbed wounds over his extremities, of which 1 grew MSSA as well -Septic shock secondary to bacteremia: now resolved 2. Type 2 diabetes with peripheral neuropathy 3. IBS/gastroparesis Recommendations: await COVID-19 testing. Continue IV cefazolin 2 g every 8 hours - A PICC line could be placed once patient has negative blood cultures for 48 hours - repeat blood Cx today - leg elevation, wt offloading and wound care. Dr Manuel on board will follow Maulik Lofton MD Infectious disease
[2019-11-17] MEDS: oxyCODONE HCL 5 MG TABLET PO PRN ×5 (03:13→20:08)
[2019-11-17] MEDS: ceFAZolin 1 GM VIAL IV SCH ×3 (05:07→22:23)
[2019-11-17] MEDS: oxyCODONE/APAP 5/325MG TABLET PO SCH ×3 (05:13→17:32)
[2019-11-17] MEDS: 0.9 % SODIUM CHLORIDE 10 ML SYRINGE IV SCH ×3 (05:14→22:24)
[2019-11-17 06:10] LABS: Basophils # (Auto) 0.06 K/mcL (0.00-0.30); Basophils % (Auto) 0.5 % (0.0-2.0); Eosinophils # (Auto) 0.26 K/mcL (0.00-0.70); Eosinophils % (Auto) 2.2 % (0.0-7.0); Granulocytes % (Auto) 78.8 % (38.0-78.0); Hematocrit 33.3 % (40.1-51.0); Hemoglobin 10.7 g/dL (13.7-17.5); Lymphocytes # (Auto) 1.01 K/mcL (1.50-4.80); Lymphocytes % (Auto) 8.5 % (15.5-49.0); Mean Corpuscular HGB Conc 32.1 g/dL (31.0-36.0); Mean Platelet Volume 9.8 fL (7.4-10.4); Monocytes # (Auto) 1.19 K/mcL (0.10-0.90); Platelet Count 218 K/mcL (140-440); RBC 3.74 M/mcL (4.63-6.08); Red Cell Distribution Width 14.2 % (11.5-14.5); WBC 11.9 K/mcL (4.50-11.00)
[2019-11-17 06:30] LABS: ALT/SGPT 20 U/l (0-40); AST/SGOT 13 U/l (0-37); Albumin 3.3 gm/dL (3.2-5.2); Albumin/Globulin Ratio 0.8 (1.0-2.3); Alkaline Phosphatase 60 U/L (39-117); Bilirubin,Direct < 0.2 mg/dL (0.0-0.3); Bilirubin,Total 0.6 mg/dL (0.0-1.0); Blood Urea Nitrogen 21 mg/dl (6-20); Calcium 9.1 mg/dl (8.6-10.4); Carbon Dioxide 22 mmol/L (22-30); Chloride 94 mmol/L (96-108); Globulin 4.3 gm/dL (2.2-3.7); Glomerular Filtration Rate 106; Glucose 163 mg/dL (70-105); Lactate Dehydrogenase 200 U/L (94-250); Triglycerides 454 mg/dl (<150); Uric Acid 4.7 mg/dL (2.5-8.0)
[2019-11-17] MEDS: LEVOTHYROXINE 100 MCG TABLET PO SCH (07:30)
[2019-11-17] MEDS: LEVOTHYROXINE 75 MCG TABLET PO SCH (07:30)
--- NOTE | 2019-11-17 07:59 | Internal Med Progress Note ---
Medical - PN: Subj Patient information: Note initiated : 11/17/19 at 7:58 am Service Date, if different from initiated Date: [] Patient: Ahmet Zelaya 39 y/o M admitted on 11/13/19 for severe abdominal pain, hypotension. Chief Complaint: [] Interval history: Mr. Zelaya is a 39 year old M with history of IBS/diabetes and morbid obesity who was in his baseline state of health until roughly 7 days prior to pre sentation started experiencing URI symptoms with stuffy nose and sinus drainage. His 4-year-old son had a recent episode of sore throat his only sick contact he could remember. He was started on Z-Sandeep along with Sudafed however over the next 4 days he started experiencing increasing diarrhea weakness along with yellow-green postnasal drip/sputum. He however denied shaking chills but endorses to low-grade fever. He normally experiences intermittent diarrhea 6-8 episodes a day from his prior IBS and is scheduled to see GI however the frequency of diarrhea along with abdominal pain worsened over the last 48 hours with increasing frequency of stooling. Symptoms are associated loss of appetite/severe weakness. This morning after he got up he became extremely dizzy and was a barely able to move around function. With increasing concerns patient was brought into the ER along with his . Initial work-up was consistent with septic shock with blood pressure mid 40, patient was promptly started on crystalloids, blood cultures were drawn and vasopressors initiated. Patient was started on vancomycin and Zosyn. CT abdomen chest pelvis no evidence of acute process except for cholelithiasis. UA pending. Labs remarkable for white count over 28,000 with bandemia/elevated lactate/acute renal failure. Central line was secured in the ER Hospitalist service was consulted for admission in light of septic shock. On evaluation patient is very anxious and lethargic but was able to endorse history as above. He denies IV drug use. 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 No overnight events. No concerns per staff. No fever chills nausea vomiting. Improved labs and hemodynamics. Off pressors. Improving urine output. Complains of headache. Restart home medications. White count down from 28.4-19,000. 12% bands. No obvious source identified as yet. Cultures negative so far. Creatinine down to 1.1 from 2.4. LFT stable. Blood cultures gram-positive cocci. 11/14-patient clinically improved with white count down to 16.3. Off pressors. Persistent gram-positive bacteremia on surveillance cultures staph aureus. ID consulted. Likely source right foot infection. Patient complains of significant right foot swelling over the last few days and difficulty weightbearing. He also endorses a history of prior foot surgery few years back with hardware in place. MRI ordered. Renal function normalized 2.8. On phosphorus/magnesium replacement as indicated. Improved blood sugars. Complains of heartburn requiring Tums transfer to medical floor with child monitor 11/15 Slept all right. Says his right foot is little more swollen. Usually takes hydrochlorothiazide 25mg at home when he gets edema. Also feels his chronic b ack pain is worsening and he states he takes 10 mg of hydrocodone 4 times a day and and as needed 1 occasionally. Has headaches. 11/16 Slept well again. Feeling better. Right foot less swollen. Leukocytosis/PCT improving. Blood cultures from yesterday are growing positive. Patient describes sleeping a dog at his legs he often looks his wounds, has multiple excoriations bilateral lower extremities. Review of Systems: denies fever/chills/nausea/vomiting/chest or abdominal pain/cough/dyspnea/ diarrhea. Otherwise see above. - Constitutional Vitals: Vital Signs Temp Pulse Resp BP Pulse Ox 98.6 F 100 H 20 125/79 97 11/17/19 07:43 11/17/19 07:43 11/17/19 07:43 11/17/19 07:43 11/17/19 07:43 Period Temp Pulse Resp BP Sys/[place] Pulse Ox Last 24 Hr 98.3 F-98.8 F 94-113 20-30 109-125/64-79 90-97 Intake and Output 11/16/19 11/17/19 11/17/19 21:59 05:59 13:59 Intake Total 1590 540 Output Total 2950 1900 400 Balance -1360 -1360 -400 Weight 138.981 kg Intake & Output: Intake & Output 11/16/19 11/17/19 11/17/19 21:59 05:59 13:59 Intake Total 1590 540 Output Total 2950 1900 400 Balance -1360 -1360 -400 Weight 138.981 kg Intake: Oral 1590 540 Output: Urine Catheter Amount 750 Void Amount 2200 1900 400 Other: Meal Dinner snack Percent of Meal Consumed 75% 100% Feeding Ability Independent Urine Appearance Clear Clear Clear Urine Color Dark Yellow Dark Yellow Dark Yellow Urine Odor Normal Foul # Bowel Movements 0 Exam: General: Alert, Awake, No acute Distress, obese Eyes/N/T: EOMI, Head/Neck: neck supple, CV: RRR, 1/6 SM Pulm: Clear b/l, no wheezing/rhonchi/rales Abd: soft, nontender, +BS x4 Ext: no clubbing/cyanosis, RLE edema 2+ with erythema Neuro: Alert, no focal deficits, moves all extremities, Skin: warm/dry Medical - PN: Obj Da - Labs CBC & Chem 7: 11/17/19 05:00 11/17/19 05:00 Labs: Abnormal Lab Results 11/17/19 11/17/19 11/16/19 05:00 05:00 11:56 WBC 11.9 H RBC 3.74 L Hgb 10.7 L Hct 33.3 L MPV Gran % 78.8 H Lymph % (Auto) 8.5 L Gran # 9.42 H Lymph # (Auto) 1.01 L [place] # (Auto) 1.19 H Seg Neutrophils % Lymphocytes % Chloride 94 L Carbon Dioxide Anion Gap 18.0 H BUN 21 H Glucose 163 H Phosphorus GGT 109 H Globulin 4.3 H Albumin/Globulin Ratio 0.8 L Triglycerides 454 H Ur Oxycodone Screen Suspect positive A 11/16/19 11/16/19 11/15/19 04:50 04:50 05:00 WBC 13.4 H RBC 3.73 L Hgb 10.9 L Hct 33.5 L MPV Gran % Lymph % (Auto) Gran # Lymph # (Auto) [place] # (Auto) Seg Neutrophils % 81 H Lymphocytes % 4 L Chloride Carbon Dioxide 20 L 17 L Anion Gap 20.0 H 20.0 H BUN Glucose 151 H 179 H Phosphorus 1.6 L 1.3 L GGT 124 H 140 H Globulin 4.3 H 4.0 H Albumin/Globulin Ratio 0.8 L 0.8 L Triglycerides 454 H 522 H Ur Oxycodone Screen 11/15/19 05:00 WBC 16.3 H RBC 3.52 L Hgb 10.2 L Hct 31.6 L MPV 10.5 H Gran % Lymph % (Auto) Gran # Lymph # (Auto) [place] # (Auto) Seg Neutrophils % 92 H Lymphocytes % 3 L Chloride Carbon Dioxide Anion Gap BUN Glucose Phosphorus GGT Globulin Albumin/Globulin Ratio Triglycerides Ur Oxycodone Screen Meds: Medications Acetaminophen (Tylenol) 650 mg PO Q4-6HP PRN; Protocol PRN Reason: Per Pain Protocol/Fever > 101 Last Admin: 11/16/19 16:42 Dose: 650 mg Documented by: Al Hydrox/Mg Hydrox/Simethicone (Maalox) 30 ml PO Q6HP PRN PRN Reason: Dyspepsia Bisacodyl (Dulcolax) 10 mg AL Q2-3DAYS PRN PRN Reason: Constipation Calcium Carbonate/Glycine (Tums) 500 mg CHEWED Q4HP PRN PRN Reason: Dyspepsia Last Admin: 11/16/19 23:19 Dose: 500 mg Documented by: Cefazolin Sodium (Ancef) 2 gm IV Q8H [facility] Last Admin: 11/17/19 05:07 Dose: 2 gm Documented by: Cyanocobalamin (Vitamin B-12) 1,000 mcg PO BID [facility] Stop: 11/17/19 09:01 Last Admin: 11/16/19 20:54 Dose: 1,000 mcg Documented by: Dextrose (Dextrose 50%) 0 ml IV UD PRN PRN Reason: Hypoglycemia Diagnostic Test (Pha) (Accu-Chek) 1 each FS ACHS [facility] Last Admin: 11/17/19 07:30 Dose: 1 each Documented by: Docusate Sodium (Colace) 100 mg PO BID [facility] Last Admin: 11/16/19 20:50 Dose: Not Given Documented by: Fenofibrate (Antara) 43 mg PO HS [facility] Last Admin: 11/16/19 20:53 Dose: 43 mg Documented by: Folic Acid (Folic Acid) 1 mg PO DAILY [facility] Last Admin: 11/16/19 09:17 Dose: 1 mg Documented by: Glucose (Insta-Glucose) 15 gm PO PRN PRN PRN Reason: Hypoglycemia Heparin Sodium (Porcine) (Heparin) 5,000 unit SQ Q12 [facility] Last Admin: 11/16/19 20:53 Dose: 5,000 unit Documented by: Hydralazine HCl (Apresoline) 0 mg IV Q2HP PRN PRN Reason: Hypertension Potassium Chloride 40 meq/ (Dextrose) 520 mls @ 130 mls/hr IV UD PRN PRN Reason: K+ = or < 3.5 Magnesium Sulfate (Magnesium Sulfate) 2 gm in 50 mls @ 50 mls/hr IV UD PRN PRN Reason: MG = or < 1.7 Last Infusion: 11/16/19 09:35 Dose: Infused Documented by: Acetaminophen (Ofirmev) 650 mg in 65 mls @ 130 mls/hr IV Q6HP PRN; Protocol PRN Reason: Per Pain Protocol/Fever > 101 Insulin Human Lispro (Humalog) 0 unit SQ ACHS [facility]; Protocol Last Admin: 11/16/19 20:52 Dose: 4 unit Documented by: Iron Carb/Multivit/[place]/Folic Acid (Multivitamin W/Minerals) 1 tab PO DAILY [facility] Last Admin: 11/16/19 09:17 Dose: 1 tab Documented by: Levothyroxine Sodium (Synthroid) 100 mcg PO ACB [facility] Last Admin: 11/17/19 07:30 Dose: 100 mcg Documented by: Levothyroxine Sodium (Synthroid) 75 mcg PO ACB [facility] Last Admin: 11/17/19 07:30 Dose: 75 mcg Documented by: Loperamide HCl (Imodium) 2 mg PO DAILYP PRN PRN Reason: Diarrhea Last Admin: 11/16/19 09:17 Dose: 2 mg Documented by: Lorazepam (Ativan) 0.5 mg IV Q6HP PRN PRN Reason: Anxiety Last Admin: 11/16/19 22:14 Dose: 0.5 mg Documented by: Losartan Potassium (Cozaar) 50 mg PO QAM [facility] Last Admin: 11/16/19 09:17 Dose: 50 mg Documented by: Melatonin (Melatonin 3mg Tablet) 3 mg PO HSP PRN PRN Reason: Insomnia Last Admin: 11/15/19 21:40 Dose: 3 mg Documented by: Metformin HCl (Glucophage) 1,000 mg PO BIDCC [facility] Last Admin: 11/16/19 16:45 Dose: 1,000 mg Documented by: Mupirocin (Bactroban Oint 2%) 1 dose TOPICAL DAILY [facility] Last Admin: 11/16/19 08:45 Dose: 1 dose Documented by: Ondansetron HCl (Zofran Odt) 4 mg SL Q4-6HP PRN; Protocol PRN Reason: Nausea And Vomiting Ondansetron HCl (Zofran) 4 mg IV Q4-6HP PRN; Protocol PRN Reason: Nausea And Vomiting Last Admin: 11/16/19 02:56 Dose: 4 mg Documented by: Oxycodone HCl (Roxicodone) 10 - 20 mg PO Q4-6HP PRN; Protocol PRN Reason: Per Pain Protocol Last Admin: 11/17/19 03:13 Dose: 20 mg Documented by: Oxycodone/Acetaminophen (Percocet 5-325 Mg) 1 tab PO Q6H [facility]; Protocol Last Admin: 11/17/19 05:13 Dose: 1 tab Documented by: Empagliflozin [ Jardiance] 25 Mg Tablet 1 dose PO [facility] Last Admin: 11/16/19 20:54 Dose: 1 dose Documented by: Potassium Chloride (Klor-Con) 40 meq PO DAILYP PRN PRN Reason: K+ < 3.5 Potassium/Phosphorus/Sodium (Neutra Phos) 2 packet PO BIDP PRN PRN Reason: Phosphorus less than 2.6 Last Admin: 11/15/19 11:00 Dose: 2 packet Documented by: Pregabalin (Lyrica) 400 mg PO DAILY [facility] Last Admin: 11/16/19 09:16 Dose: 400 mg Documented by: Pregabalin (Lyrica) 200 mg PO [facility] Last Admin: 11/16/19 20:54 Dose: 200 mg Documented by: Sodium Chloride (Saline Flush) 10 ml IV Q8 [facility] Last Admin: 11/17/19 05:14 Dose: 10 ml Documented by: Thiamine HCl (Vitamin B1) 100 mg PO DAILY [facility] Last Admin: 11/16/19 09:17 Dose: 100 mg Documented by: Medical - PN: A/P - Time Spent With Patient Total time spent is greater than 50% in coordination of care (as documented) at patient's floor/unit and/or counseling patient: - Narrative A/P Narrative: A: *Septic shock: 2/2 MSSA Bacteremia -off vasopressors -leukocytosis improving *MSSA Bacteremia: source likely LE wounds -echo no vegetations on TTE -MRI foot pending *Right Foot Cellulitis: *KEN: 2/2 sepsis endorgan dysfunction. Improved *AMS: 2/2 sepsis endorgan dysfunction. Clinically improved *DM II w/neuropathy: *Morbid obesity: *HTN: *Degenerative joint disease: continue home dose opioids *Hypothyroidism: on thyroxine at home *Hypophos: replete Plan -pending Surveillance cultures -ID following, cefazolin -Dr. Manuel for wound care -avoid nephrotoxins -continue CCD/metformin/home medications, SSI -Restart home ARB, cont home hctz -PT OT nutrition support -ppx: Heparin
[2019-11-17] MEDS: INSULIN LISPRO 1 UNIT/0.01 ML UNIT SQ SCH ×4 (08:00→22:21)
[2019-11-17] MEDS: metFORMIN 500 MG TABLET PO SCH ×2 (08:00→17:15)
[2019-11-17] MEDS: CYANOCOBALAMIN (VITAMIN B-12) 500 MCG TABLET PO SCH (09:29)
[2019-11-17] MEDS: THIAMINE 100 MG TABLET PO SCH (09:29)
[2019-11-17] MEDS: MULTIVIT,THER IRON,CA,FA & MIN 1 TABLET PO SCH (09:29)
[2019-11-17] MEDS: FOLIC ACID 1 MG TABLET PO SCH (09:29)
[2019-11-17] MEDS: HEPARIN 5,000 UNIT/ML VIAL SQ SCH ×2 (09:30→22:22)
[2019-11-17] MEDS: DOCUSATE SODIUM 100 MG CAPSULE PO SCH ×2 (09:30→22:24)
[2019-11-17] MEDS: MUPIROCIN OINT 2% 22GM TOPICAL SCH (09:30)
[2019-11-17] MEDS: LOSARTAN 50 MG TABLET PO SCH (09:30)
[2019-11-17] MEDS ORDERED: HYDROCHLOROTHIAZIDE 25 MG TABLET PO ONE (09:48)
[2019-11-17] MEDS: PREGABALIN 100 MG CAPSULE PO SCH ×2 (09:51→22:23)
--- NOTE | 2019-11-17 10:37 | Event Note ---
Chart reviewed. Blood Cx from 11/16/19 positive for GPC in clusters, likely to be MSSA. Pt meets 1 major and 1 minor of modified Arce criteria ----> possible IE A/P: Complicated MSSA bacteremia Rt foot skin and soft tissue infection - continue IV cefazolin 2 gm q8hrs - repeat blood Cx today - do not place PICC line unless blood Cx are negative for 48 hrs. - will schedule for outpatient [facility] (if feasible), otherwise TTE - MRI of T/L/S spine Maulik Lofton MD Infectious diseases
[2019-11-17] MEDS: ACETAMINOPHEN 325 MG TABLET PO PRN (11:01)
[2019-11-17] MEDS: LORazepam 2 MG/ML VIAL IV PRN (22:22)
[2019-11-17] MEDS: FENOFIBRATE 43 MG CAPSULE PO SCH (22:23)
[2019-11-18] MEDS: oxyCODONE/APAP 5/325MG TABLET PO SCH ×4 (00:05→17:59)
[2019-11-18] MEDS: oxyCODONE HCL 5 MG TABLET PO PRN ×5 (03:55→19:49)
[2019-11-18 07:07] LABS: Blood Urea Nitrogen 22 mg/dl (6-20); Calcium 8.8 mg/dl (8.6-10.4); Carbon Dioxide 23 mmol/L (22-30); Glomerular Filtration Rate 112; Glucose 227 mg/dL (70-105)
[2019-11-18 07:09] LABS: Chloride 94 mmol/L (96-108)
--- NOTE | 2019-11-18 07:24 | Internal Med Progress Note ---
Medical - PN: Subj Patient information: Note initiated : 11/18/19 at 7:22 am Service Date, if different from initiated Date: [] Patient: Ahmet Zelaya 39 y/o M admitted on 11/13/19 for severe abdominal pain, hypotension. Chief Complaint: [] Interval history: Mr. Zelaya is a 39 year old M with history of IBS/diabetes and morbid obesity who was in his baseline state of health until roughly 7 days prior to pre sentation started experiencing URI symptoms with stuffy nose and sinus drainage. His 4-year-old son had a recent episode of sore throat his only sick contact he could remember. He was started on Z-Sandeep along with Sudafed however over the next 4 days he started experiencing increasing diarrhea weakness along with yellow-green postnasal drip/sputum. He however denied shaking chills but endorses to low-grade fever. He normally experiences intermittent diarrhea 6-8 episodes a day from his prior IBS and is scheduled to see GI however the frequency of diarrhea along with abdominal pain worsened over the last 48 hours with increasing frequency of stooling. Symptoms are associated loss of appetite/severe weakness. This morning after he got up he became extremely dizzy and was a barely able to move around function. With increasing concerns patient was brought into the ER along with his . Initial work-up was consistent with septic shock with blood pressure mid 40, patient was promptly started on crystalloids, blood cultures were drawn and vasopressors initiated. Patient was started on vancomycin and Zosyn. CT abdomen chest pelvis no evidence of acute process except for cholelithiasis. UA pending. Labs remarkable for white count over 28,000 with bandemia/elevated lactate/acute renal failure. Central line was secured in the ER Hospitalist service was consulted for admission in light of septic shock. On evaluation patient is very anxious and lethargic but was able to endorse history as above. He denies IV drug use. 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 No overnight events. No concerns per staff. No fever chills nausea vomiting. Improved labs and hemodynamics. Off pressors. Improving urine output. Complains of headache. Restart home medications. White count down from 28.4-19,000. 12% bands. No obvious source identified as yet. Cultures negative so far. Creatinine down to 1.1 from 2.4. LFT stable. Blood cultures gram-positive cocci. 11/14-patient clinically improved with white count down to 16.3. Off pressors. Persistent gram-positive bacteremia on surveillance cultures staph aureus. ID consulted. Likely source right foot infection. Patient complains of significant right foot swelling over the last few days and difficulty weightbearing. He also endorses a history of prior foot surgery few years back with hardware in place. MRI ordered. Renal function normalized 2.8. On phosphorus/magnesium replacement as indicated. Improved blood sugars. Complains of heartburn requiring Tums transfer to medical floor with quality assurance monitor chassis 11/15 Slept all right. Says his right foot is little more swollen. Usually takes hydrochlorothiazide 25mg at home when he gets edema. Also feels his chronic b ack pain is worsening and he states he takes 10 mg of hydrocodone 4 times a day and and as needed 1 occasionally. Has headaches. 11/16 Slept well again. Feeling better. Right foot less swollen. Leukocytosis/PCT improving. Blood cultures from yesterday are growing positive. Patient describes sleeping a dog at his legs he often looks his wounds, has multiple excoriations bilateral lower extremities. 11/17 No new complaints overnight events. Right foot less swollen. Blood cultures obtained yesterday, awaiting results. Review of Systems: denies fever/chills/nausea/vomiting/chest or abdominal pain/cough/dyspnea/diarrhea. Otherwise see above. - Constitutional Vitals: Vital Signs Temp Pulse Resp BP Pulse Ox 99.1 F H 92 H 18 124/77 92 11/18/19 03:00 11/18/19 03:00 11/18/19 03:00 11/18/19 03:00 11/18/19 03:00 Period Temp Pulse Resp BP Sys/Bradford Pulse Ox Last 24 Hr 98.6 F-100.0 F 92-110 16-20 99-126/58-79 92-97 Intake and Output 11/17/19 11/18/19 11/18/19 21:59 05:59 13:59 Intake Total 1200 120 Output Total 1874 2049 Balance -675 -1930 Weight 140.205 kg Intake & Output: Intake & Output 11/17/19 11/18/19 11/18/19 21:59 05:59 13:59 Intake Total 1200 120 Output Total 1874 2049 Balance -562 -193 Weight 140.205 kg Intake: Nourishment/Supplement quantity 240 (ml) Oral 960 120 Output: Void Amount 1874 2049 Other: Meal Nourishment/Supplement Percent of Meal Consumed 100% Feeding Ability Independent Nourishment/Supplement name Glucersalma Urine Appearance Clear Clear Urine Color Dark Yellow Straw Urine Odor Normal Normal Exam: General: Alert, Awake, No acute Distress, obese Eyes/N/T: EOMI, Head/Neck: neck supple, CV: RRR, 1/6 SM Pulm: Clear b/l, no wheezing/rhonchi/rales Abd: soft, nontender, +BS x4 Ext: no clubbing/cyanosis, RLE edema 1-2+ with erythema Neuro: Alert, no focal deficits, moves all extremities, Skin: warm/dry Medical - PN: Obj Da - Labs CBC & Chem 7: 11/17/19 05:00 11/18/19 05:10 Labs: Abnormal Lab Results 11/18/19 11/17/19 11/17/19 05:10 05:00 05:00 WBC 11.9 H RBC 3.74 L Hgb 10.7 L Hct 33.3 L Gran % 78.8 H Lymph % (Auto) 8.5 L Gran # 9.42 H Lymph # (Auto) 1.01 L [place] # (Auto) 1.19 H Seg Neutrophils % Lymphocytes % Chloride 94 L 94 L Carbon Dioxide Anion Gap 18.0 H BUN 22 H 21 H Glucose 227 H 163 H Phosphorus GGT 109 H Globulin 4.3 H Albumin/Globulin Ratio 0.8 L Triglycerides 454 H Ur Oxycodone Screen 11/16/19 11/16/19 11/16/19 11:56 04:50 04:50 WBC 13.4 H RBC 3.73 L Hgb 10.9 L Hct 33.5 L Gran % Lymph % (Auto) Gran # Lymph # (Auto) [place] # (Auto) Seg Neutrophils % 81 H Lymphocytes % 4 L Chloride Carbon Dioxide 20 L Anion Gap 20.0 H BUN Glucose 151 H Phosphorus 1.6 L GGT 124 H Globulin 4.3 H Albumin/Globulin Ratio 0.8 L Triglycerides 454 H Ur Oxycodone Screen Suspect positive A 11/15/19 05:00 WBC RBC Hgb Hct Gran % Lymph % (Auto) Gran # Lymph # (Auto) [place] # (Auto) Seg Neutrophils % 92 H Lymphocytes % 3 L Chloride Carbon Dioxide Anion Gap BUN Glucose Phosphorus GGT Globulin Albumin/Globulin Ratio Triglycerides Ur Oxycodone Screen Meds: Medications Acetaminophen (Tylenol) 650 mg PO Q4-6HP PRN; Protocol PRN Reason: Per Pain Protocol/Fever > 101 Last Admin: 11/17/19 11:01 Dose: 650 mg Documented by: Al Hydrox/Mg Hydrox/Simethicone (Maalox) 30 ml PO Q6HP PRN PRN Reason: Dyspepsia Bisacodyl (Dulcolax) 10 mg VT Q2-3DAYS PRN PRN Reason: Constipation Calcium Carbonate/Glycine (Tums) 500 mg CHEWED Q4HP PRN PRN Reason: Dyspepsia Last Admin: 11/16/19 23:19 Dose: 500 mg Documented by: Cefazolin Sodium (Ancef) 2 gm IV Q8H [facility] Last Admin: 11/17/19 22:23 Dose: 2 gm Documented by: Dextrose (Dextrose 50%) 0 ml IV UD PRN PRN Reason: Hypoglycemia Diagnostic Test (Pha) (Accu-Chek) 1 each FS ACHS [facility] Last Admin: 11/17/19 22:21 Dose: 1 each Documented by: Docusate Sodium (Colace) 100 mg PO BID [facility] Last Admin: 11/17/19 22:24 Dose: Not Given Documented by: Fenofibrate (Antara) 43 mg PO HS [facility] Last Admin: 11/17/19 22:23 Dose: 43 mg Documented by: Folic Acid (Folic Acid) 1 mg PO DAILY [facility] Last Admin: 11/17/19 09:29 Dose: 1 mg Documented by: Glucose (Insta-Glucose) 15 gm PO PRN PRN PRN Reason: Hypoglycemia Heparin Sodium (Porcine) (Heparin) 5,000 unit SQ Q12 [facility] Last Admin: 11/17/19 22:22 Dose: 5,000 unit Documented by: Hydralazine HCl (Apresoline) 0 mg IV Q2HP PRN PRN Reason: Hypertension Potassium Chloride 40 meq/ (Dextrose) 520 mls @ 130 mls/hr IV UD PRN PRN Reason: K+ = or < 3.5 Magnesium Sulfate (Magnesium Sulfate) 2 gm in 50 mls @ 50 mls/hr IV UD PRN PRN Reason: MG = or < 1.7 Last Infusion: 11/16/19 09:35 Dose: Infused Documented by: Acetaminophen (Ofirmev) 650 mg in 65 mls @ 130 mls/hr IV Q6HP PRN; Protocol PRN Reason: Per Pain Protocol/Fever > 101 Insulin Human Lispro (Humalog) 0 unit SQ ACHS [facility]; Protocol Last Admin: 11/17/19 22:21 Dose: 4 unit Documented by: Iron Carb/Multivit/[place]/Folic Acid (Multivitamin W/Minerals) 1 tab PO DAILY [facility] Last Admin: 11/17/19 09:29 Dose: 1 tab Documented by: Levothyroxine Sodium (Synthroid) 100 mcg PO ACB [facility] Last Admin: 11/17/19 07:30 Dose: 100 mcg Documented by: Levothyroxine Sodium (Synthroid) 75 mcg PO ACB [facility] Last Admin: 11/17/19 07:30 Dose: 75 mcg Documented by: Loperamide HCl (Imodium) 2 mg PO DAILYP PRN PRN Reason: Diarrhea Last Admin: 11/16/19 09:17 Dose: 2 mg Documented by: Lorazepam (Ativan) 0.5 mg IV Q6HP PRN PRN Reason: Anxiety Last Admin: 11/17/19 22:22 Dose: 0.5 mg Documented by: Losartan Potassium (Cozaar) 50 mg PO QAM [facility] Last Admin: 11/17/19 09:30 Dose: 50 mg Documented by: Melatonin (Melatonin 3mg Tablet) 3 mg PO HSP PRN PRN Reason: Insomnia Last Admin: 11/15/19 21:40 Dose: 3 mg Documented by: Metformin HCl (Glucophage) 1,000 mg PO BIDCC [facility] Last Admin: 11/17/19 17:15 Dose: 1,000 mg Documented by: Mupirocin (Bactroban Oint 2%) 1 dose TOPICAL DAILY [facility] Last Admin: 11/17/19 09:30 Dose: 1 dose Documented by: Ondansetron HCl (Zofran Odt) 4 mg SL Q4-6HP PRN; Protocol PRN Reason: Nausea And Vomiting Ondansetron HCl (Zofran) 4 mg IV Q4-6HP PRN; Protocol PRN Reason: Nausea And Vomiting Last Admin: 11/16/19 02:56 Dose: 4 mg Documented by: Oxycodone HCl (Roxicodone) 10 - 20 mg PO Q4-6HP PRN; Protocol PRN Reason: Per Pain Protocol Last Admin: 11/18/19 03:55 Dose: 20 mg Documented by: Oxycodone/Acetaminophen (Percocet 5-325 Mg) 1 tab PO Q6H [facility]; Protocol Last Admin: 11/18/19 00:05 Dose: 1 tab Documented by: Empagliflozin [ Jardiance] 25 Mg Tablet 1 dose PO [facility] Last Admin: 11/17/19 22:24 Dose: 1 dose Documented by: Potassium Chloride (Klor-Con) 40 meq PO DAILYP PRN PRN Reason: K+ < 3.5 Potassium/Phosphorus/Sodium (Neutra Phos) 2 packet PO BIDP PRN PRN Reason: Phosphorus less than 2.6 Last Admin: 11/15/19 11:00 Dose: 2 packet Documented by: Pregabalin (Lyrica) 400 mg PO DAILY [facility] Last Admin: 11/17/19 09:51 Dose: 400 mg Documented by: Pregabalin (Lyrica) 200 mg PO [facility] Last Admin: 11/17/19 22:23 Dose: 200 mg Documented by: Sodium Chloride (Saline Flush) 10 ml IV Q8 [facility] Last Admin: 11/17/19 22:24 Dose: 10 ml Documented by: Thiamine HCl (Vitamin B1) 100 mg PO DAILY [facility] Last Admin: 11/17/19 09:29 Dose: 100 mg Documented by: Medical - PN: A/P - Time Spent With Patient Total time spent is greater than 50% in coordination of care (as documented) at patient's floor/unit and/or counseling patient: - Narrative A/P Narrative: A: *Septic shock: 2/2 MSSA Bacteremia -off vasopressors -leukocytosis improved *MSSA Bacteremia: source likely LE wounds -echo no vegetations on TTE -MRI foot pending *Right Foot Cellulitis: *KEN: 2/2 sepsis endorgan dysfunction. Improved *AMS: 2/2 sepsis endorgan dysfunction. Clinically improved *DM II w/neuropathy: *Morbid obesity: *HTN: *Degenerative joint disease: continue home dose opioids *Hypothyroidism: on thyroxine at home *Hypophos: replete Plan -pending Surveillance cultures -ID following, cefazolin, likely outpt [facility] -Dr. Manuel for wound care -avoid nephrotoxins -continue CCD/metformin/home medications, SSI -Restart home ARB, -PT OT nutrition support -ppx: Heparin
[2019-11-18] MEDS: LOSARTAN 50 MG TABLET PO SCH (08:09)
[2019-11-18] MEDS: THIAMINE 100 MG TABLET PO SCH (08:09)
[2019-11-18] MEDS: ceFAZolin 1 GM VIAL IV SCH ×3 (08:09→22:15)
[2019-11-18] MEDS: MULTIVIT,THER IRON,CA,FA & MIN 1 TABLET PO SCH (08:09)
[2019-11-18] MEDS: PREGABALIN 100 MG CAPSULE PO SCH ×2 (08:10→21:58)
[2019-11-18] MEDS: metFORMIN 500 MG TABLET PO SCH ×2 (08:10→18:00)
[2019-11-18] MEDS: LEVOTHYROXINE 100 MCG TABLET PO SCH (08:10)
[2019-11-18] MEDS: FOLIC ACID 1 MG TABLET PO SCH (08:10)
[2019-11-18] MEDS: LEVOTHYROXINE 75 MCG TABLET PO SCH (08:10)
[2019-11-18] MEDS: 0.9 % SODIUM CHLORIDE 10 ML SYRINGE IV SCH ×3 (08:12→22:00)
[2019-11-18] MEDS ORDERED: INSULIN GLARGINE, HUMAN 1 UNIT/0.01 ML SQ ONE (08:19)
[2019-11-18] MEDS: INSULIN LISPRO 1 UNIT/0.01 ML UNIT SQ SCH ×4 (08:23→21:58)
[2019-11-18 08:53] LABS: Hemoglobin A1C 7.8 % HGB (4.0-6.0)
[2019-11-18] MEDS: glipiZIDE 5 MG TABLET PO SCH ×2 (09:09→18:00)
[2019-11-18] MEDS: MUPIROCIN OINT 2% 22GM TOPICAL SCH (09:10)
[2019-11-18] MEDS: DOCUSATE SODIUM 100 MG CAPSULE PO SCH ×2 (09:39→21:58)
[2019-11-18] MEDS: HEPARIN 5,000 UNIT/ML VIAL SQ SCH ×2 (09:39→21:59)
[2019-11-18] MEDS: FENOFIBRATE 43 MG CAPSULE PO SCH (21:58)
[2019-11-19] MEDS: oxyCODONE/APAP 5/325MG TABLET PO SCH ×5 (00:09→23:35)
[2019-11-19] MEDS ORDERED: oxyCODONE HCL 5 MG TABLET PO ONE (02:06)
[2019-11-19] MEDS: 0.9 % SODIUM CHLORIDE 10 ML SYRINGE IV SCH ×3 (05:48→20:44)
[2019-11-19] MEDS: ceFAZolin 1 GM VIAL IV SCH ×3 (05:48→22:08)
[2019-11-19] MEDS: oxyCODONE HCL 5 MG TABLET PO PRN ×3 (07:39→19:09)
[2019-11-19] MEDS: LEVOTHYROXINE 100 MCG TABLET PO SCH (07:40)
[2019-11-19] MEDS: FOLIC ACID 1 MG TABLET PO SCH (07:40)
[2019-11-19] MEDS: LEVOTHYROXINE 75 MCG TABLET PO SCH (07:41)
[2019-11-19] MEDS: PREGABALIN 100 MG CAPSULE PO SCH ×2 (07:41→20:43)
[2019-11-19] MEDS: metFORMIN 500 MG TABLET PO SCH ×2 (07:42→18:25)
[2019-11-19] MEDS: MULTIVIT,THER IRON,CA,FA & MIN 1 TABLET PO SCH (07:42)
[2019-11-19] MEDS: THIAMINE 100 MG TABLET PO SCH (07:43)
[2019-11-19] MEDS: DOCUSATE SODIUM 100 MG CAPSULE PO SCH ×2 (07:43→20:43)
[2019-11-19] MEDS: glipiZIDE 5 MG TABLET PO SCH ×2 (07:43→18:24)
--- NOTE | 2019-11-19 07:43 | Internal Med Progress Note ---
Medical - PN: Subj Patient information: Note initiated : 11/19/19 at 7:41 am Service Date, if different from initiated Date: [] Patient: Ahmet Zelaya 39 y/o M admitted on 11/13/19 for severe abdominal pain, hypotension. Chief Complaint: [] Interval history: Mr. Zelaya is a 39 year old M with history of IBS/diabetes and morbid obesity who was in his baseline state of health until roughly 7 days prior to pre sentation started experiencing URI symptoms with stuffy nose and sinus drainage. His 4-year-old son had a recent episode of sore throat his only sick contact he could remember. He was started on Z-Sandeep along with Sudafed however over the next 4 days he started experiencing increasing diarrhea weakness along with yellow-green postnasal drip/sputum. He however denied shaking chills but endorses to low-grade fever. He normally experiences intermittent diarrhea 6-8 episodes a day from his prior IBS and is scheduled to see GI however the frequency of diarrhea along with abdominal pain worsened over the last 48 hours with increasing frequency of stooling. Symptoms are associated loss of appetite/severe weakness. This morning after he got up he became extremely dizzy and was a barely able to move around function. With increasing concerns patient was brought into the ER along with his . Initial work-up was consistent with septic shock with blood pressure mid 40, patient was promptly started on crystalloids, blood cultures were drawn and vasopressors initiated. Patient was started on vancomycin and Zosyn. CT abdomen chest pelvis no evidence of acute process except for cholelithiasis. UA pending. Labs remarkable for white count over 28,000 with bandemia/elevated lactate/acute renal failure. Central line was secured in the ER Hospitalist service was consulted for admission in light of septic shock. On evaluation patient is very anxious and lethargic but was able to endorse history as above. He denies IV drug use. 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 No overnight events. No concerns per staff. No fever chills nausea vomiting. Improved labs and hemodynamics. Off pressors. Improving urine output. Complains of headache. Restart home medications. White count down from 28.4-19,000. 12% bands. No obvious source identified as yet. Cultures negative so far. Creatinine down to 1.1 from 2.4. LFT stable. Blood cultures gram-positive cocci. 11/14-patient clinically improved with white count down to 16.3. Off pressors. Persistent gram-positive bacteremia on surveillance cultures staph aureus. ID consulted. Likely source right foot infection. Patient complains of significant right foot swelling over the last few days and difficulty weightbearing. He also endorses a history of prior foot surgery few years back with hardware in place. MRI ordered. Renal function normalized 2.8. On phosphorus/magnesium replacement as indicated. Improved blood sugars. Complains of heartburn requiring Tums transfer to medical floor with property assessment monitor 11/15 Slept all right. Says his right foot is little more swollen. Usually takes hydrochlorothiazide 25mg at home when he gets edema. Also feels his chronic b ack pain is worsening and he states he takes 10 mg of hydrocodone 4 times a day and and as needed 1 occasionally. Has headaches. 11/16 Slept well again. Feeling better. Right foot less swollen. Leukocytosis/PCT improving. Blood cultures from yesterday are growing positive. Patient describes sleeping a dog at his legs he often looks his wounds, has multiple excoriations bilateral lower extremities. 11/17 No new complaints overnight events. Right foot less swollen. Blood cultures obtained yesterday, awaiting results. 11/18 Feeling well. No overnight events or new complaints. Blood cultures from the second hours still not growing anything. Review of Systems: denies fever/chills/nausea/vomiting/chest or abdominal pain/cough/dyspnea/diarrhea. Otherwise see above. - Constitutional Vitals: Vital Signs Temp Pulse Resp BP Pulse Ox 98.5 F 99 H 18 118/71 93 11/19/19 03:51 11/19/19 03:51 11/19/19 03:51 11/19/19 03:51 11/19/19 03:51 Period Temp Pulse Resp BP Sys/Bradford Pulse Ox Last 24 Hr 96 F-99.2 F 98-109 - 110-121/61-74 92-96 Intake and Output 11/18/19 11/19/19 11/19/19 21:59 05:59 13:59 Intake Total 500 Output Total 400 925 525 Balance -400 -425 -525 Weight 140.251 kg Intake & Output: Intake & Output 11/18/19 11/19/1920 21:59 05:59 13:59 Intake Total 500 Output Total 400 925 525 Balance -400 -824 -355 Weight 140.251 kg Intake: Oral 500 Output: Void Amount 400 925 525 Other: Urine Appearance Clear Urine Color Dark Yellow Exam: General: Alert, Awake, No acute Distress, obese Eyes/N/T: EOMI, Head/Neck: neck supple, CV: RRR, 1/6 SM Pulm: Clear b/l, no wheezing/rhonchi/rales Abd: soft, nontender, +BS x4 Ext: no clubbing/cyanosis, RLE edema 1+ with erythema Neuro: Alert, no focal deficits, moves all extremities, Skin: warm/dry Medical - PN: Obj Da - Labs CBC & Chem 7: 11/17/19 05:00 11/18/19 05:10 Labs: Abnormal Lab Results 11/18/19 11/18/19 11/17/19 05:10 05:10 05:00 WBC 11.9 H RBC 3.74 L Hgb 10.7 L Hct 33.3 L Gran % 78.8 H Lymph % (Auto) 8.5 L Gran # 9.42 H Lymph # (Auto) 1.01 L [place] # (Auto) 1.19 H Chloride 94 L Anion Gap BUN 22 H Glucose 227 H Hemoglobin A1c 7.8 H GGT Globulin Albumin/Globulin Ratio Triglycerides Ur Oxycodone Screen 11/17/19 11/16/19 05:00 11:56 WBC RBC Hgb Hct Gran % Lymph % (Auto) Gran # Lymph # (Auto) [place] # (Auto) Chloride 94 L Anion Gap 18.0 H BUN 21 H Glucose 163 H Hemoglobin A1c GGT 109 H Globulin 4.3 H Albumin/Globulin Ratio 0.8 L Triglycerides 454 H Ur Oxycodone Screen Suspect positive A Meds: Medications Acetaminophen (Tylenol) 650 mg PO Q4-6HP PRN; Protocol PRN Reason: Per Pain Protocol/Fever > 101 Last Admin: 11/17/19 11:01 Dose: 650 mg Documented by: Al Hydrox/Mg Hydrox/Simethicone (Maalox) 30 ml PO Q6HP PRN PRN Reason: Dyspepsia Bisacodyl (Dulcolax) 10 mg ND Q2-3DAYS PRN PRN Reason: Constipation Calcium Carbonate/Glycine (Tums) 500 mg CHEWED Q4HP PRN PRN Reason: Dyspepsia Last Admin: 11/16/19 23:19 Dose: 500 mg Documented by: Cefazolin Sodium (Ancef) 2 gm IV Q8H [facility] Last Admin: 11/19/19 05:48 Dose: 2 gm Documented by: Dextrose (Dextrose 50%) 0 ml IV UD PRN PRN Reason: Hypoglycemia Diagnostic Test (Pha) (Accu-Chek) 1 each FS ACHS [facility] Last Admin: 11/18/19 21:57 Dose: 1 each Documented by: Docusate Sodium (Colace) 100 mg PO BID [facility] Last Admin: 11/18/19 21:58 Dose: 100 mg Documented by: Fenofibrate (Antara) 43 mg PO HS [facility] Last Admin: 11/18/19 21:58 Dose: 43 mg Documented by: Folic Acid (Folic Acid) 1 mg PO DAILY [facility] Last Admin: 11/18/19 08:10 Dose: 1 mg Documented by: Glipizide (Glucotrol) 10 mg PO BIDAC [facility] Last Admin: 11/18/19 18:00 Dose: 10 mg Documented by: Glucose (Insta-Glucose) 15 gm PO PRN PRN PRN Reason: Hypoglycemia Heparin Sodium (Porcine) (Heparin) 5,000 unit SQ Q12 [facility] Last Admin: 11/18/19 21:59 Dose: 5,000 unit Documented by: Hydralazine HCl (Apresoline) 0 mg IV Q2HP PRN PRN Reason: Hypertension Potassium Chloride 40 meq/ (Dextrose) 520 mls @ 130 mls/hr IV UD PRN PRN Reason: K+ = or < 3.5 Magnesium Sulfate (Magnesium Sulfate) 2 gm in 50 mls @ 50 mls/hr IV UD PRN PRN Reason: MG = or < 1.7 Last Infusion: 11/16/19 09:35 Dose: Infused Documented by: Acetaminophen (Ofirmev) 650 mg in 65 mls @ 130 mls/hr IV Q6HP PRN; Protocol PRN Reason: Per Pain Protocol/Fever > 101 Insulin Human Lispro (Humalog) 0 unit SQ ACHS [facility]; Protocol Last Admin: 11/18/19 21:58 Dose: Not Given Documented by: Iron Carb/Multivit/[place]/Folic Acid (Multivitamin W/Minerals) 1 tab PO DAILY [facility] Last Admin: 11/18/19 08:09 Dose: 1 tab Documented by: Levothyroxine Sodium (Synthroid) 100 mcg PO ACB [facility] Last Admin: 11/18/19 08:10 Dose: 100 mcg Documented by: Levothyroxine Sodium (Synthroid) 75 mcg PO ACB [facility] Last Admin: 11/18/19 08:10 Dose: 75 mcg Documented by: Loperamide HCl (Imodium) 2 mg PO DAILYP PRN PRN Reason: Diarrhea Last Admin: 11/16/19 09:17 Dose: 2 mg Documented by: Lorazepam (Ativan) 0.5 mg IV Q6HP PRN PRN Reason: Anxiety Last Admin: 11/17/19 22:22 Dose: 0.5 mg Documented by: Losartan Potassium (Cozaar) 50 mg PO QAM [facility] Melatonin (Melatonin 3mg Tablet) 3 mg PO HSP PRN PRN Reason: Insomnia Last Admin: 11/15/19 21:40 Dose: 3 mg Documented by: Metformin HCl (Glucophage) 1,000 mg PO BIDCC [facility] Last Admin: 11/18/19 18:00 Dose: 1,000 mg Documented by: Mupirocin (Bactroban Oint 2%) 1 dose TOPICAL DAILY [facility] Last Admin: 11/18/19 09:10 Dose: 1 dose Documented by: Ondansetron HCl (Zofran Odt) 4 mg SL Q4-6HP PRN; Protocol PRN Reason: Nausea And Vomiting Ondansetron HCl (Zofran) 4 mg IV Q4-6HP PRN; Protocol PRN Reason: Nausea And Vomiting Last Admin: 11/16/19 02:56 Dose: 4 mg Documented by: Oxycodone HCl (Roxicodone) 10 - 20 mg PO Q4HP PRN; Protocol PRN Reason: Per Pain Protocol Oxycodone/Acetaminophen (Percocet 5-325 Mg) 1 tab PO Q6H [facility]; Protocol Last Admin: 11/19/19 05:48 Dose: 1 tab Documented by: Empagliflozin [ Jardiance] 25 Mg Tablet 1 dose PO HS [facility] Last Admin: 11/18/19 21:58 Dose: 1 dose Documented by: Potassium Chloride (Klor-Con) 40 meq PO DAILYP PRN PRN Reason: K+ < 3.5 Potassium/Phosphorus/Sodium (Neutra Phos) 2 packet PO BIDP PRN PRN Reason: Phosphorus less than 2.6 Last Admin: 11/15/19 11:00 Dose: 2 packet Documented by: Pregabalin (Lyrica) 400 mg PO DAILY [facility] Last Admin: 11/18/19 08:10 Dose: 400 mg Documented by: Pregabalin (Lyrica) 200 mg PO HS [facility] Last Admin: 11/18/19 21:58 Dose: 200 mg Documented by: Sodium Chloride (Saline Flush) 10 ml IV Q8 [facility] Last Admin: 11/19/19 05:48 Dose: 10 ml Documented by: Thiamine HCl (Vitamin B1) 100 mg PO DAILY [facility] Last Admin: 11/18/19 08:09 Dose: 100 mg Documented by: Medical - PN: A/P - Time Spent With Patient Total time spent is greater than 50% in coordination of care (as documented) at patient's floor/unit and/or counseling patient: - Narrative A/P Narrative: A: *Septic shock: 2/2 MSSA Bacteremia -resolved *MSSA Bacteremia: source likely LE wounds -echo no vegetations on TTE *Right Foot Cellulitis: -MRI foot with cellulitis, no osteo *KEN: 2/2 sepsis endorgan dysfunction. Improved *AMS: 2/2 sepsis endorgan dysfunction. Clinically improved *DM II w/neuropathy: *Morbid obesity: *HTN: *Degenerative joint disease: continue home dose opioids *Hypothyroidism: on thyroxine at home *Hypophos: replete *Chronic T/L spine pain: no change Plan -pending Surveillance cultures, 5/2 cultures negative thus far -ID following, cefazolin, likely outpt [facility] -Dr. Manuel for wound care -avoid nephrotoxins -continue CCD/metformin/home medications, SSI -Restart home ARB, -PT OT nutrition support -ppx: Heparin
[2019-11-19] MEDS: MUPIROCIN OINT 2% 22GM TOPICAL SCH (07:44)
[2019-11-19] MEDS: INSULIN LISPRO 1 UNIT/0.01 ML UNIT SQ SCH ×4 (08:07→20:41)
[2019-11-19] MEDS: HEPARIN 5,000 UNIT/ML VIAL SQ SCH ×2 (08:08→20:42)
[2019-11-19] MEDS ORDERED: LOSARTAN 50 MG TABLET PO SCH (09:00)
--- NOTE | 2019-11-19 09:25 | Discharge Summary ---
Medical - DS: Prov Patient information: Note initiated : 11/19/19 at 9:23 am Service Date, if different from initiated Date: [] Patient: Ahmet Zelaya 39 y/o M admitted on 11/13/19 for severe abdominal pain, hypotension. Chief Complaint: [] Date of admission: 11/13/19 14:45 Discharge date: 11/20/19 Primary care physician: GAVI Zelaya Consults: 11/13/19 11:39 Consult to Physician [CONS] Stat Comment: Consulting Provider: Noe Victoria Reason For Exam: Physician to Consult 11/15/19 08:16 Consult to Physician [CONS] Urgent Comment: Consulting Provider: Maulik Lofton Reason For Exam: Physician to Consult 11/15/19 16:00 Consult to Physician [CONS] Routine Comment: Left plantar foot wound Consulting Provider: Dash Manuel Reason For Exam: Physician to Consult Medical - DS: Meds - Discharge Medications Prescriptions: ceFAZolin [Ancef] 2 gm IV Q8H #1 vial Losartan [Cozaar] 25 mg PO QAM #1 tab Active and Home Medications: Home Medications empagliflozin 25 mg tablet 25 mg PO QHS 05/28/16 [History Confirmed 11/14/19 Last Taken 11/12/19] glipizide 10 mg tablet 10 mg PO BID 05/28/16 [History Confirmed 11/14/19 Last Taken 11/12/19] hydrocodone 10 mg-acetaminophen 325 mg tablet 2 tab PO QID PRN tab 05/28/16 [History Confirmed 11/14/19 Last Taken 11/12/19] levothyroxine 175 mcg tablet 175 mcg PO QDAY 05/28/16 [History Confirmed 11/14/19 Last Taken 11/12/19] metformin 1,000 mg tablet 1,000 mg PO BID 05/28/16 [History Confirmed 11/14/19 Last Taken 11/12/19] pregabalin 200 mg capsule 200 mg PO BID cap 05/28/16 [History Confirmed 11/14/19 Last Taken Unknown] oxycodone-acetaminophen 5 mg-325 mg tablet 1 tab PO Q6H #10 tab 02/17/18 [Rx Confirmed 11/14/19 Last Taken 11/12/19] Fenofibrate 54 mg PO QHS 11/14/19 [History Confirmed 11/14/19 Last Taken 11/12/19] Losartan [Cozaar] 50 mg PO QAM 11/14/19 [History Confirmed 11/14/19 Last Taken Unknown] Home Medications empagliflozin 25 mg tablet 25 mg PO QHS 05/28/16 [History Confirmed 11/14/19 Last Taken 11/12/19] glipizide 10 mg tablet 10 mg PO BID 05/28/16 [History Confirmed 11/14/19 Last Taken 11/12/19] hydrocodone 10 mg-acetaminophen 325 mg tablet 2 tab PO QID PRN tab 05/28/16 [History Confirmed 11/14/19 Last Taken 11/12/19] levothyroxine 175 mcg tablet 175 mcg PO QDAY 05/28/16 [History Confirmed 11/14/19 Last Taken 11/12/19] metformin 1,000 mg tablet 1,000 mg PO BID 05/28/16 [History Confirmed 11/14/19 Last Taken 11/12/19] pregabalin 200 mg capsule 200 mg PO BID cap 05/28/16 [History Confirmed 11/14/19 Last Taken Unknown] oxycodone-acetaminophen 5 mg-325 mg tablet 1 tab PO Q6H #10 tab 02/17/18 [Rx Confirmed 11/14/19 Last Taken 11/12/19] RX: Fenofibrate 54 mg PO QHS 11/14/19 [History Confirmed 11/14/19 Last Taken 11/12/19] RX: Losartan [Cozaar] 25 mg PO QAM #1 tablet 11/19/19 [Rx Last Taken Unknown] RX: ceFAZolin [Ancef] 2 gm IV Q8H #1 vial 11/19/19 [Rx Last Taken Unknown] Medical - DS: Hosp Hospital Course: Mr. Zelaya is a 39 year old M with history of IBS/diabetes and morbid obesity who was in his baseline state of health until roughly 7 days prior to presentation started experiencing URI symptoms with stuffy nose and sinus drainage. His 4-year-old son had a recent episode of sore throat his only sick contact he could remember. He was started on Z-Sandeep along with Sudafed however over the next 4 days he started experiencing increasing diarrhea weakness along with yellow-green postnasal drip/sputum. He however denied shaking chills but endorses to low-grade fever. He normally experiences intermittent diarrhea 6-8 episodes a day from his prior IBS and is scheduled to see GI however the frequency of diarrhea along with abdominal pain worsened over the last 48 hours with increasing frequency of stooling. Symptoms are associated loss of appetite/severe weakness. This morning after he got up he became extremely dizzy and was a barely able to move around function. With increasing concerns patient was brought into the ER along with his . Initial work-up was consistent with septic shock with blood pressure mid 40, patient was promptly started on crystalloids, blood cultures were drawn and vasopressors initiated. Patient was started on vancomycin and Zosyn. CT abdomen chest pelvis no evidence of acute process except for cholelithiasis. UA pending. Labs remarkable for white count over 28,000 with bandemia/elevated lactate/acute renal failure. Central line was secured in the ER Hospitalist service was consulted for admission in light of septic shock. On evaluation patient is very anxious and lethargic but was able to endorse history as above. He denies IV drug use. 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 No overnight events. No concerns per staff. No fever chills nausea vomiting. Improved labs and hemodynamics. Off pressors. Improving urine output. Complains of headache. Restart home medications. White count down from 28.4-19,000. 12% bands. No obvious source identified as yet. Cultures negative so far. Creatinine down to 1.1 from 2.4. LFT stable. Blood cultures gram-positive cocci. 11/14-patient clinically improved with white count down to 16.3. Off pressors. Persistent gram-positive bacteremia on surveillance cultures staph aureus. ID consulted. Likely source right foot infection. Patient complains of significant right foot swelling over the last few days and difficulty weightbearing. He also endorses a history of prior foot surgery few years back with hardware in place. MRI ordered. Renal function normalized 2.8. On phosphorus/magnesium replacement as indicated. Improved blood sugars. Complains of heartburn requiring Tums transfer to medical floor with expert witness 11/15 Slept all right. Says his right foot is little more swollen. Usually takes hydrochlorothiazide 25mg at home when he gets edema. Also feels his chronic back pain is worsening and he states he takes 10 mg of hydrocodone 4 times a day and and as needed 1 occasionally. Has headaches. 11/16 Slept well again. Feeling better. Right foot less swollen. Leukocytosis/PCT improving. Blood cultures from yesterday are growing positive. Patient describes sleeping a dog at his legs he often looks his wounds, has multiple excoriations bilateral lower extremities. 11/17 No new complaints overnight events. Right foot less swollen. Blood cultures obtained yesterday, awaiting results. 11/18 Feeling well. No overnight events or new complaints. Blood cultures from the second hours still not growing anything. 11/19 Doing well. IV antibiotics set up with CADD pump. No new complaints. Stable for discharge. A: *Septic shock: 2/2 MSSA Bacteremia -resolved *MSSA Bacteremia: source likely LE wounds -echo no vegetations on TTE *Right Foot Cellulitis: -MRI foot with cellulitis, no osteo *KEN: 2/2 sepsis endorgan dysfunction. Improved *AMS: 2/2 sepsis endorgan dysfunction. Clinically improved *DM II w/neuropathy: *Morbid obesity: *HTN: *Degenerative joint disease: continue home dose opioids *Hypothyroidism: on thyroxine at home *Hypophos: replete *Chronic T/L spine pain: no change Discharge diagnosis: Septic shock MSSA bacteremia right foot cellulitis acute kidney injury Secondary discharge diagnosis: Altered mental status diabetes morbid obesity hypertension hypothyroidism chronic back pain - Time Spent with Patient Total time spent providing and/or coordinating discharge services: Greater than 30 minutes Medical - DS: Exam - Constitutional Vitals: Vital Signs Temp Pulse Resp BP BP Pulse Ox 11/19/19 08:00 98.9 F 93 H 18 120/72 95 11/19/19 03:51 98.5 F 99 H 18 118/71 93 11/19/19 00:44 99 H 11/19/19 00:11 98.8 F 109 H 18 116/71 95 11/18/19 19:26 99.2 F H 104 H 18 110/61 95 11/18/19 15:50 96 F L 20 120/74 96 11/18/19 12:00 97.7 F 20 121/74 92 Intake and Output 11/18/19 11/19/19 11/19/19 21:59 05:59 13:59 Intake Total 500 Output Total 400 925 525 Balance -400 -425 -525 Intake: Oral 500 Output: Void Amount 400 925 525 Other: Urine Appearance Clear Urine Color Dark Yellow Weight 140.251 kg Medical - DS: Data Labs on day of discharge: Preliminary micro results at discharge 11/17/19 11:25 Blood Culture - Preliminary Blood 11/17/19 11:18 Blood Culture - Preliminary Blood 11/16/19 10:07 Blood Culture - Preliminary Blood 11/16/19 10:04 Blood Culture - Preliminary Blood Staphylococcus aureus 11/15/19 08:11 Blood Culture - Preliminary Blood Staphylococcus aureus 11/15/19 08:09 Blood Culture - Preliminary Blood Staphylococcus aureus 11/14/19 11:27 Blood Culture - Preliminary Blood Staphylococcus aureus Medical - DS: A/P - Patient/Caregiver Discharge Instructions Activity: increase activity as tolerated Diet: Consistent Carbohydrate Additional Instructions: Wound Care Instructions: Cleanse both lower legs and feet with Chlorhexidine/Hibiclens daily. Let dry. Apply antifungal powder to right foot and between right toes. Cover blistered area with gauze, apply dry gauze between toes and secure with Kerlix from foot to upper leg. Left Foot: Apply bacitracin to wound on bottom of left foot followed by gauze and secure with Kerlix from foot to upper leg. Apply antifungal powder to left foot et between toes. Apply dry gauze between toes as well. No weight bearing right foot. Use crutches/wheelchair at home. Contact [facility] to give out-patient Cefazolin via cad pump (our pump or theirs) at discharge -FOLLOW-UP with PCP regarding possibly carotid u/s to evaluate carotid bruit -Outpt [facility] being set up -F/u labs per ID Prescriptions: ceFAZolin [Ancef] 2 gm IV Q8H #1 vial Losartan [Cozaar] 25 mg PO QAM #1 tab Other Amb Orders: Transesophageal Echocardiogram Location: None Selected Rollabout Location: None Selected Basic Metabolic Panel Location: None Selected Complete Blood Count Location: None Selected - Follow up Plan Follow up with: Maulik Lofton MD [Physician] - Dash Manuel MD [Physician] - Robert House DPM [Physician] - Yaa Keller ARNP [Primary Care Provider] - (Please call to schedule a post hospital follow up appointment) Disposition: Home, Self-Care Care Plan Goals: This discharge packet is provided to you to help keep you informed about your care. We want to ensure you get everything you need when you go home. You will also be receiving a call from us in a few days to follow up with you and see how you are doing since your discharge. This gives us a chance to listen to any concerns you maybe experiencing since you were discharged or any additional needs you may have, as well as providing us feedback on your care experience. We strive to always provide excellent care and thank you for your feedback and for choosing [facility]. Prognosis: Fair Rehab Potential: Fair Overall status at discharge: patient is progressing back to baseline
--- NOTE | 2019-11-19 09:56 | General Surgery Progress Note ---
Subjective Narrative: Note initiated : 11/19/19 at 9:52 am Service Date, if different from initiated Date: [] Patient: Ahmet Zelaya 39 y/o M admitted on 11/13/19 for severe abdominal pain, hypotension. Chief Complaint: [] Saw patient along with Renee BLOOM. Patient is out of ICU. In room 111 Med Surg floor. Feels well. Keen to go home. Objective Temp Pulse Resp BP Pulse Ox 98.9 F 93 H 18 120/72 95 11/19/19 08:00 11/19/19 08:00 11/19/19 08:00 11/19/19 08:00 11/19/19 08:00 AVSS: HD stable KIKA unremarkable L/E: Resolved inflammatory changes of legs. RIGHT foot post surgical changes IMPROVING. He NEEDS to continue wound care and OFF loading, LEFT plantar PU stage 2 under great toe is stable. Labs and imaging studies reviewed. - Additional Data Intake & Output - Last 24 hours: Intake & Output 11/17/19 11/18/19 11/19/19 11/20/19 05:59 05:59 05:59 05:59 Intake Total 5138 2145 1940 Output Total 9175 5375 3325 525 Balance -4037 -3230 -1385 -525 Weight 306 lb 6.4 oz 309 lb 1.6 oz 309 lb 3.2 oz - Labs 11/17/19 05:00 11/18/19 05:10 Assessment and Plan (1) Skin and subcutaneous tissue disease Problem details: COMPLICATED SKIN AND SKIN STRUCTURE INFECTION RIGHT AND LEFT FEET AND LEGS. Status: Acute Current Visit: Yes (2) Sepsis Problem details: Diabetes , neuropathy, Charcot Foot surgery RIGHT foot. PET animals at home. Status: Acute Current Visit: Yes (3) Septic shock Status: Acute Current Visit: Yes (4) Uncontrolled diabetes mellitus Status: Acute Current Visit: Yes (5) Wound of foot Status: Chronic Current Visit: Yes - Narrative A/P Narrative: OK to D/C Mupirocin ointment to nostrils / nares. 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 He is OK to be discharged home with ongoing wound care . Antibiotic recommendations per ID. Roll about scooter for NWB on Right foot. Darco wedge shoe for LEFT foot. OFF load toes. Plan: After discharge F/U at wound clinic in one week. F/U with Podiatry Dr House in 1 week. 25 - 35 minutes
--- NOTE | 2019-11-19 10:43 | Infectious Disease Prog Note ---
Subjective Patient information: Note initiated : 11/19/19 at 10:34 am Service Date, if different from initiated Date: [] Patient: Ahmet Zelaya 39 y/o M admitted on 11/13/19 for severe abdominal pain, hypotension. Chief Complaint: [] Interval history: Patient is doing fine overall although rates pain in right foot at around 8 out of 10. Denies any fever, chills, nausea, vomiting, diarrhea. Objective Objective Narrative: Alert, oriented x3 No thrush Has a 2 out of 6 systolic murmur best heard over left second intercostal space Has bilateral carotid bruits, left more than right Bowel sounds present, discomfort in the lower abdomen, no guarding, soft to palpate Has scabbed wound over his [place] bilaterally and the right foot is under dressing - Vital Signs Vital signs: Vital Signs Temp Pulse Resp BP BP Pulse Ox 11/19/19 08:00 37.2 C 93 H 18 120/72 95 11/19/19 03:51 36.9 C 99 H 18 118/71 93 11/19/19 00:44 99 H 11/19/19 00:11 37.1 C 109 H 18 116/71 95 11/18/19 19:26 37.3 C H 104 H 18 110/61 95 11/18/19 15:50 35.5 C L 20 120/74 96 11/18/19 12:00 36.5 C 20 121/74 92 Intake and Output 11/18/19 11/19/19 11/19/19 21:59 05:59 13:59 Intake Total 500 Output Total 400 925 525 Balance -400 -425 -525 Intake: Oral 500 Output: Void Amount 400 925 525 Other: Urine Appearance Clear Urine Color Dark Yellow Weight 140.251 kg Intake & Output: Intake & Output 11/18/19 11/19/19 11/19/19 21:59 05:59 13:59 Intake Total 500 Output Total 400 925 525 Balance -400 -425 -525 Weight 140.251 kg Intake: Oral 500 Output: Void Amount 400 925 525 Other: Urine Appearance Clear Urine Color Dark Yellow - Lab 11/17/19 05:00 11/18/19 05:10 Most recent lab results Calcium 8.8 mg/dl (8.6-10.4) 11/18/19 05:10 Phosphorus 3.0 mg/dL (2.7-4.5) 11/17/19 05:00 Magnesium 1.9 mg/dL (1.6-2.5) 11/17/19 05:00 Microbiology 11/16/19 10:04 Blood Blood Culture - Preliminary Staphylococcus aureus 11/13/19 11:08 Blood Blood Culture - Final Staphylococcus aureus 11/18/19 04:30 Foot - Right Gram Stain - Final 11/17/19 11:25 Blood Blood Culture - Preliminary 11/17/19 11:18 Blood Blood Culture - Preliminary 11/16/19 10:07 Blood Blood Culture - Preliminary 11/15/19 08:11 Blood Blood Culture - Preliminary Staphylococcus aureus 11/15/19 08:09 Blood Blood Culture - Preliminary Staphylococcus aureus 11/14/19 11:27 Blood Blood Culture - Preliminary Staphylococcus aureus 11/14/19 11:33 Blood Blood Culture - Final Staphylococcus aureus 11/13/19 11:20 Blood Blood Culture - Final Staphylococcus aureus 11/15/19 09:14 Nasopharynx Respiratory Panel (PCR) - Final 11/15/19 09:14 Nasopharynx Respiratory Virus Panel (PCR) - Final 11/15/19 11:08 Nose - Both Right and Left MRSA (PCR) - Final 11/13/19 11:09 Foot - Left Gram Stain - Final 11/13/19 11:09 Foot - Left Wound Culture - Final Staphylococcus aureus 11/14/19 05:45 Stool C. difficile GDH Antigen & Toxins - Final Medications Active Medications: Acetaminophen (Tylenol) 650 mg PO Q4-6HP PRN; Protocol PRN Reason: Per Pain Protocol/Fever > 101 Last Admin: 11/17/19 11:01 Dose: 650 mg Documented by: Admin: 11/16/19 16:42 Dose: 650 mg Documented by: Admin: 11/15/19 14:19 Dose: 650 mg Documented by: UXF Al Hydrox/Mg Hydrox/Simethicone (Maalox) 30 ml PO Q6HP PRN PRN Reason: Dyspepsia Bisacodyl (Dulcolax) 10 mg KS Q2-3DAYS PRN PRN Reason: Constipation Calcium Carbonate/Glycine (Tums) 500 mg CHEWED Q4HP PRN PRN Reason: Dyspepsia Last Admin: 11/16/19 23:19 Dose: 500 mg Documented by: Admin: 11/16/19 11:58 Dose: 500 mg Documented by: Admin: 11/16/19 02:56 Dose: 500 mg Documented by: Admin: 11/15/19 12:47 Dose: 500 mg Documented by: ALBERTA Cefazolin Sodium (Ancef) 2 gm IV Q8H [facility] Last Admin: 11/19/19 05:48 Dose: 2 gm Documented by: Admin: 11/18/19 22:15 Dose: 2 gm Documented by: Admin: 11/18/19 15:06 Dose: 2 gm Documented by: [email or web address] Admin: 11/18/19 08:09 Dose: 2 gm Documented by: [email or web address] Admin: 11/17/19 22:23 Dose: 2 gm Documented by: Admin: 11/17/19 14:21 Dose: 2 gm Documented by: Admin: 11/17/19 05:07 Dose: 2 gm Documented by: Admin: 11/16/19 22:15 Dose: 2 gm Documented by: Admin: 11/16/19 13:51 Dose: 2 gm Documented by: Admin: 11/16/19 05:35 Dose: 2 gm Documented by: Admin: 11/15/19 21:42 Dose: 2 gm Documented by: Admin: 11/15/19 16:08 Dose: 2 gm Documented by: ALBERTA Dextrose (Dextrose 50%) 0 ml IV UD PRN PRN Reason: Hypoglycemia Diagnostic Test (Pha) (Accu-Chek) 1 each FS ACHS [facility] Admin: 11/19/19 07:44 Dose: 1 each Documented by: Admin: 11/18/19 21:57 Dose: 1 each Documented by: Admin: 11/18/19 18:00 Dose: 1 each Documented by: [email or web address] Admin: 11/18/19 11:43 Dose: 1 each Documented by: [email or web address] Admin: 11/18/19 08:08 Dose: 1 each Documented by: [email or web address] Admin: 11/17/19 22:21 Dose: 1 each Documented by: Admin: 11/17/19 16:45 Dose: 1 each Documented by: Admin: 11/17/19 11:25 Dose: 1 each Documented by: ColetteXCatrina Admin: 11/17/19 07:30 Dose: 1 each Documented by: Admin: 11/16/19 20:52 Dose: 1 each Documented by: Admin: 11/16/19 16:40 Dose: 1 each Documented by: ColetteXCatrina Admin: 11/16/19 11:40 Dose: 1 each Documented by: ColetteXCatrina Admin: 11/16/19 07:15 Dose: 1 each Documented by: Admin: 11/15/19 21:14 Dose: 1 each Documented by: Admin: 11/15/19 17:15 Dose: 1 each Documented by: ColetteXCatrina Admin: 11/15/19 11:25 Dose: 1 each Documented by: ALBERTA Docusate Sodium (Colace) 100 mg PO BID [facility] Admin: 11/19/19 07:43 Dose: 100 mg Documented by: Admin: 11/18/19 21:58 Dose: 100 mg Documented by: Admin: 11/18/19 09:39 Dose: 100 mg Documented by: [email or web address] Admin: 11/17/19 22:24 Dose: Not Given Documented by: HILLARY Non-Admin Reason: Loose Stool Admin: 11/17/19 09:30 Dose: Not Given Documented by: ALBERTA Non-Admin Reason: Loose Stool Admin: 11/16/19 20:50 Dose: Not Given Documented by: HILLARY Non-Admin Reason: Loose Stool Admin: 11/16/19 09:18 Dose: Not Given Documented by: ALBERTA Non-Admin Reason: Loose Stool Admin: 11/15/19 21:39 Dose: Not Given Documented by: HILLARY Non-Admin Reason: Loose Stool Fenofibrate (Antara) 43 mg PO HS [facility] Last Admin: 11/18/19 21:58 Dose: 43 mg Documented by: Admin: 11/17/19 22:23 Dose: 43 mg Documented by: Admin: 11/16/19 20:53 Dose: 43 mg Documented by: Admin: 11/15/19 21:16 Dose: 43 mg Documented by: HILLARY Folic Acid (Folic Acid) 1 mg PO DAILY [facility] Last Admin: 11/19/19 07:40 Dose: 1 mg Documented by: Admin: 11/18/19 08:10 Dose: 1 mg Documented by: [id number] Admin: 11/17/19 09:29 Dose: 1 mg Documented by: Admin: 11/16/19 09:17 Dose: 1 mg Documented by: UXF Glipizide (Glucotrol) 10 mg PO BIDAC [facility] Last Admin: 11/19/19 07:43 Dose: 10 mg Documented by: Admin: 11/18/19 18:00 Dose: 10 mg Documented by: Admin: 11/18/19 09:09 Dose: 10 mg Documented by: MAKENZIE Glucose (Insta-Glucose) 15 gm PO PRN PRN PRN Reason: Hypoglycemia Heparin Sodium (Porcine) (Heparin) 5,000 unit SQ Q12 [facility] Admin: 11/19/19 08:08 Dose: 5,000 unit Documented by: Admin: 11/18/19 21:59 Dose: 5,000 unit Documented by: Admin: 11/18/19 09:39 Dose: 5,000 unit Documented by: Admin: 11/17/19 22:22 Dose: 5,000 unit Documented by: Admin: 11/17/19 09:30 Dose: 5,000 unit Documented by: Admin: 11/16/19 20:53 Dose: 5,000 unit Documented by: Admin: 11/16/19 09:18 Dose: 5,000 unit Documented by: Admin: 11/15/19 21:16 Dose: 5,000 unit Documented by: HILLARY Hydralazine HCl (Apresoline) 0 mg IV Q2HP PRN PRN Reason: Hypertension Potassium Chloride 40 meq/ (Dextrose) 520 mls @ 130 mls/hr IV UD PRN PRN Reason: K+ = or < 3.5 Magnesium Sulfate (Magnesium Sulfate) 2 gm in 50 mls @ 50 mls/hr IV UD PRN PRN Reason: MG = or < 1.7 Last Infusion: 11/16/19 09:35 Dose: 0 mls/hr Documented by: ColetteXF Admin: 11/16/19 08:30 Dose: 50 mls/hr Documented by: ALBERTA Acetaminophen (Ofirmev) 650 mg in 65 mls @ 130 mls/hr IV Q6HP PRN; Protocol PRN Reason: Per Pain Protocol/Fever > 101 Insulin Human Lispro (Humalog) 0 unit SQ ACHS [facility]; Protocol Last Admin: 11/19/19 08:07 Dose: 2 unit Documented by: Admin: 11/18/19 21:58 Dose: Not Given Documented by: ROSIBEL Non-Admin Reason: Labs Outside of Range Admin: 11/18/19 18:00 Dose: Not Given Documented by: MAKENZIE Non-Admin Reason: No Coverage Needed Admin: 11/18/19 11:46 Dose: 2 unit Documented by: Admin: 11/18/19 08:23 Dose: 3 unit Documented by: Admin: 11/17/19 22:21 Dose: 4 unit Documented by: Admin: 11/17/19 17:06 Dose: 2 unit Documented by: Admin: 11/17/19 11:39 Dose: 2 unit Documented by: Admin: 11/17/19 08:00 Dose: 2 unit Documented by: ColetteXCatrina Admin: 11/16/19 20:52 Dose: 4 unit Documented by: Admin: 11/16/19 16:46 Dose: 1 unit Documented by: ColetteXCatrina Admin: 11/16/19 12:04 Dose: 2 unit Documented by: ColetteXF Admin: 11/16/19 07:47 Dose: 1 unit Documented by: ColetteXCatrina Admin: 11/15/19 21:15 Dose: 3 unit Documented by: Admin: 11/15/19 17:25 Dose: 3 unit Documented by: Admin: 11/15/19 12:10 Dose: 2 unit Documented by: ColetteXF Iron Carb/Multivit/[place]/Folic Acid (Multivitamin W/Minerals) 1 tab PO DAILY [facility] Last Admin: 11/19/19 07:42 Dose: 1 tab Documented by: Admin: 11/18/19 08:09 Dose: 1 tab Documented by: Admin: 11/17/19 09:29 Dose: 1 tab Documented by: Admin: 11/16/19 09:17 Dose: 1 tab Documented by: ALBERTA Levothyroxine Sodium (Synthroid) 100 mcg PO ACB [facility] Last Admin: 11/19/19 07:40 Dose: 100 mcg Documented by: Admin: 11/18/19 08:10 Dose: 100 mcg Documented by: [email or web address] Admin: 11/17/19 07:30 Dose: 100 mcg Documented by: ALBERTA Comments: Unable to scan Admin: 11/16/19 07:47 Dose: 100 mcg Documented by: ALBERTA Levothyroxine Sodium (Synthroid) 75 mcg PO ACB [facility] Last Admin: 11/19/19 07:41 Dose: 75 mcg Documented by: Admin: 11/18/19 08:10 Dose: 75 mcg Documented by: [id number] Admin: 11/17/19 07:30 Dose: 75 mcg Documented by: Admin: 11/16/19 07:48 Dose: 75 mcg Documented by: ALBERTA Loperamide HCl (Imodium) 2 mg PO DAILYP PRN PRN Reason: Diarrhea Last Admin: 11/16/19 09:17 Dose: 2 mg Documented by: Admin: 11/16/19 06:05 Dose: 2 mg Documented by: [email or web address] Admin: 11/16/19 04:41 Dose: 2 mg Documented by: [email or web address] Admin: 11/15/19 14:19 Dose: 2 mg Documented by: ALBERTA Lorazepam (Ativan) 0.5 mg IV Q6HP PRN PRN Reason: Anxiety Last Admin: 11/17/19 22:22 Dose: 0.5 mg Documented by: [email or web address] Admin: 11/16/19 22:14 Dose: 0.5 mg Documented by: HILLARY Losartan Potassium (Cozaar) 25 mg PO QAM [facility] Melatonin (Melatonin 3mg Tablet) 3 mg PO HSP PRN PRN Reason: Insomnia Last Admin: 11/15/19 21:40 Dose: 3 mg Documented by: HILLARY Metformin HCl (Glucophage) 1,000 mg PO BIDCC [facility] Last Admin: 11/19/19 07:42 Dose: 1,000 mg Documented by: Admin: 11/18/19 18:00 Dose: 1,000 mg Documented by: [email or web address] Admin: 11/18/19 08:10 Dose: 1,000 mg Documented by: [email or web address] Admin: 11/17/19 17:15 Dose: 1,000 mg Documented by: Admin: 11/17/19 08:00 Dose: 1,000 mg Documented by: Admin: 11/16/19 16:45 Dose: 1,000 mg Documented by: Admin: 11/16/19 07:51 Dose: 1,000 mg Documented by: Admin: 11/15/19 17:25 Dose: 1,000 mg Documented by: ALBERTA Mupirocin (Bactroban Oint 2%) 1 dose TOPICAL DAILY [facility] Last Admin: 11/19/19 07:44 Dose: 1 dose Documented by: Admin: 11/18/19 09:10 Dose: 1 dose Documented by: Admin: 11/17/19 09:30 Dose: 1 dose Documented by: Admin: 11/16/19 08:45 Dose: 1 dose Documented by: ALBERTA Ondansetron HCl (Zofran Odt) 4 mg SL Q4-6HP PRN; Protocol PRN Reason: Nausea And Vomiting Ondansetron HCl (Zofran) 4 mg IV Q4-6HP PRN; Protocol PRN Reason: Nausea And Vomiting Last Admin: 11/16/19 02:56 Dose: 4 mg Documented by: Admin: 11/15/19 21:32 Dose: 4 mg Documented by: HILLARY Oxycodone HCl (Roxicodone) 10 - 20 mg PO Q4HP PRN; Protocol PRN Reason: Per Pain Protocol Last Admin: 11/19/19 07:39 Dose: 20 mg Documented by: MARCI Oxycodone/Acetaminophen (Percocet 5-325 Mg) 1 tab PO Q6H [facility]; Protocol Last Admin: 11/19/19 05:48 Dose: 1 tab Documented by: Admin: 11/19/19 00:09 Dose: 1 tab Documented by: Admin: 11/18/19 17:59 Dose: 1 tab Documented by: Admin: 11/18/19 11:47 Dose: 1 tab Documented by: Admin: 11/18/19 08:11 Dose: 1 tab Documented by: Admin: 11/18/19 00:05 Dose: 1 tab Documented by: Admin: 11/17/19 17:32 Dose: 1 tab Documented by: Admin: 11/17/19 11:39 Dose: 1 tab Documented by: Admin: 11/17/19 05:13 Dose: 1 tab Documented by: Admin: 11/16/19 23:08 Dose: 1 tab Documented by: Admin: 11/16/19 18:09 Dose: 1 tab Documented by: Admin: 11/16/19 11:25 Dose: 1 tab Documented by: Admin: 11/16/19 05:33 Dose: 1 tab Documented by: Admin: 11/16/19 00:16 Dose: 1 tab Documented by: Admin: 11/15/19 18:04 Dose: 1 tab Documented by: Admin: 11/15/19 12:38 Dose: 1 tab Documented by: ALBERTA Empagliflozin [ Jardiance] 25 Mg Tablet 1 dose PO [facility] Last Admin: 11/18/19 21:58 Dose: 1 dose Documented by: Admin: 11/17/19 22:24 Dose: 1 dose Documented by: Admin: 11/16/19 20:54 Dose: 1 dose Documented by: Admin: 11/15/19 21:16 Dose: 1 dose Documented by: HILLARY Potassium Chloride (Klor-Con) 40 meq PO DAILYP PRN PRN Reason: K+ < 3.5 Potassium/Phosphorus/Sodium (Neutra Phos) 2 packet PO BIDP PRN PRN Reason: Phosphorus less than 2.6 Last Admin: 11/15/19 11:00 Dose: 2 packet Documented by: ALBERTA Pregabalin (Lyrica) 400 mg PO DAILY [facility] Last Admin: 11/19/19 07:41 Dose: 400 mg Documented by: Admin: 11/18/19 08:10 Dose: 400 mg Documented by: [email or web address] Admin: 11/17/19 09:51 Dose: 400 mg Documented by: Admin: 11/16/19 09:16 Dose: 400 mg Documented by: ALBERTA Pregabalin (Lyrica) 200 mg PO [facility] Last Admin: 11/18/19 21:58 Dose: 200 mg Documented by: Admin: 11/17/19 22:23 Dose: 200 mg Documented by: Admin: 11/16/19 20:54 Dose: 200 mg Documented by: Admin: 11/15/19 21:39 Dose: 200 mg Documented by: HILLARY Sodium Chloride (Saline Flush) 10 ml IV Q8 [facility] Last Admin: 11/19/19 05:48 Dose: 10 ml Documented by: Admin: 11/18/19 22:00 Dose: 10 ml Documented by: Admin: 11/18/19 15:07 Dose: 10 ml Documented by: [id number] Admin: 11/18/19 08:12 Dose: 10 ml Documented by: Admin: 11/17/19 22:24 Dose: 10 ml Documented by: Admin: 11/17/19 14:20 Dose: 10 ml Documented by: Admin: 11/17/19 05:14 Dose: 10 ml Documented by: Admin: 11/16/19 22:15 Dose: 10 ml Documented by: Admin: 11/16/19 13:52 Dose: 10 ml Documented by: Admin: 11/16/19 10:15 Dose: 10 ml Documented by: Admin: 11/16/19 07:01 Dose: Not Given Documented by: UXF Non-Admin Reason: Continuous IV Admin: 11/15/19 22:00 Dose: Not Given Documented by: HILLARY Non-Admin Reason: Continuous IV Admin: 11/15/19 14:21 Dose: 10 ml Documented by: Admin: 11/15/19 14:10 Dose: 10 ml Documented by: UXF Thiamine HCl (Vitamin B1) 100 mg PO DAILY [facility] Last Admin: 11/19/19 07:43 Dose: 100 mg Documented by: Admin: 11/18/19 08:09 Dose: 100 mg Documented by: [email or web address] Admin: 11/17/19 09:29 Dose: 100 mg Documented by: Admin: 11/16/19 09:17 Dose: 100 mg Documented by: ColetteXF Assessment and Plan - Narrative A/P Narrative: A: 1. Complicated MSSA bacteremia: has multiple positive blood cultures since 11/12-11/15. Cx neg since 11/16 -Likely sources is scabbed wounds over his extremities, of which 1 grew MSSA as well -Septic shock secondary to bacteremia: now resolved -Needs 1 major and one minor of modified Arce's criteria for possible endocar ditis -TTE negative inpatient x1 2. Type 2 diabetes with peripheral neuropathy 3. IBS/gastroparesis Recommendations: Continue IV cefazolin 2 g every 8 hours. Counting from 11/17/19, day 3 of an tibiotic therapy - consider PICC line placement, as blood cultures from 11/16 have been negative for more than 48 hours - will plan for at least 4 weeks of IV Cefazolin through a CADD pump - leg elevation, wt offloading and wound care. Dr Manuel on board - schedule outpatient [facility] - F/u in ID clinic in 4 weeks. Follow up labs: CBC, BMP weekly; ESR and CRP every other week -Spoke with patient PCP about considering carotid ultrasound as outpatient will follow Maulik Lofton MD Infectious disease
[2019-11-19] MEDS: LOSARTAN 50 MG TABLET PO SCH (13:32)
[2019-11-19] MEDS: FENOFIBRATE 43 MG CAPSULE PO SCH (20:43)
[2019-11-19] MEDS: LORazepam 2 MG/ML VIAL IV PRN (22:08)
[2019-11-20] MEDS: oxyCODONE HCL 5 MG TABLET PO PRN ×3 (02:38→11:45)
[2019-11-20] MEDS: oxyCODONE/APAP 5/325MG TABLET PO SCH ×2 (05:51→11:29)
[2019-11-20] MEDS: ceFAZolin 1 GM VIAL IV SCH ×2 (05:52→12:36)
[2019-11-20] MEDS: LEVOTHYROXINE 75 MCG TABLET PO SCH (07:27)
[2019-11-20] MEDS: LEVOTHYROXINE 100 MCG TABLET PO SCH (07:27)
[2019-11-20] MEDS: glipiZIDE 5 MG TABLET PO SCH (07:27)
--- NOTE | 2019-11-20 07:39 | XRay Report ---
HISTORY: PICC line insertion FINDINGS: A PICC line has been inserted through the left arm with the tip in the region of the superior vena cava. No pneumothorax, pleural effusion or widening in the mediastinum are present. Visualized lung fox are clear. Heart size is upper limits of normal. IMPRESSION: Well-positioned PICC line and no acute abnormality Interpreted and Authenticated by: Delvis Espitia 11/20/19
[2019-11-20] MEDS: INSULIN LISPRO 1 UNIT/0.01 ML UNIT SQ SCH ×2 (07:40→11:32)
[2019-11-20] MEDS: FOLIC ACID 1 MG TABLET PO SCH (08:47)
[2019-11-20] MEDS: LOSARTAN 50 MG TABLET PO SCH (08:47)
[2019-11-20] MEDS: MULTIVIT,THER IRON,CA,FA & MIN 1 TABLET PO SCH (08:47)
[2019-11-20] MEDS: THIAMINE 100 MG TABLET PO SCH (08:47)
[2019-11-20] MEDS: DOCUSATE SODIUM 100 MG CAPSULE PO SCH (08:47)
[2019-11-20] MEDS: PREGABALIN 100 MG CAPSULE PO SCH (08:49)
[2019-11-20] MEDS: HEPARIN 5,000 UNIT/ML VIAL SQ SCH (08:51)
[2019-11-20] MEDS: metFORMIN 500 MG TABLET PO SCH (08:57)
[2019-11-20] MEDS: 0.9 % SODIUM CHLORIDE 10 ML SYRINGE IV SCH (09:09)
[2019-11-20] MEDS: MUPIROCIN OINT 2% 22GM TOPICAL SCH ×2 (09:10→09:14)
--- NOTE | 2019-11-20 13:20 | General Surgery Progress Note ---
Subjective Patient reports: feels better, tolerating a regular diet, afebrile, other (Keen to go home. Getting along with roll about scooter and walker for limied mobility. BLister site RIGHT foot dorsal surface great toe MPJ area drained serous fluid. Staining of dressing. ) Narrative: Note initiated : 11/20/19 at 1:17 pm Service Date, if different from initiated Date: [] Patient: Ahmet Zelaya 39 y/o M admitted on 11/13/19 for severe abdominal pain, hypotension. Chief Complaint: [] Objective Temp Pulse Resp BP Pulse Ox 98.7 F 99 H 20 113/70 94 11/20/19 12:35 11/20/19 12:35 11/20/19 12:00 11/20/19 12:35 11/20/19 12:35 No changes KIKA. Hear murmur and carotid murmur ( Per ID ) Right foot, blister site dorsal surface of MPJ : Poor granulation tissue. Wound probes to synovial tissues and bone. NO odor, NO purulence, NON tender. - Additional Data Intake & Output - Last 24 hours: Intake & Output 11/18/19 11/19/19 11/20/19 11/21/19 05:59 05:59 05:59 05:59 Intake Total 2145 1940 2870 Output Total 5376 3325 3675 350 Balance -3230 -1385 -805 -350 Weight 309 lb 1.6 oz 309 lb 3.2 oz 314 lb 4 oz - Labs 11/17/19 05:00 11/18/19 05:10 Assessment and Plan (1) Skin and subcutaneous tissue disease Problem details: COMPLICATED SKIN AND SKIN STRUCTURE INFECTION RIGHT AND LEFT FEET AND LEGS. Status: Acute Current Visit: Yes (2) Sepsis Problem details: Diabetes , neuropathy, Charcot Foot surgery RIGHT foot. PET animals at home. Status: Acute Current Visit: Yes (3) Septic shock Status: Acute Current Visit: Yes (4) Uncontrolled diabetes mellitus Status: Acute Current Visit: Yes (5) Wound of foot Status: Chronic Current Visit: Yes - Narrative A/P Narrative: Assessment: CSSSI and sepsis syndrome: Improved clinically with supportive care, IV antibiotics AND local wound care. Reviewed ID input and discussed with Dr. Lofton. Pln: Debridement of wound RIGHT great toe at bedside. Ongoing wound care at explained to patient and nurses. OFF loading and NWB over RIGHT foot. Local wound care as discussed. F/U at clinic in 1 week. - Time Spent With Patient Total time spent is greater than 50% in coordination of care (as documented) at patient's floor/unit and/or counseling patient:
--- NOTE | 2019-11-20 13:28 | General Surgery Procedure Note ---
Date of procedure: Note initiated : 11/20/19 at 1:26 pm Service Date, if different from initiated Date: [] Pre-op diagnosis: LEFT great toe dorsal surface WOUND Post-op diagnosis: same Procedure: Debridement at bedside with scissors and picker operator. Anesthesia: none Surgeon: Dash Manuel Estimated blood loss: 0 Pathology: other Condition: stable Disposition: floor
--- NOTE | 2019-11-20 14:15 | Operative Note ---
DATE OF OPERATION: 11/20/2019 PREOPERATIVE DIAGNOSES: 1. Open wound dorsal surface right foot over the great toe MP joint area. 2. Patient with a Charcot foot arthropathy and resolved sepsis syndrome. POSTOPERATIVE DIAGNOSES: 1. Open wound dorsal surface right foot over the great toe MP joint area. 2. Patient with a Charcot foot arthropathy and resolved sepsis syndrome. PROCEDURE: Debridement. INDICATIONS: This patient has a longstanding history of Charcot's arthropathy and recently underwent reconstructive surgery. He was admitted via emergency with sepsis syndrome. This has responded to aggressive medical management. He was subsequently noted to have inflammatory changes at the site of prior surgical scars and Charcot's foot arthropathy. He had developed a blister which had drained spontaneously. Bedside debridement was carried out to complete this procedure. PROCEDURE NOTE: After obtaining informed verbal consent, the wound site was widely cleaned, prepped and draped in a standard fashion. Chlorhexidine solution was used and the wound site was covered with paper towels. Nonviable de-epithelialized skin over the wound site was excised with pickups and scissors. The soft tissue necrotic adipose debris was washed away with normal saline. This wound probes to the bone. We placed soluable ointment and gauze dressing to cover this. PLAN: This cleansing and dressing will continue regularly after discharge. He will be seen at the wound care center in 1 week. The procedure was well tolerated. All counts were reported correct. VD:yue Job ID: [id number] Doc ID: [id number] Dash Manuel MD
--- NOTE | 2019-11-20 22:27 | Infectious Disease Prog Note ---
Subjective Patient information: Note initiated : 11/20/19 at 10:25 pm Service Date, if different from initiated Date: [] Patient: Ahmet Zelaya 39 y/o M admitted on 11/13/19 for severe abdominal pain, hypotension. Chief Complaint: [] Interval history: Pt feels much better. Denied any fever, chills, n/v, diarrhea. Discused plans for outpt [facility] and ID clinic f/u. Pt agreeable to go to [facility] for IV Cefazolin injections 3 times/day. discussed side effects such as diarrhea, and when to call us in ID clinic. Objective Objective Narrative: ao x 3, in nad no thrush chest cta s1 s2 normal, 2/6 systolic murmur best heard at lt 2nd ICS bs ++, nttd right foot: has redness, swelling and a small ulcer over the base of great toe. Purulent drainage + from the ulcer. No distal discoloration of foot. DP artery palpable. - Vital Signs Vital signs: Vital Signs Temp Pulse Resp BP BP Pulse Ox 11/20/19 12:35 37.1 C 99 H 113/70 94 11/20/19 12:00 37.1 C 99 H 20 115/78 94 11/20/19 08:10 92 11/20/19 08:00 36.0 C L 91 H 20 122/68 92 11/20/19 04:25 37.1 C 96 H 20 123/70 94 11/19/19 23:37 36.9 C 102 H 20 120/66 93 Intake and Output 11/20/19 11/20/19 11/21/19 13:59 21:59 05:59 Intake Total 1760 Output Total 1350 Balance 410 Intake: Oral 1760 Output: Void Amount 1350 Intake & Output: Intake & Output 11/20/19 11/20/19 11/21/19 13:59 21:59 05:59 Intake Total 1760 Output Total 1350 Balance 410 Intake: Oral 1760 Output: Void Amount 1350 - Lab 11/17/19 05:00 11/18/19 05:10 Most recent lab results Calcium 8.8 mg/dl (8.6-10.4) 11/18/19 05:10 Phosphorus 3.0 mg/dL (2.7-4.5) 11/17/19 05:00 Magnesium 1.9 mg/dL (1.6-2.5) 11/17/19 05:00 Microbiology 11/18/19 04:30 Foot - Right Gram Stain - Final 11/18/19 04:30 Foot - Right Wound Culture - Final Staphylococcus aureus 11/17/19 11:25 Blood Blood Culture - Preliminary 11/17/19 11:18 Blood Blood Culture - Preliminary 11/16/19 10:07 Blood Blood Culture - Preliminary 11/14/19 11:27 Blood Blood Culture - Final Staphylococcus aureus 11/16/19 10:04 Blood Blood Culture - Preliminary Staphylococcus aureus 11/13/19 11:08 Blood Blood Culture - Final Staphylococcus aureus 11/15/19 08:11 Blood Blood Culture - Preliminary Staphylococcus aureus 11/15/19 08:09 Blood Blood Culture - Preliminary Staphylococcus aureus 11/14/19 11:33 Blood Blood Culture - Final Staphylococcus aureus 11/13/19 11:20 Blood Blood Culture - Final Staphylococcus aureus 11/15/19 09:14 Nasopharynx Respiratory Panel (PCR) - Final 11/15/19 09:14 Nasopharynx Respiratory Virus Panel (PCR) - Final 11/15/19 11:08 Nose - Both Right and Left MRSA (PCR) - Final 11/13/19 11:09 Foot - Left Gram Stain - Final 11/13/19 11:09 Foot - Left Wound Culture - Final Staphylococcus aureus 11/14/19 05:45 Stool C. difficile GDH Antigen & Toxins - Final Assessment and Plan - Narrative A/P Narrative: A: 1. Complicated MSSA bacteremia: has multiple positive blood cultures since 11/12-11/15. Cx neg since 11/16 -Likely sources is scabbed wounds and right foot infected ulcers over his extremities, which grew MSSA as well -Septic shock secondary to bacteremia: now resolved -Needs 1 major and one minor of modified Arce's criteria for possible endocard itis -TTE negative inpatient x1 2. Type 2 diabetes with peripheral neuropathy 3. IBS/gastroparesis Recommendations: Continue IV cefazolin 2 g every 8 hours. Counting from 11/17/19, day 4 of ant ibiotic therapy - will plan for at least 4 weeks of IV Cefazolin with tentative stop date of 12/15/2019. CADD pump could not be arranged as [facility] pharmacy can not lend its CADD pump to rust and [facility] doesnot have CADD pump - leg elevation, wt offloading and wound care. Dr Manuel on board - schedule outpatient [facility] - F/u in ID clinic in 4 weeks. Follow up labs: CBC, BMP weekly; ESR and CRP every other week Maulik Lofton MD Infectious disease
[2019-11-21 15:27] LABS: Opiate Confirmation POSITIVE (N)
== END 2019-11-20 13:45 | disposition home or self-care (01) | DRG 871 ==
LOC: ED 09:54 → ICU 14:45 → MEDSUR 11-17 18:02
PROVIDERS: ADMIT Internal Medicine; ATTEND Internal Medicine

== ENCOUNTER 2019-12-16 16:44 | Inpatient (IN) ==
[2019-12-16 17:48] LABS: Basophils # (Auto) 0.08 K/mcL (0.00-0.30); Basophils % (Auto) 1.4 % (0.0-2.0); Eosinophils # (Auto) 0.69 K/mcL (0.00-0.70); Granulocytes % (Auto) 54.5 % (38.0-78.0); Hematocrit 35.2 % (40.1-51.0); Hemoglobin 11.4 g/dL (13.7-17.5); Lymphocytes # (Auto) 1.21 K/mcL (1.50-4.80); Mean Cell Volume 85.2 fL (80.0-100.0); Mean Corpuscular HGB Conc 32.4 g/dL (31.0-36.0); Monocytes # (Auto) 0.64 K/mcL (0.10-0.90); Monocytes % (Auto) 11.1 % (1.0-12.0); Platelet Count 337 K/mcL (140-440); RBC 4.13 M/mcL (4.63-6.08); Red Cell Distribution Width 13.9 % (11.5-14.5); WBC 5.8 K/mcL (4.50-11.00)
[2019-12-16 18:06] LABS: Hemoglobin A1C 6.8 % HGB (4.0-6.0)
[2019-12-16 18:13] LABS: ALT/SGPT 17 U/l (0-40); AST/SGOT 21 U/l (0-37); Albumin/Globulin Ratio 0.8 (1.0-2.3); Alkaline Phosphatase 52 U/L (39-117); Bilirubin,Total 0.3 mg/dL (0.0-1.0); Blood Urea Nitrogen 20 mg/dl (6-20); Calcium 9.6 mg/dl (8.6-10.4); Carbon Dioxide 22 mmol/L (22-30); Chloride 97 mmol/L (96-108); Globulin 4.9 gm/dL (2.2-3.7); Glomerular Filtration Rate 106; Glucose 183 mg/dL (70-105)
--- NOTE | 2019-12-16 19:12 | Emergency Department Note ---
Lower Extremity Injury HPI - General Chief Complaint: Extremity Injury, Lower Stated Complaint: right foot surgery tomorrow, sent by Dr. Lofton Time Seen by Provider: 12/16/19 16:45 Source: patient Mode of arrival: wheelchair Limitations: no limitations - History of Present Illness HPI Narrative: 39-year-old diabetic male comes in at the request of Dr. Lofton, infectious disease specialist. Apparently he had a CT scan of the right foot 2 days ago which showed osteomyelitis and a small abscess. He has a known Charcot foot with diabetic neuropathy to his ankle. Anyways on daptomycin IV once a day and he did take his dose today. Dr. Lofton sent him over because he needs surgical care to drain that abscess and treat that osteomyelitis as an inpatient. He does not have a fever. No chest pain. He cannot feel his foot. I discussed the case twice with Dr. Lofton - Related Data Home Medications Medication Instructions Recorded Confirmed empagliflozin 25 mg tablet 25 mg PO QHS 05/28/16 12/16/19 hydrocodone 10 mg-acetaminophen 2 tab PO QID PRN tab 05/28/16 12/16/19 325 mg tablet levothyroxine 175 mcg tablet 175 mcg PO QDAY 05/28/16 12/16/19 pregabalin 200 mg capsule 200 mg PO BID cap 05/28/16 12/16/19 Fenofibrate 54 mg PO QHS 11/14/19 12/16/19 diphenoxylate-atropine 2.5 1 tab PO QDAY PRN tab 12/11/19 12/16/19 mg-0.025 mg tablet glipizide 10 mg tablet 5 mg PO BID tab 12/11/19 12/16/19 hydrochlorothiazide 25 mg tablet 12.5 mg PO QDAY PRN tab 12/11/19 12/16/19 insulin NPH isoph U-100 human 100 1 unit SUB-Q DAILY 12/11/19 12/16/19 unit/mL (3 mL) subcutaneous pen meloxicam 15 mg tablet 15 mg PO QDAY tab 12/11/19 12/16/19 metformin 500 mg tablet,extended 1,000 mg PO QDAY tab 12/11/19 12/16/19 release 24 hr methocarbamol 750 mg tablet 750 mg PO Q8HP PRN tab 12/11/19 12/16/19 0.9 % Sodium Chloride [Saline 10 ml IV DAILY 12/16/19 12/16/19 Flush] Atorvastatin [Lipitor] 10 mg PO HS 12/16/19 12/16/19 DAPTOmycin [Daptomycin] 1,000 mg IV DAILY 12/16/19 12/16/19 Heparin Flush [Heparin 10 Units/ml 5 ml IV DAILY 12/16/19 12/16/19 Flush] diphenhydrAMINE [Benadryl] 25 mg PO Q4-6HP PRN 12/16/19 12/16/19 oxyCODONE HCL [Oxycodone HCl] 5 mg PO Q8HP PRN 12/16/19 12/16/19 Previous Rx's Medication Instructions Recorded Losartan [Cozaar] 25 mg PO QAM #1 tab 11/19/19 daptomycin 500 mg intravenous 1,000 mg IV Q24H #17 each 12/13/19 solution Allergies Allergy/AdvReac Type Severity Reaction Status Date / Time cefazolin AdvReac Intermediate Rash Verified 12/11/19 15:59 Review of Systems All systems ED: reviewed and negative except as stated. Past Medical History - Past Medical History Attestation: Yes: The following information was validated with the patient. [facility] Narrative: Family History (Last Reviewed 12/11/19 @ 16:31 by Lisa Young RN) Other Cancer Diabetes Hypertension No pertinent family history Past Surgical History (Last Reviewed 12/11/19 @ 16:31 by Lisa Young RN) History of back surgery (Acute) History of surgery (Acute) No pertinent past surgical history (Acute) S/P carpal tunnel release (Acute) Medical History (Last Reviewed 12/11/19 @ 16:31 by Lisa Young RN) Encounter for long-term current use of high risk medication (Acute) Carpal tunnel syndrome (Chronic) Inflammatory arthropathy (Suspected) Back pain (Chronic) Paresthesia and pain of both upper extremities (Acute) Abnormal immunological finding in serum (Chronic) Inflammatory arthritis (Suspected) Acquired hallux varus of left foot (Chronic) Hypertension (Chronic) Polyneuropathy (Chronic) Onychomycosis (Chronic) Angioedema (Chronic) Chronic back pain (Chronic) Hypothyroidism (Chronic) Type II diabetes mellitus (Chronic) Hammertoe (Chronic) Hypocalcemia (Chronic) Abnormal liver enzymes (Chronic) Hypoalphalipoproteinemia (Chronic) Hypertriglyceridemia (Chronic) Morbid obesity (Chronic) Surgical history ED: Reports: orthopedic, other (foot sx) - Social History smoking status: Former smoker Alcohol use: Reports: Rarely Drug use: Reports: none Physical Exam No acute distress resting comfortably. Normocephalic atraumatic. Conjunctive are clear sclerae white nonicteric. No nasal discharge or congestion. Oropharynx is pink and moist. Heart is regular rate and rhythm no murmur appreciated. Lungs are clear to auscultation bilaterally without wheezes rales rhonchi or respiratory distress. Exam of the right foot shows superficial ulceration on the dorsum about the size of a quarter. There is some eschar to around the base of the great toe. The ankle is quite edematous. He does not appear to have any sensation from the ankle down to light pressure or touch. Limitations: no limitations Course Vital Signs Temperature 97.5 F 12/16/19 16:44 Pulse Rate 102 H 12/16/19 16:44 Respiratory Rate 20 12/16/19 16:44 Blood Pressure 135/86 12/16/19 16:44 Pulse Oximetry (%) 96 12/16/19 16:44 Temperature 97.6 F 12/16/19 23:37 Pulse Rate 90 12/16/19 23:37 Respiratory Rate 18 12/16/19 23:37 Blood Pressure 137/73 12/16/19 23:37 Pulse Oximetry (%) 97 12/16/19 23:37 Extremity Injury, Lower - Lab Data Lab results reviewed: Yes I reviewed the patient's lab results. Result diagrams: 12/16/19 16:56 12/16/19 16:56 Lab Results 12/16/19 12/16/19 12/16/19 Range/Units 16:56 16:56 16:56 WBC 5.8 (4.50-11.00) K/mcL RBC 4.13 L (4.63-6.08) M/mcL Hgb 11.4 L (13.7-17.5) g/dL Hct 35.2 L (40.1-51.0) % MCV 85.2 (80.0-100.0) fL MCH 27.6 (26.0-34.0) pg MCHC 32.4 (31.0-36.0) g/dL RDW 13.9 (11.5-14.5) % Plt Count 337 (140-440) K/mcL MPV 10.0 (7.4-10.4) fL Gran % 54.5 (38.0-78.0) % Lymph % (Auto) 21.0 (15.5-49.0) % [place] % (Auto) 11.1 (1.0-12.0) % Eos % (Auto) 12.0 H (0.0-7.0) % Baso % (Auto) 1.4 (0.0-2.0) % Gran # 3.14 (1.80-8.00) K/mcL Lymph # (Auto) 1.21 L (1.50-4.80) K/mcL [place] # (Auto) 0.64 (0.10-0.90) K/mcL Eos # (Auto) 0.69 (0.00-0.70) K/mcL Baso # (Auto) 0.08 (0.00-0.30) K/mcL VBG Lactic Acid 2.4 H (0.5-2.0) mmol/L Sodium 135 (133-145) mmol/L Potassium 4.2 (3.3-5.1) mmol/L Chloride 97 (96-108) mmol/L Carbon Dioxide 22 (22-30) mmol/L Anion Gap 16.0 (8-16) BUN 20 (6-20) mg/dl Creatinine 0.9 (0.7-1.2) mg/dl GFR Calculation 106 Glucose 183 H (70-105) mg/dL Hemoglobin A1c (4.0-6.0) % HGB Estim Average Glucose mg/dL Calcium 9.6 (8.6-10.4) mg/dl Total Bilirubin 0.3 (0.0-1.0) mg/dL AST 21 (0-37) U/l ALT 17 (0-40) U/l Alkaline Phosphatase 52 (39-117) U/L Total Protein 8.9 H (5.9-8.4) gm/dL Albumin 4.0 (3.2-5.2) gm/dL Globulin 4.9 H (2.2-3.7) gm/dL Albumin/Globulin Ratio 0.8 L (1.0-2.3) Procalcitonin (<0.10) ng/mL 12/16/19 12/16/19 Range/Units 16:56 16:56 WBC (4.50-11.00) K/mcL RBC (4.63-6.08) M/mcL Hgb (13.7-17.5) g/dL Hct (40.1-51.0) % MCV (80.0-100.0) fL MCH (26.0-34.0) pg MCHC (31.0-36.0) g/dL RDW (11.5-14.5) % Plt Count (140-440) K/mcL MPV (7.4-10.4) fL Gran % (38.0-78.0) % Lymph % (Auto) (15.5-49.0) % [place] % (Auto) (1.0-12.0) % Eos % (Auto) (0.0-7.0) % Baso % (Auto) (0.0-2.0) % Gran # (1.80-8.00) K/mcL Lymph # (Auto) (1.50-4.80) K/mcL [place] # (Auto) (0.10-0.90) K/mcL Eos # (Auto) (0.00-0.70) K/mcL Baso # (Auto) (0.00-0.30) K/mcL VBG Lactic Acid (0.5-2.0) mmol/L Sodium (133-145) mmol/L Potassium (3.3-5.1) mmol/L Chloride (96-108) mmol/L Carbon Dioxide (22-30) mmol/L Anion Gap (8-16) BUN (6-20) mg/dl Creatinine (0.7-1.2) mg/dl GFR Calculation Glucose (70-105) mg/dL Hemoglobin A1c 6.8 H (4.0-6.0) % HGB Estim Average Glucose 148 mg/dL Calcium (8.6-10.4) mg/dl Total Bilirubin (0.0-1.0) mg/dL AST (0-37) U/l ALT (0-40) U/l Alkaline Phosphatase (39-117) U/L Total Protein (5.9-8.4) gm/dL Albumin (3.2-5.2) gm/dL Globulin (2.2-3.7) gm/dL Albumin/Globulin Ratio (1.0-2.3) Procalcitonin 0.27 (<0.10) ng/mL - Radiology Data Radiology results reviewed: Yes I reviewed the patient's radiology results. I reviewed the CT scan from 12/14/2019 which shows Charcot foot with small absce ss and osteomyelitis. See full report Disposition Pt seen by FMD TEACHER/PA only: No Clinical Impression: Abscess Osteomyelitis Qualifiers: Osteomyelitis type: unspecified type Osteomyelitis location: foot Laterality: right Qualified Code(s): M86.9 - Osteomyelitis, unspecified Type II diabetes mellitus Qualifiers: Diabetes mellitus half-way insulin use: with ferry terminal agent use Diabetes mellitus complication status: with neurologic complications Diabetes mellitus complication detail: with polyneuropathy Qualified Code(s): E11.42 - Type 2 diabetes mellitus with diabetic polyneuropathy Summary: After getting his labs back I briefly discussed the case with Dr. Hyatt, our hospitalist, who agreed except the patient for further care and evaluation in the hospital. Dr. Lofton, infectious disease specialist will be consulted. We will continue the daptomycin via PICC line. Dr. Robert House will be consulted for urgent surgery for abscess drainage Disposition: Xfer As Inpt ([facility]) Condition: Fair
[2019-12-16] MEDS ORDERED: ONDANSETRON 4 MG ODT TABLET SL PRN (19:41)
[2019-12-16] MEDS ORDERED: DEXTROSE 50% 50 ML VIAL IV PRN ×2 (19:41→20:55)
[2019-12-16] MEDS ORDERED: ACETAMINOPHEN 325 MG TABLET PO PRN ×2 (19:41→20:55)
[2019-12-16] MEDS ORDERED: morphine 4 MG/ML VIAL IV PRN ×2 (19:41→20:55)
[2019-12-16] MEDS ORDERED: DEXTROSE 31 GM ORAL.SUSP PO PRN ×2 (19:41→20:55)
[2019-12-16] MEDS ORDERED: ONDANSETRON 4 MG/2 ML VIAL IV PRN ×2 (19:41→20:55)
[2019-12-16] MEDS ORDERED: 0.9 % SODIUM CHLORIDE 1,000 ML IV SCH ×2 (19:45→20:55)
[2019-12-16] MEDS ORDERED: traMADol 50 MG TABLET PO PRN ×2 (19:55→20:55)
[2019-12-16] MEDS ORDERED: HYDROCHLOROTHIAZIDE 25 MG TABLET PO PRN ×2 (19:58→20:55)
[2019-12-16] MEDS ORDERED: DAPTOmycin 500 MG VIAL IV SCH (20:00)
--- NOTE | 2019-12-16 20:20 | Internal Med History&Physical ---
Medical - H&P: [facility] Patient information: Note initiated : 12/16/19 at 8:05 pm Service Date, if different from initiated Date: [] Patient: Ahmet Zelaya 39 y/o M admitted on for right foot surgery tomorrow, sent by Dr. Lofton. Chief Complaint: [right foot cellulitis/abscess/osteomyelitis] History of present illness: Mr. Zelaya is a 39 year old M with a history of hypotension, diabetes, and right foot ulcer who was referred to the ER by ID Dr. Lofton. As per patient, he has been having right foot ulcer for about to 25 days. He was found to have right foot abscess and osteomyelitis. Dr. Lofton has discussed with podiatry Dr. House who has scheduled surgical intervention tomorrow. When I saw this patient in the ER, he did not have any complaints. He does not feel much pain from the foot ulcer because he has diabetic neuropathy. He denied headache, dizziness, chest pain, shortness of breath, fever, chills, nausea, vomiting, abdominal pain, or dysuria. No recent travel or sick contact. Patient was admitted to our hospital on 11/13/19 due to Septic shock 2nd to MSSA Bacteremia and right foot cellulitis. Review of systems: Positive for right foot pain. All other systems were reviewed and are negative. Medical - H&P: PMH Family history: reviewed and not pertinent (Mother has high cholesterol; father has high blood pressure) Smoking status: Former smoker Have you smoked in the last 12 months: No Drug use: none Alcohol use: none Medical - H&P: Meds Home Medications Medication Instructions Recorded Confirmed Type empagliflozin 25 mg tablet 25 mg PO QHS 05/28/16 12/16/19 History hydrocodone 10 mg-acetaminophen 2 tab PO QID PRN tab 05/28/16 12/16/19 History 325 mg tablet levothyroxine 175 mcg tablet 175 mcg PO QDAY 05/28/16 12/16/19 History pregabalin 200 mg capsule 200 mg PO BID cap 05/28/16 12/16/19 History oxycodone-acetaminophen 5 mg-325 1 tab PO Q6H #10 tab 02/17/18 12/16/19 Rx mg tablet Fenofibrate 54 mg PO QHS 11/14/19 12/16/19 History Losartan [Cozaar] 25 mg PO QAM #1 tab 11/19/19 12/16/19 Rx Cetirizine HCl [Zyrtec] 10 mg PO BID #30 cap 11/23/19 12/16/19 Rx Cimetidine 300 mg PO BID #30 tab 11/23/19 12/16/19 Rx atorvastatin 10 mg tablet 10 mg PO QHS tab 12/11/19 12/16/19 History diphenoxylate-atropine 2.5 1 tab PO QDAY PRN tab 12/11/19 12/16/19 History mg-0.025 mg tablet glipizide 10 mg tablet 5 mg PO BID tab 12/11/19 12/16/19 History hydrochlorothiazide 25 mg tablet 12.5 mg PO QDAY PRN tab 12/11/19 12/16/19 History insulin NPH isoph U-100 human 100 1 unit SUB-Q DAILY 12/11/19 12/16/19 History unit/mL (3 mL) subcutaneous pen meloxicam 15 mg tablet 15 mg PO QDAY tab 12/11/19 12/16/19 History metformin 500 mg tablet,extended 1,000 mg PO QDAY tab 12/11/19 12/16/19 History release 24 hr methocarbamol 750 mg tablet 750 mg PO TID PRN tab 12/11/19 12/16/19 History daptomycin 500 mg intravenous 1,000 mg IV Q24H #17 each 12/13/19 12/16/19 Rx solution Allergies Allergy/AdvReac Type Severity Reaction Status Date / Time cefazolin AdvReac Intermediate Rash Verified 12/11/19 15:59 Medical - H&P: Exam - Constitutional Vitals: Temp Pulse Resp BP Pulse Ox 97.5 F 100 H 20 126/83 99 12/16/19 16:44 12/16/19 19:36 12/16/19 19:36 12/16/19 19:36 12/16/19 19:36 - Other Additional findings: General - No acute distress Eyes - PERRLA, EOM intact ENT no rhinorrhea, no noticeable or palpable swelling, no redness or rash around throat or on face Neck supple, no JVD, no thyromegaly Respiratory: Lungs -clear, no wheezing or crackles. Cardiovascular - RRR no m/r/g, GI - Normal bowel sounds, no distended, soft. Extremeties - No edema, cyanosis or clubbing. A ulcer (1x1 cm) is noted over the dorsal aspect of right first metatarsophalangeal joint, surrounding skin erythema. Inner aspect of right foot erythema and edema. 2 small ulcers are noted over the plantar aspect of left first metatarsophalangeal joint. Bases of ulcers are dry. Hemo/lymphatic/immune no lymphadenopathy Neurological Alert and oriented x 3, reduced light touch sensation over feet. Psychiatry flat affect Medical - H&P: Reslt - Labs CBC & Chem 7: 12/16/19 16:56 12/16/19 16:56 Labs: Short CBC 12/16/19 Range/Units 16:56 WBC 5.8 (4.50-11.00) K/mcL Hgb 11.4 L (13.7-17.5) g/dL Hct 35.2 L (40.1-51.0) % Plt Count 337 (140-440) K/mcL BMP 12/16/19 16:56 Sodium 135 Potassium 4.2 Chloride 97 Carbon Dioxide 22 BUN 20 Creatinine 0.9 Glucose 183 H Calcium 9.6 Liver Function 12/16/19 Range/Units 16:56 Total Bilirubin 0.3 (0.0-1.0) mg/dL AST 21 (0-37) U/l ALT 17 (0-40) U/l Alkaline Phosphatase 52 (39-117) U/L Albumin 4.0 (3.2-5.2) gm/dL Medical - H&P: A/P - Narrative A/P Narrative: Assessment: 1. Early sepsis 2nd to right foot cellulitis and osteomyelitis 2. Right foot ulceration/cellulitis L03.115 and abscess L02.91 3. Osteomyelitis of foot cuboid, right M86.9 4. Left foot ulceration L97.529 5. Uncontrolled DM type E11.9 6. DM polyneuropathy E11.42 7. HTN Plan: 1. Early sepsis secondary to right foot cellulitis and abscess. 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 Lower Ex CT on 12/13 showed Abscess along the superior lateral aspect of the midfoot with probable osteomyelitis of the adjacent cuboid As per ID Dr. Lofton, daptomycin 1000 mg every 24 hours (allergic to cefazolin) Podiatry Dr. House was consulted, who will give surgical intervention tomorrow. NPO after midnight IV fluid Wound culture Wound care Pain management including IV morphine ESR, CRP 3. Diabetic diet Hemoglobin A1c 6.8 Continue home diabetic meds empagliflozin and glipzide. Metformin is on hold Insulin ss Adjust based on BG levels 4. Continue home HCTZ 12.5 mg daily and losartan 25 mg daily for blood pressure 5. DVT prophylaxis: No pharmacological DVT prophylaxis due to procedure tomorrow. 6. CODE STATUS: Full.
[2019-12-16] MEDS ORDERED: 0.9 % SODIUM CHLORIDE 10 ML SYRINGE IV PRN (20:56)
[2019-12-16] MEDS ORDERED: EMPAGLIFLOZIN 25 MG PO SCH (21:00)
[2019-12-16] MEDS ORDERED: Empagliflozin [Jardiance] 25 MG PO SCH (21:00)
[2019-12-16] MEDS ORDERED: ATORVASTATIN 10 MG PO SCH ×2 (21:00)
[2019-12-16] MEDS ORDERED: FENOFIBRATE 54 MG TABLET PO SCH ×2 (21:00)
[2019-12-16] MEDS ORDERED: GLIPIZIDE 5 MG PO SCH ×2 (21:00)
[2019-12-16] MEDS ORDERED: CIMETIDINE 300 MG PO SCH ×2 (21:00)
[2019-12-16] MEDS ORDERED: DOCUSATE SODIUM 100 MG CAPSULE PO SCH (21:00)
[2019-12-16] MEDS ORDERED: INSULIN LISPRO 1 UNIT/0.01 ML UNIT SQ SCH (21:00)
--- NOTE | 2019-12-16 21:02 | Orthopedic Consult Note ---
History of Present Illness - [facility] Patient information: Note initiated : 12/16/19 at 8:58 pm Service Date, if different from initiated Date: [] Patient: Ahmet Zelaya 39 y/o M admitted on 12/16/19 for right foot surgery tomorrow, sent by Dr. Lofton. Chief Complaint: [right foot cellulitis] Consult date: 12/16/19 Requesting physician: Rola Hyatt Consult reason: other (right foot cellulitus) History of present illness: 39-year-old male with a long-standing history of Charcot to the right foot. He has had ulcerations of his foot and extensive surgery approximately 2 years ago. Currently the ulcerations on the plantar aspect of the foot are well-maintained bilaterally by patient's shoe gear modifications. Approximately 1 month ago he suffered from a seemingly random increase in swelling seen in the right foot in the absence of ulcerations. Since then he has been treated with intravenous antibiotic therapy and wound care for a dorsal ulceration first metatarsal phalangeal joint of the right foot. A CT scan was performed on the right foot which revealed a lateral abscess on the calcaneal cuboid articulation. There is some question regarding osteomyelitis/Charcot and therefore he was admitted this evening for surgical incision and drainage and obtaining a biopsy for possible alteration of therapy. Review of Systems Constitutional: as per [facility] Medications and Allergies Home Medications Medication Instructions Recorded Confirmed Type empagliflozin 25 mg tablet 25 mg PO QHS 05/28/16 12/16/19 History hydrocodone 10 mg-acetaminophen 2 tab PO QID PRN tab 05/28/16 12/16/19 History 325 mg tablet levothyroxine 175 mcg tablet 175 mcg PO QDAY 05/28/16 12/16/19 History pregabalin 200 mg capsule 200 mg PO BID cap 05/28/16 12/16/19 History oxycodone-acetaminophen 5 mg-325 1 tab PO Q6H #10 tab 02/17/18 12/16/19 Rx mg tablet Fenofibrate 54 mg PO QHS 11/14/19 12/16/19 History Losartan [Cozaar] 25 mg PO QAM #1 tab 11/19/19 12/16/19 Rx Cetirizine HCl [Zyrtec] 10 mg PO BID #30 cap 11/23/19 12/16/19 Rx Cimetidine 300 mg PO BID #30 tab 11/23/19 12/16/19 Rx atorvastatin 10 mg tablet 10 mg PO QHS tab 12/11/19 12/16/19 History diphenoxylate-atropine 2.5 1 tab PO QDAY PRN tab 12/11/19 12/16/19 History mg-0.025 mg tablet glipizide 10 mg tablet 5 mg PO BID tab 12/11/19 12/16/19 History hydrochlorothiazide 25 mg tablet 12.5 mg PO QDAY PRN tab 12/11/19 12/16/19 History insulin NPH isoph U-100 human 100 1 unit SUB-Q DAILY 12/11/19 12/16/19 History unit/mL (3 mL) subcutaneous pen meloxicam 15 mg tablet 15 mg PO QDAY tab 12/11/19 12/16/19 History metformin 500 mg tablet,extended 1,000 mg PO QDAY tab 12/11/19 12/16/19 History release 24 hr methocarbamol 750 mg tablet 750 mg PO TID PRN tab 12/11/19 12/16/19 History daptomycin 500 mg intravenous 1,000 mg IV Q24H #17 each 12/13/19 12/16/19 Rx solution Allergies Allergy/AdvReac Type Severity Reaction Status Date / Time cefazolin AdvReac Intermediate Rash Verified 12/11/19 15:59 Physical Examination - Ankle & Foot right Foot appearance: swelling, erythema, other ( Streaking erythema medial aspect of foot. Superficial ulceration with eschar first m etatarsophalangeal joint dorsal aspect right foot. Foot is moderately erythematous.) Foot swelling: other Assessment and Plan (1) Abscess Status: Acute - Narrative A/P Narrative: Heart; S1, S2, no murmur present Lungs; clear to auscultation bilaterally, clear to percussion bilaterally. Plan: incision and drainage right foot with bone biopsy.
[2019-12-16] MEDS ORDERED: oxyCODONE HCL 5 MG TABLET PO PRN (21:31)
[2019-12-16] MEDS ORDERED: 0.9 % SODIUM CHLORIDE 10 ML SYRINGE IV SCH ×2 (22:00)
[2019-12-16] MEDS: DOCUSATE SODIUM 100 MG CAPSULE PO SCH (22:27)
[2019-12-16] MEDS: INSULIN LISPRO 1 UNIT/0.01 ML UNIT SQ SCH (22:31)
[2019-12-16] MEDS: 0.9 % SODIUM CHLORIDE 10 ML SYRINGE IV SCH (22:32)
[2019-12-16] MEDS ORDERED: INSULIN LISPRO 1 UNIT/0.01 ML UNIT SQ ONE (22:33)
[2019-12-17] MEDS ORDERED: oxyCODONE HCL 5 MG TABLET PO ONE (04:11)
[2019-12-17] MEDS ORDERED: morphine 2 MG/ML VIAL ONE (06:03)
[2019-12-17] MEDS ORDERED: SCOPOLAMINE 1 PATCH PATCH TOPICAL PRN (07:00)
[2019-12-17] MEDS ORDERED: IPRATROPIUM/ALBUTEROL 3 ML AMPUL.NEB NEB PRN (07:00)
[2019-12-17] MEDS ORDERED: LEVOTHYROXINE 25 MCG TABLET PO SCH (07:30)
[2019-12-17] MEDS ORDERED: LEVOTHYROXINE 150 MCG TABLET PO SCH (07:30)
[2019-12-17] MEDS ORDERED: glipiZIDE 5 MG TABLET PO SCH (07:30)
[2019-12-17] MEDS: INSULIN LISPRO 1 UNIT/0.01 ML UNIT SQ SCH ×2 (07:34→13:36)
[2019-12-17 08:16] LABS: Basophils # (Auto) 0.05 K/mcL (0.00-0.30); Basophils % (Auto) 1.1 % (0.0-2.0); Eosinophils # (Auto) 0.52 K/mcL (0.00-0.70); Eosinophils % (Auto) 11.7 % (0.0-7.0); Granulocytes % (Auto) 52.6 % (38.0-78.0); Hematocrit 32.5 % (40.1-51.0); Hemoglobin 10.3 g/dL (13.7-17.5); Lymphocytes # (Auto) 0.98 K/mcL (1.50-4.80); Mean Cell Volume 86.4 fL (80.0-100.0); Mean Corpuscular HGB Conc 31.7 g/dL (31.0-36.0); Mean Platelet Volume 10.4 fL (7.4-10.4); Monocytes # (Auto) 0.56 K/mcL (0.10-0.90); Monocytes % (Auto) 12.6 % (1.0-12.0); Platelet Count 306 K/mcL (140-440); RBC 3.76 M/mcL (4.63-6.08); Red Cell Distribution Width 13.9 % (11.5-14.5); WBC 4.5 K/mcL (4.50-11.00)
[2019-12-17 08:28] LABS: proBNP 106.1 pg/ml (0-125)
--- NOTE | 2019-12-17 08:30 | Internal Med Progress Note ---
Medical - PN: Subj Patient information: Note initiated : 12/17/19 at 8:27 am Service Date, if different from initiated Date: [] Patient: Ahmet Zelaya 39 y/o M admitted on 12/16/19 for right foot surgery tomorrow, sent by Dr. Lofton. Chief Complaint: [] Interval history: Mr. Zelaya is a 39 year old M with a history of hypotension, diabetes, and right foot ulcer who was referred to the ER by ID Dr. Lofton. As per patient, he has been having right foot ulcer for about to 25 days. He was found to have right foot abscess and osteomyelitis. Dr. Lofton has discussed with podiatry Dr. House who has scheduled surgical intervention tomorrow. When I saw this patient in the ER, he did not have any complaints. He does not feel much pain from the foot ulcer because he has diabetic neuropathy. He denied headache, dizziness, chest pain, shortness of breath, fever, chills, nausea, vomiting, abdominal pain, or dysuria. No recent travel or sick contact. Patient was admitted to our hospital on 11/13/19 due to Septic shock 2nd to MSSA Bacteremia and right foot cellulitis. 12/16 Patient does not have any new complaints. Denies fever, chills, nausea or vomiting. She will have surgical intervention today by podiatry Dr. House. Vital signs are stable and acceptable She is on n.p.o and not on pharmacological DVT prophylaxis because of surgery today. Review of systems: Positive for right foot pain. All other systems were reviewed and are negative. - Constitutional Vitals: Vital Signs Temp Pulse Resp BP Pulse Ox 98.4 F 90 20 121/74 96 12/17/19 07:48 12/17/19 07:48 12/17/19 07:48 12/17/19 07:48 12/17/19 07:48 Period Temp Pulse Resp BP Sys/Bradford Pulse Ox Last 24 Hr 97.5 F-98.4 F 85-102 18- 117-137/68-86 95-99 Intake and Output 12/16/19 12/17/19 12/17/19 21:59 05:59 13:59 Intake Total 240 Output Total 425 Balance 240 -425 Weight 141.691 kg Intake & Output: Intake & Output 12/16/19 12/17/1920 21:59 05:59 13:59 Intake Total 240 Output Total 425 Balance 240 -425 Weight 141.691 kg Intake: Oral 240 Output: Void Amount 425 Other: # Voids 2 - Additional findings Additional findings: General - No acute distress Eyes - PERRLA, EOM intact ENT no rhinorrhea, no noticeable or palpable swelling, no redness or rash around throat or on face Neck supple, no JVD, no thyromegaly Respiratory: Lungs -clear, no wheezing or crackles. Cardiovascular - RRR no m/r/g, GI - Normal bowel sounds, no distended, soft. Extremeties - No edema, cyanosis or clubbing. A ulcer (1x1 cm) is noted over the dorsal aspect of right first metatarsophalangeal joint, surrounding skin erythema. Inner aspect of right foot erythema and edema. 2 small ulcers are noted over the plantar aspect of left first metatarsophalangeal joint. Bases of ulcers are dry. Hemo/lymphatic/immune no lymphadenopathy Neurological Alert and oriented x 3, reduced light touch sensation over feet. Psychiatry flat affect Medical - PN: Obj Da - Labs CBC & Chem 7: 12/17/19 04:34 12/17/19 04:34 Labs: Abnormal Lab Results 12/17/19 12/16/19 12/16/19 04:34 16:56 16:56 RBC 3.76 L Hgb 10.3 L Hct 32.5 L Henderson % (Auto) 12.6 H Eos % (Auto) 11.7 H Lymph # (Auto) 0.98 L VBG Lactic Acid 2.4 H Glucose Hemoglobin A1c 6.8 H Total Protein Globulin Albumin/Globulin Ratio 12/16/19 12/16/19 16:56 16:56 RBC 4.13 L Hgb 11.4 L Hct 35.2 L Henderson % (Auto) Eos % (Auto) 12.0 H Lymph # (Auto) 1.21 L VBG Lactic Acid Glucose 183 H Hemoglobin A1c Total Protein 8.9 H Globulin 4.9 H Albumin/Globulin Ratio 0.8 L Meds: Medications Acetaminophen (Tylenol) 650 mg PO Q6HP PRN; Protocol PRN Reason: Per Pain Protocol/Fever > 101 Last Admin: 12/17/19 07:23 Dose: 650 mg Documented by: Albuterol/Ipratropium (Duoneb) 3 ml NEB ONCE PRN PRN Reason: Shortness Of Breath Stop: 12/17/19 23:59 Atorvastatin Calcium (Lipitor) 10 mg PO QHS [facility] Daptomycin (Cubicin) 1,000 mg IV Q24H [facility]; Protocol Dextrose (Dextrose 50%) 0 ml IV UD PRN PRN Reason: Hypoglycemia Diagnostic Test (Pha) (Accu-Chek) 1 each FS ACHS [facility] Last Admin: 12/17/19 07:27 Dose: 1 each Documented by: Docusate Sodium (Colace) 100 mg PO BID [facility] Last Admin: 12/16/19 22:27 Dose: Not Given Documented by: Fenofibrate (Antara) 43 mg PO QHS [facility] Glipizide (Glucotrol) 5 mg PO BIDAC [facility] Last Admin: 12/17/19 07:25 Dose: 5 mg Documented by: Glucose (Insta-Glucose) 15 gm PO PRN PRN PRN Reason: Hypoglycemia Heparin Sodium (Porcine) (Heparin 10 Units/Ml Flush) 2 ml IV Q12 [facility] Last Admin: 12/16/19 22:28 Dose: Not Given Documented by: Hydrochlorothiazide (Oretic) 12.5 mg PO QDAY PRN PRN Reason: Blood Pressure Sodium Chloride (Sodium Chloride 0.9%) 1,000 mls @ 100 mls/hr IV .Q10H [facility] Last Admin: 12/16/19 22:25 Dose: 100 mls/hr Documented by: Insulin Human Lispro (Humalog) 0 unit SQ [facility]; Protocol Last Admin: 12/17/19 07:34 Dose: 2 units Documented by: Levothyroxine Sodium (Synthroid) 150 mcg [facility] Last Admin: 12/17/19 07:25 Dose: 150 mcg Documented by: Levothyroxine Sodium (Synthroid) 25 mcg PO QAMAC [facility] Last Admin: 12/17/19 07:24 Dose: 25 mcg Documented by: Losartan Potassium (Cozaar) 25 mg PO QAM [facility] Morphine Sulfate (Morphine) 2 mg IV Q4HP PRN; Protocol PRN Reason: Per Pain Protocol Non-Formulary Medication (Cimetidine) 300 mg PO BID [facility] Last Admin: 12/16/19 22:27 Dose: Not Given Documented by: Empagliflozin [ (Jardiance] 25 Mg) 25 mg PO QHS [facility] Last Admin: 12/16/19 22:28 Dose: Not Given Documented by: Ondansetron HCl (Zofran) 4 mg IV Q6HP PRN PRN Reason: Nausea And Vomiting Oxycodone HCl (Roxicodone) 5 mg PO Q8HP PRN; Protocol PRN Reason: Pain Scopolamine (Transderm-Scop) 1 patch TOPICAL PREOP PRN PRN Reason: Nausea And Vomiting Stop: 12/17/19 23:59 Sodium Chloride (Saline Flush) 10 ml IV UD PRN PRN Reason: FLUSH Sodium Chloride (Saline Flush) 10 ml IV Q12 [facility] Last Admin: 12/16/19 22:32 Dose: 10 ml Documented by: Medical - PN: A/P - Time Spent With Patient Total time spent is greater than 50% in coordination of care (as documented) at patient's floor/unit and/or counseling patient: - Narrative A/P Narrative: Assessment: 1. Early sepsis 2nd to right foot cellulitis and osteomyelitis 2. Right foot ulceration/cellulitis L03.115 and abscess L02.91 3. Osteomyelitis of foot cuboid, right M86.9 4. Left foot ulceration L97.529 5. Uncontrolled DM type E11.9 6. DM polyneuropathy E11.42 7. HTN Plan: 1. Early sepsis secondary to right foot cellulitis and abscess. Lactic acid 2.4 > 1.8 Blood culture - negative so far IV fluid resuscitation equipment monitor phototypesetting 2. Lower Ex CT on 12/13 showed Abscess along the superior lateral aspect of the midfoot with probable osteomyelitis of the adjacent cuboid But No evidence of osteomyelitis Foot MRI on 11/15/[address] Lofton, daptomycin 1000 mg every 24 hours (allergic to cefazolin) Podiatry Dr. House was consulted, who will give surgical intervention today. NPO after midnight IV fluid Wound culture Wound care Pain management including IV morphine ESR pending CRP pending 3. Diabetic diet Hemoglobin A1c 6.8 Continue home diabetic meds empagliflozin and glipzide. Metformin is on hold Insulin ss Adjust based on BG levels 4. Continue home HCTZ 12.5 mg daily and losartan 25 mg daily for blood pressure 5. DVT prophylaxis: No pharmacological DVT prophylaxis due to procedure today. 6. CODE STATUS: Full. Medical - PN: Qual - VTE Deep Vein Thrombosis/Pulmonary Embolism Present on Admission: No
[2019-12-17 08:46] LABS: ALT/SGPT 15 U/l (0-40); AST/SGOT 21 U/l (0-37); Albumin 3.8 gm/dL (3.2-5.2); Albumin/Globulin Ratio 0.9 (1.0-2.3); Alkaline Phosphatase 41 U/L (39-117); Bilirubin,Total 0.3 mg/dL (0.0-1.0); Blood Urea Nitrogen 17 mg/dl (6-20); C-Reactive Protein 1.7 mg/dl (0.0-0.8); Calcium 9.4 mg/dl (8.6-10.4); Carbon Dioxide 22 mmol/L (22-30); Chloride 98 mmol/L (96-108); Globulin 4.2 gm/dL (2.2-3.7); Glomerular Filtration Rate 118; Glucose 153 mg/dL (70-105)
[2019-12-17] MEDS: DOCUSATE SODIUM 100 MG CAPSULE PO SCH ×2 (08:55→08:56)
[2019-12-17] MEDS ORDERED: LOSARTAN 50 MG TABLET PO SCH ×2 (09:00)
[2019-12-17] MEDS: 0.9 % SODIUM CHLORIDE 10 ML SYRINGE IV SCH ×2 (09:00→09:02)
[2019-12-17] MEDS ORDERED: LEVOTHYROXINE SODIUM 175 MCG TABLET PO SCH ×2 (09:00)
[2019-12-17] MEDS ORDERED: DAPTOmycin 500 MG VIAL IV SCH (09:00)
--- NOTE | 2019-12-17 09:45 | Orthopedic Progress Note ---
Subjective Patient information: Note initiated : 12/17/19 at 9:42 am Service Date, if different from initiated Date: [] Patient: Ahmet Zelaya 39 y/o M admitted on 12/16/19 for right foot surgery tomorrow, sent by Dr. Lofton. Chief Complaint: [Right foot cellulitis] Principal diagnosis: Cellulitus right foot Interval history: Patient stayed over night in preparation for right foot incision and drainage right foot. The abscess that was identified on CT is not associated with the erythema present on the other (medial) side of the foot. Patient is concerned about opening the tissue to take a bone sample and wanted to be assured 100% that the surgery was critical in changing his treatment course. He does not want to risk losing his foot at all costs. He is on IV antibiotics, HBO therapy and wound care. He is evaluated daily on the status of his foot and says that he is willing to consider the surgery if the foot turns worse. Objective Vital signs: Vital Signs Temp Pulse Pulse Resp BP BP Pulse Ox 12/17/19 07:48 98.4 F 90 20 121/74 96 12/17/19 04:24 97.6 F 85 18 128/78 95 12/16/19 23:37 97.6 F 90 18 137/73 97 12/16/19 20:00 97.8 F 99 H 18 117/71 95 12/16/19 19:36 100 H 20 126/83 99 12/16/19 18:20 95 H 20 130/80 99 12/16/19 17:23 102 H 20 128/68 99 12/16/19 16:44 97.5 F 102 H 20 135/86 96 Intake and Output 12/16/19 12/17/19 12/17/19 21:59 05:59 13:59 Intake Total 240 Output Total 425 Balance 240 -425 Intake: Oral 240 Output: Void Amount 425 Other: # Voids 2 Weight 312 lb 6 oz Intake & Output: Intake & Output 12/16/19 12/17/19 12/17/19 21:59 05:59 13:59 Intake Total 240 Output Total 425 Balance 240 -425 Weight 312 lb 6 oz Intake: Oral 240 Output: Void Amount 425 Other: # Voids 2 - Labs CBC & BMP: 12/17/19 04:34 12/17/19 04:34 Labs: 12/17/19 12/16/19 04:34 16:56 Hgb 10.3 L 11.4 L Hct 32.5 L 35.2 L Assessment and Plan (1) Abscess Status: Acute Priority: Medium - Narrative A/P Narrative: Cellulitis right foot D/C to home, follow out patient with wound care and HBO therapy
[2019-12-17 10:31] LABS: Erythrocyte Sedimentation Rate 101 mm/hr (0-15)
--- NOTE | 2019-12-17 10:46 | Discharge Summary ---
Medical - DS: Prov Patient information: Note initiated : 12/17/19 at 10:39 am Service Date, if different from initiated Date: [] Patient: Ahmet Zelaya 39 y/o M admitted on 12/16/19 for right foot surgery tomorrow, sent by Dr. Lofton. Chief Complaint: [] Referred to H&P by Rola Olea on 12/16/19 Mr. Zelaya is a 39 year old M with a history of hypotension, diabetes, and right foot ulcer who was referred to the ER by ID Dr. Lofton. As per patient, he has been having right foot ulcer for about to 25 days. He was found to have right foot abscess and osteomyelitis. Dr. Lofton has discussed with podiatry Dr. House who has scheduled surgical intervention tomorrow. When I saw this patient in the ER, he did not have any complaints. He does not feel much pain from the foot ulcer because he has diabetic neuropathy. He denied headache, dizziness, chest pain, shortness of breath, fever, chills, nausea, vomiting, abdominal pain, or dysuria. No recent travel or sick contact. Patient was admitted to our hospital on 11/13/19 due to Septic shock 2nd to MSSA Bacteremia and right foot cellulitis. Date of admission: 12/16/19 20:15 Discharge date: 12/17/19 Primary care physician: Braden Gregory Consults: 12/16/19 Consult to Physician [CONS] Stat Comment: Consulting Provider: Rola Hyatt Reason For Exam: Physician to Consult 12/16/19 19:53 Consult to Physician [CONS] Routine Comment: Consulting Provider: Robert House Reason For Exam: Physician to Consult Medical - DS: Meds - Discharge Medications Active and Home Medications: Home Medications empagliflozin 25 mg tablet 25 mg PO QHS 05/28/16 [History Confirmed 12/16/19 Last Taken 11/12/19] hydrocodone 10 mg-acetaminophen 325 mg tablet 2 tab PO QID PRN tab 05/28/16 [History Confirmed 12/16/19 Last Taken 11/12/19] levothyroxine 175 mcg tablet 175 mcg PO QDAY 05/28/16 [History Confirmed 12/16/19 Last Taken 11/12/19] pregabalin 200 mg capsule 200 mg PO BID cap 05/28/16 [History Confirmed 12/16/19 Last Taken Unknown] Fenofibrate 54 mg PO QHS 11/14/19 [History Confirmed 12/16/19 Last Taken 11/12/19] Losartan [Cozaar] 25 mg PO QAM #1 tab 11/19/19 [Rx Confirmed 12/16/19 Last Taken Unknown] diphenoxylate-atropine 2.5 mg-0.025 mg tablet 1 tab PO QDAY PRN tab 12/11/19 [History Confirmed 12/16/19 Last Taken Unknown] glipizide 10 mg tablet 5 mg PO BID tab 12/11/19 [History Confirmed 12/16/19 Last Taken Unknown] hydrochlorothiazide 25 mg tablet 12.5 mg PO QDAY PRN tab 12/11/19 [History Confirmed 12/16/19 Last Taken Unknown] insulin NPH isoph U-100 human 100 unit/mL (3 mL) subcutaneous pen 1 unit SUB-Q DAILY 12/11/19 [History Confirmed 12/16/19 Last Taken Unknown] meloxicam 15 mg tablet 15 mg PO QDAY tab 12/11/19 [History Confirmed 12/16/19 Last Taken Unknown] metformin 500 mg tablet,extended release 24 hr 1,000 mg PO QDAY tab 12/11/19 [History Confirmed 12/16/19 Last Taken Unknown] methocarbamol 750 mg tablet 750 mg PO Q8HP PRN tab 12/11/19 [History Confirmed 12/16/19 Last Taken Unknown] daptomycin 500 mg intravenous solution 1,000 mg IV Q24H #17 each 12/13/19 [Rx Confirmed 12/16/19 Last Taken Unknown] 0.9 % Sodium Chloride [Saline Flush] 10 ml IV DAILY 12/16/19 [History Confirmed 12/16/19 Last Taken Unknown] Atorvastatin [Lipitor] 10 mg PO HS 12/16/19 [History Confirmed 12/16/19 Last Taken Unknown] DAPTOmycin [Daptomycin] 1,000 mg IV DAILY 12/16/19 [History Confirmed 12/16/19 Last Taken 12/16/19 18:00] Heparin Flush [Heparin 10 Units/ml Flush] 5 ml IV DAILY 12/16/19 [History Confirmed 12/16/19 Last Taken Unknown] diphenhydrAMINE [Benadryl] 25 mg PO Q4-6HP PRN 12/16/19 [History Confirmed 12/16/19 Last Taken Unknown] oxyCODONE HCL [Oxycodone HCl] 5 mg PO Q8HP PRN 12/16/19 [History Confirmed 12/16/19 Last Taken Unknown] Medical - DS: Hosp Hospital Course: By problems: 1. Early sepsis 2nd to right foot cellulitis and osteomyelitis, resolved. 2. Right foot ulceration/cellulitis L03.115 and abscess L02.91 3. Osteomyelitis of foot cuboid, right M86.9 4. Left foot ulceration L97.[address] on 12/13 showed Abscess along the superior lateral aspect of the midfoot with probable osteomyelitis of the adjacent cuboid But No evidence of osteomyelitis Foot MRI on 11/15/[address] Lofton, daptomycin 1000 mg every 24 hours (allergic to cefazolin) Podiatry Dr. House was consulted, who will give surgical intervention today. NPO after midnight IV fluid Wound culture Wound care Pain management including IV morphine ESR [address] House saw pt today, who felt that pt does not need surgical intervention at this moment. Discussed with Dr. House who cleared to discharged him today. As per ID Dr. Lofton, continue damptomycin 1000mg iv daily x 2 weeks. MRI in [address] Lofton will see him after MRI. 5. Uncontrolled DM type E11.9 Diabetic diet Hemoglobin A1c 6.8 Continue home diabetic meds empagliflozin and glipzide. will resume Metformin Insulin ss Adjust based on BG levels 6. DM polyneuropathy E11.42 7. HTN continue home meds Today pt does not have new complaints. Dr. House cleared to discharge this patient to home today. Patient really wants to home today. Vital signs are stable. He will be discharged home to follow with pcp, Dr. House and Dr. Lofton. Repeat MRI in 2 weeks and repeated electrolytes and renal function weekly. Call with PCP for medical issues. Discharge diagnosis: Right foot ulceration/cellulitis L03.115 and abscess L02.91 - Time Spent with Patient Total time spent providing and/or coordinating discharge services: Greater than 30 minutes Medical - DS: Exam - Constitutional Vitals: Vital Signs Temp Pulse Pulse Resp BP BP Pulse Ox 12/17/19 07:48 98.4 F 90 20 121/74 96 12/17/19 04:24 97.6 F 85 18 128/78 95 12/16/19 23:37 97.6 F 90 18 137/73 97 12/16/19 20:00 97.8 F 99 H 18 117/71 95 12/16/19 19:36 100 H 20 126/83 99 12/16/19 18:20 95 H 20 130/80 99 12/16/19 17:23 102 H 20 128/68 99 12/16/19 16:44 97.5 F 102 H 20 135/86 96 Intake and Output 12/16/19 12/17/19 12/17/19 21:59 05:59 13:59 Intake Total 240 Output Total 425 Balance 240 -425 Intake: Oral 240 Output: Void Amount 425 Other: # Voids 2 Weight 141.691 kg - Other Additional findings: General - No acute distress Eyes - PERRLA, EOM intact ENT no rhinorrhea, no noticeable or palpable swelling, no redness or rash around throat or on face Neck supple, no JVD, no thyromegaly Respiratory: Lungs -clear, no wheezing or crackles. Cardiovascular - RRR no m/r/g, GI - Normal bowel sounds, no distended, soft. Extremeties - No edema, cyanosis or clubbing. A ulcer (1x1 cm) is noted over the dorsal aspect of right first metatarsophalangeal joint, surrounding skin erythema. Inner aspect of right foot erythema and edema. 2 small ulcers are noted over the plantar aspect of left first metatarsophalangeal joint. Bases of ulcers are dry. Hemo/lymphatic/immune no lymphadenopathy Neurological Alert and oriented x 3, reduced light touch sensation over feet. Psychiatry flat affect Medical - DS: Data Labs on day of discharge: Labs from last 24 hours 12/17/19 12/17/19 12/17/19 04:34 04:34 04:33 WBC 4.5 RBC 3.76 L Hgb 10.3 L Hct 32.5 L MCV 86.4 MCH 27.4 MCHC 31.7 RDW 13.9 Plt Count 306 MPV 10.4 Gran % 52.6 Lymph % (Auto) 22.0 Clinch % (Auto) 12.6 H Eos % (Auto) 11.7 H Baso % (Auto) 1.1 Gran # 2.35 Lymph # (Auto) 0.98 L Clinch # (Auto) 0.56 Eos # (Auto) 0.52 Baso # (Auto) 0.05 ESR 101 H VBG Lactic Acid 1.8 Sodium 137 Potassium 4.0 Chloride 98 Carbon Dioxide 22 Anion Gap 17.0 H BUN 17 Creatinine 0.7 GFR Calculation 118 Glucose 153 H Hemoglobin A1c Estim Average Glucose Calcium 9.4 Magnesium 2.1 Total Bilirubin 0.3 AST 21 ALT 15 Alkaline Phosphatase 41 C-Reactive Protein 1.7 H NT-Pro-B Natriuret Pep 106.1 Total Protein 8.0 Albumin 3.8 Globulin 4.2 H Albumin/Globulin Ratio 0.9 L Procalcitonin 12/16/19 12/16/19 12/16/19 16:56 16:56 16:56 WBC RBC Hgb Hct MCV MCH MCHC RDW Plt Count MPV Gran % Lymph % (Auto) Clinch % (Auto) Eos % (Auto) Baso % (Auto) Gran # Lymph # (Auto) Clinch # (Auto) Eos # (Auto) Baso # (Auto) ESR VBG Lactic Acid 2.4 H Sodium Potassium Chloride Carbon Dioxide Anion Gap BUN Creatinine GFR Calculation Glucose Hemoglobin A1c 6.8 H Estim Average Glucose 148 Calcium Magnesium Total Bilirubin AST ALT Alkaline Phosphatase C-Reactive Protein NT-Pro-B Natriuret Pep Total Protein Albumin Globulin Albumin/Globulin Ratio Procalcitonin 0.27 12/16/19 12/16/19 16:56 16:56 WBC 5.8 RBC 4.13 L Hgb 11.4 L Hct 35.2 L MCV 85.2 MCH 27.6 MCHC 32.4 RDW 13.9 Plt Count 337 MPV 10.0 Gran % 54.5 Lymph % (Auto) 21.0 Clinch % (Auto) 11.1 Eos % (Auto) 12.0 H Baso % (Auto) 1.4 Gran # 3.14 Lymph # (Auto) 1.21 L Clinch # (Auto) 0.64 Eos # (Auto) 0.69 Baso # (Auto) 0.08 ESR VBG Lactic Acid Sodium 135 Potassium 4.2 Chloride 97 Carbon Dioxide 22 Anion Gap 16.0 BUN 20 Creatinine 0.9 GFR Calculation 106 Glucose 183 H Hemoglobin A1c Estim Average Glucose Calcium 9.6 Magnesium Total Bilirubin 0.3 AST 21 ALT 17 Alkaline Phosphatase 52 C-Reactive Protein NT-Pro-B Natriuret Pep Total Protein 8.9 H Albumin 4.0 Globulin 4.9 H Albumin/Globulin Ratio 0.8 L Procalcitonin Medical - DS: A/P - Patient/Caregiver Discharge Instructions Activity: increase activity as tolerated Diet: Consistent Carbohydrate - Follow up Plan Follow up with: Maulik Lofton MD [Physician] - (Keep your appointment as scheduled.) Dash Manuel MD [Physician] - (Keep your appointment as scheduled) Jose Gregory MD [Primary Care Provider] - (Make an appointment as needed.) Dr. House [Other] (in one week) [Other] (in 2 weeks (after MRI)) Disposition: Home, Self-Care Prognosis: Fair Rehab Potential: Fair Medical - DS: Qual - VTE Deep Vein Thrombosis/Pulmonary Embolism Present on Admission: No
--- NOTE | 2019-12-17 12:21 | Infectious Disease Consult ---
History of Present Illness Patient information: Note initiated : 12/17/19 at 12:15 pm Service Date, if different from initiated Date: [] Patient: Ahmet Zelaya 39 y/o M admitted on 12/16/19 for right foot surgery tomorrow, sent by Dr. Lofton. Chief Complaint: [] Consult date: 12/17/19 Requesting Physician: Rola Hyatt Reason for Consult: right foot abscess and osteomyelitis Chief complaint: CT showed abscess in the foot History of present illness: 39 year old man well known to me from ID clinic and recent hospitalization at [facility]. He was managed for his diagnosis of MSSA bacteremia and right foot cellulitis with focal abscess. Patient was discharged on tentative plan of 4 weeks of IV cefazolin counting from his first day of negative blood cultures [11/17/2019] with plans to do outpatient follow-up with wound care and ADAMS. His ADAMS was done on 12/06/2019 and showed no signs of endocarditis with a normal LV function. Patient has been getting his IV cefazolin at home through home health. He denies any redness or swelling or pain around the neck line site stop he had a recent ER visit [see patient's chart] when he presented with rash. After virtual visit and discussion with the ED provider after discussion of risks versus benefits; it was decided to continue IV cefazolin while patient continues to take p.o. Benadryl and cetirizine. Patient reported that his rash completely went away after a week of taking Benadryl. He stopped it subsequently but is still taking cetirizine. He denies any fever, chills, nausea, vomiting, diarrhea, rash. Reports that he went back to work for a day and since then his right lower leg and foot is more swollen. He endorses some bloody drainage. Has also been seen by Dr. Manuel and mentions that there is a plan for wound VAC placement. Denies any trauma or exposure to pets. He underwent CT right foot after his ID clinic visit last Tuesday which showed " Abscess 1.7 x 2.0 x 2.9 cm along the superior lateral aspect of the midfoot with probable osteomyelitis of the adjacent cuboid". Pt was asked to come to [facility] for debridement but he wanted to wait and discuss with his as his child was also having a procedure. Pt subsequently was able to come to [facility] on Tuesday evening for possible abscess aspiration, bone Bx. At admission, pt denied any symptoms except for right foot swelling. he didnot endorse any pain due to neuropathy. Labs showed elev ESR of 101, CRP of 1.7, normal WBC. Pt didnot agree to bone biopsy and surgical debridement and opted for watchful waiting on antibiotics. Past History Past medical history: DM2, with neuropathy HTN Past family history: Mother has high cholesterol; father has high blood pressure Past social history: former smoker Medications and Allergies Home Medications Medication Instructions Recorded Confirmed Type empagliflozin 25 mg tablet 25 mg PO QHS 05/28/16 12/16/19 History levothyroxine 175 mcg tablet 175 mcg PO QDAY 05/28/16 12/16/19 History pregabalin 200 mg capsule 200 mg PO BID cap 05/28/16 12/16/19 History Fenofibrate 54 mg PO QHS 11/14/19 12/16/19 History Losartan [Cozaar] 25 mg PO QAM #1 tab 11/19/19 12/16/19 Rx glipizide 10 mg tablet 5 mg PO BID tab 12/11/19 12/16/19 History hydrochlorothiazide 25 mg tablet 12.5 mg PO QDAY PRN tab 12/11/19 12/16/19 History insulin NPH isoph U-100 human 100 1 unit SUB-Q DAILY 12/11/19 12/16/19 History unit/mL (3 mL) subcutaneous pen metformin 500 mg tablet,extended 1,000 mg PO QDAY tab 12/11/19 12/16/19 History release 24 hr methocarbamol 750 mg tablet 750 mg PO Q8HP PRN tab 12/11/19 12/16/19 History daptomycin 500 mg intravenous 1,000 mg IV Q24H #17 each 12/13/19 12/16/19 Rx solution Atorvastatin [Lipitor] 10 mg PO HS 12/16/19 12/16/19 History Heparin Flush [Heparin 10 Units/ml 5 ml IV DAILY 12/16/19 12/16/19 History Flush] oxyCODONE HCL [Oxycodone HCl] 5 mg PO Q8HP PRN 12/16/19 12/16/19 History Allergies Allergy/AdvReac Type Severity Reaction Status Date / Time cefazolin AdvReac Intermediate Rash Verified 12/11/19 15:59 Physical Examination Vital signs: Temp Pulse Resp BP Pulse Ox 36.9 C 90 20 121/74 96 12/17/19 07:48 12/17/19 07:48 12/17/19 07:48 12/17/19 07:48 12/17/19 07:48 General appearance: no acute distress Eyes pulmonary: nonicteric ENT: oropharynx moist Gastrointestinal: soft, non-tender Extremities: edema, other (has swelling on the lateral aspect of right foot. Some warmth and redness. The ulcer previously seen over the right great toe has closed with a scab over it. The right foot is more swollen compared to left foot. Peripheral pulses palpable) Results - Laboratory Findings CBC and BMP: 12/17/19 04:34 12/17/19 04:34 Abnormal lab findings: Abnormal Labs 12/16/19 12/16/19 12/16/19 16:56 16:56 16:56 RBC 4.13 L Hgb 11.4 L Hct 35.2 L Beckham % (Auto) Eos % (Auto) 12.0 H Lymph # (Auto) 1.21 L ESR VBG Lactic Acid 2.4 H Anion Gap Glucose 183 H Hemoglobin A1c C-Reactive Protein Total Protein 8.9 H Globulin 4.9 H Albumin/Globulin Ratio 0.8 L 12/16/19 12/17/19 12/17/19 16:56 04:34 04:34 RBC 3.76 L Hgb 10.3 L Hct 32.5 L Beckham % (Auto) 12.6 H Eos % (Auto) 11.7 H Lymph # (Auto) 0.98 L ESR 101 H VBG Lactic Acid Anion Gap 17.0 H Glucose 153 H Hemoglobin A1c 6.8 H C-Reactive Protein 1.7 H Total Protein Globulin 4.2 H Albumin/Globulin Ratio 0.9 L Microbiology: Microbiology 12/17/19 04:33 Nose MRSA (PCR) - Final Assessment and Plan - Narrative A/P Narrative: A: 1. Recent diagnosis of complicated MSSA bacteremia: has multiple positive blood cultures since 11/12-11/15. Cx neg since 11/16 -Likely sources is scabbed wounds and right foot infected ulcers over his extremities, which grew MSSA as well -TTE negative inpatient x1. ADAMS done at [facility]: Negative, without any signs of endocarditis -Status post IV cefazolin almost 4 weeks weeks with subsequent switch to IV daptomycin thousand milligrams every 24 given eosinophilia and persistent of allergic symptoms 2. Right foot wound infection: Marked improvement in undermining and swelling/redness around the great ball of right foot. No pus/foul odor -ESR 101, CRP 1.7 -CT right foot on 12/14/19 showed a 1.7 into 2 into 2.9 cm Abscess along the superior lateral aspect of the midfoot with probable osteomyelitis of the adjacent cuboid -Based on discussion between Dr. House and the patient, no plans for obtaining a bone biopsy and surgical debridement 3. Type 2 diabetes with peripheral neuropathy Recommendations: -Continue IV Daptomycin 8 mg/kg (1000mg q24) with the stop date of December, -Repeat MRI right foot with contrast at that time. If patient still has an abscess or concerns for infection; referred to podiatry for surgical debridement. Patient understands risk versus benefits - leg elevation, wt offloading and wound care per Dr Manuel - continue follow up labs: CK, BMP weekly; ESR and CRP every other week. -will arrange follow-up after the MRI results Maulik Lofton MD Infectious disease
[2019-12-17] MEDS ORDERED: ATORVASTATIN 20 MG TABLET PO SCH (21:00)
[2019-12-17] MEDS ORDERED: FENOFIBRATE 43 MG CAPSULE PO SCH (21:00)
== END 2019-12-17 12:38 | disposition home or self-care (01) | DRG 872 ==
LOC: ED 16:44 → MEDSUR 20:15
PROVIDERS: ADMIT Internal Medicine; ATTEND Internal Medicine

== ENCOUNTER 2020-01-07 21:05 | Inpatient (IN) ==
[2020-01-07] MEDS ORDERED: PIPERACILLIN SODIUM/TAZOBACTAM 3.375 GM in DEXTROSE 5% IN WATER 50 ML IV ONE (21:26)
[2020-01-07] MEDS ORDERED: 0.9 % SODIUM CHLORIDE 1,000 ML IV ONE (21:26)
[2020-01-07 22:21] LABS: Basophils # (Auto) 0.03 K/mcL (0.00-0.30); Basophils % (Auto) 0.2 % (0.0-2.0); Eosinophils # (Auto) 0.06 K/mcL (0.00-0.70); Eosinophils % (Auto) 0.4 % (0.0-7.0); Hemoglobin 8.8 g/dL (13.7-17.5); Lymphocytes # (Auto) 0.55 K/mcL (1.50-4.80); Lymphocytes % (Auto) 3.9 % (15.5-49.0); Mean Cell Volume 85.4 fL (80.0-100.0); Mean Corpuscular HGB Conc 31.4 g/dL (31.0-36.0); Mean Platelet Volume 10.9 fL (7.4-10.4); Monocytes # (Auto) 0.91 K/mcL (0.10-0.90); Monocytes % (Auto) 6.5 % (1.0-12.0); Platelet Count 237 K/mcL (140-440); RBC 3.28 M/mcL (4.63-6.08); Red Cell Distribution Width 15.1 % (11.5-14.5)
[2020-01-07 22:54] LABS: ALT/SGPT 17 U/l (0-40); AST/SGOT 17 U/l (0-37); Albumin/Globulin Ratio 0.7 (1.0-2.3); Alkaline Phosphatase 49 U/L (39-117); Bilirubin,Total 0.4 mg/dL (0.0-1.0); Blood Urea Nitrogen 51 mg/dl (6-20); Calcium 8.9 mg/dl (8.6-10.4); Carbon Dioxide 20 mmol/L (22-30); Chloride 94 mmol/L (96-108); Globulin 4.4 gm/dL (2.2-3.7); Glomerular Filtration Rate 36; Glucose 293 mg/dL (70-105)
--- NOTE | 2020-01-07 23:12 | Emergency Department Note ---
Weakness HPI General Chief complaint: Weakness Stated complaint: weakness, confusion, vomiting Time Seen by Provider: 01/07/20 21:26 Source: patient and family Mode of arrival: wheelchair Limitations: no limitations History of Present Illness HPI Narrative: 39-year-old male diabetic with Charcot foot comes in complaining of weakness nausea and vomiting since last night. He is got a headache as well. He is now insulin-dependent since his last admission. He states he feels like he did the last time he was septic. He recently had an MRI of the foot which showed possible osteomyelitis. His right foot is now very edematous red. Is not painful as he has no sensation in his foot. He is tachycardic tachypneic and his blood pressure is little on the low side. He is able to urinate went right before coming in. He feels very thirsty. No trouble breathing according to him but his notes that he is short of breath with any minimal movement. She also notes that he is been more confused Related Data Home Medications Medication Instructions Recorded Confirmed empagliflozin 25 mg tablet 25 mg PO QHS 05/28/16 01/07/20 levothyroxine 175 mcg tablet 175 mcg PO QDAY 05/28/16 01/07/20 pregabalin 200 mg capsule 400 mg PO BID cap 05/28/16 01/07/20 fenofibrate 54 mg PO QHS 11/14/19 01/07/20 glipizide 10 mg tablet 5 mg PO BID tab 12/11/19 01/07/20 hydrochlorothiazide 25 mg tablet 12.5 mg PO QDAY PRN tab 12/11/19 01/07/20 insulin NPH isoph U-100 human 100 1 unit SUB-Q DAILY 12/11/19 01/07/20 unit/mL (3 mL) subcutaneous pen metformin 500 mg tablet,extended 1,000 mg PO QDAY tab 12/11/19 01/07/20 release 24 hr Atorvastatin [Lipitor] 10 mg PO HS 12/16/19 01/07/20 oxycodone 5 mg PO Q8HP PRN 12/16/19 01/07/20 hydrocodone-acetaminophen 1 - 2 tab PO Q6H PRN 12/25/19 01/07/20 meloxicam 15 mg PO QAM 12/25/19 01/07/20 Previous Rx's Medication Instructions Recorded losartan 25 mg PO QAM #1 tab 11/19/19 Allergies Allergy/AdvReac Type Severity Reaction Status Date / Time cefazolin AdvReac Intermediate Rash Verified 01/07/20 21:10 Review of Systems All systems ED: reviewed and negative except as stated. [facility] Medical/Surgical/Family History All Active Problems Septic shock (Acute) Sepsis (Acute) Abdominal pain (Acute) Vomiting and diarrhea (Acute) Wound of foot (Chronic) Uncontrolled diabetes mellitus (Acute) Skin and subcutaneous tissue disease (Acute) Allergic reaction to drug (Acute) Osteomyelitis (Acute) Abscess (Acute) Acute renal failure (Acute) Encounter for long-term current use of high risk medication (Acute) Carpal tunnel syndrome (Chronic) Back pain (Chronic) Paresthesia and pain of both upper extremities (Acute) Abnormal immunological finding in serum (Chronic) Acquired hallux varus of left foot (Chronic) Hypertension (Chronic) Polyneuropathy (Chronic) Onychomycosis (Chronic) Angioedema (Chronic) Chronic back pain (Chronic) Hypothyroidism (Chronic) Type II diabetes mellitus (Chronic) Hammertoe (Chronic) Hypocalcemia (Chronic) Abnormal liver enzymes (Chronic) Hypoalphalipoproteinemia (Chronic) Hypertriglyceridemia (Chronic) Morbid obesity (Chronic) Medical History Abnormal immunological finding in serum (Chronic) Abnormal liver enzymes (Chronic) Acquired hallux varus of left foot (Chronic) Angioedema (Chronic) Back pain (Chronic) Carpal tunnel syndrome (Chronic) Chronic back pain (Chronic) Encounter for long-term current use of high risk medication (Acute) Hammertoe (Chronic) chronic callus and diabetic ulcer under the second left metatarsal head due to hammertoe and bunion deformity Hypertension (Chronic) Hypertriglyceridemia (Chronic) Hypoalphalipoproteinemia (Chronic) Hypocalcemia (Chronic) Hypothyroidism (Chronic) Inflammatory arthritis (Suspected) Inflammatory arthropathy (Suspected) Morbid obesity (Chronic) Onychomycosis (Chronic) Paresthesia and pain of both upper extremities (Acute) Polyneuropathy (Chronic) Type II diabetes mellitus (Chronic) Surgical History History of back surgery (Acute) History of surgery (Acute) right foot No pertinent past surgical history (Acute) S/P carpal tunnel release (Acute) left hand Family History Other Cancer Diabetes Hypertension No pertinent family history Social History Smoking Status: Former smoker Alcohol Intake Frequency: does not drink Substance Use: does not use Exam Narrative Narrative: No acute distress. Obese. Normocephalic atraumatic. Conjunctive are clear sclerae white nonicteric. No nasal discharge or congestion. Oropharynx with dry buccal mucosa. Neck is supple without lymphadenopathy or thyromegaly. Heart is mildly tachycardic but regular rhythm no murmur appreciated. Lungs are clear to auscultation bilaterally without wheezes rales rhonchi or respiratory distress. Abdomen soft nontender nondistended. I did look at his right foot and it is very edematous and red however nontender. I do not see any draining wounds. He is alert oriented able answer questions appropriately here. He can give me reasonable history and review of system General Limitations: no limitations Course Vital Signs Vital signs: Vital Signs Temperature 101.8 F H 01/07/20 21:06 Pulse Rate 126 H 01/07/20 21:06 Respiratory Rate 22 01/07/20 21:06 Blood Pressure 146/121 01/07/20 21:06 Pulse Oximetry (%) 94 01/07/20 21:06 Temperature 99.3 F H 01/07/20 21:42 Pulse Rate 104 H 01/08/20 01:01 Respiratory Rate 13 01/08/20 01:01 Blood Pressure 85/40 01/08/20 01:01 Pulse Oximetry (%) 95 01/08/20 01:01 [facility] Narrative Medical decision making narrative: Patient was initially evaluated with concern for possible sepsis with tachycardia tachypnea and low normal blood pressure. I reviewed his MRI from last week as well as highlights of his chart. Likely diagnosis is osteomyelitis with or without sepsis, in a Charcot foot with hardware-this based on that MRI. Ordered laboratory blood cultures IV fluids and Zosyn. He has no sensation in his feet so he is not requiring pain medicine at this time. He is afebrile. Laboratory shows consistent with sepsis but now with renal failure-noted leukocytosis and elevated procalcitonin. Lactic acid however is normal. Urinated just prior to coming in. We continued IV fluids. Chest x-ray is ordered as he is reporting some shortness of breath but this was normal. I discussed his case with Dr. Orozco, our hospitalist, who agreed except the patient for further care and evaluation in the hospital. Recommended that we continue the Zosyn and IV fluids. We will admit him to the PCU. I wrote transition orders. I did try to consult Dr. Robert House, wood tank erector as well but he did not answer my phone calls. We ended up needing to start Levophed for low blood pressure before he went to the PCU Lab Data Lab results reviewed: Yes I reviewed the patient's lab results. Result diagrams: 01/07/20 21:40 01/07/20 21:40 Labs: Lab Results 01/07/20 01/07/20 01/07/20 Range/Units 21:40 21:40 21:40 WBC 14.0 H (4.50-11.00) K/mcL RBC 3.28 L (4.63-6.08) M/mcL Hgb 8.8 L (13.7-17.5) g/dL Hct 28.0 L (40.1-51.0) % MCV 85.4 (80.0-100.0) fL MCH 26.8 (26.0-34.0) pg MCHC 31.4 (31.0-36.0) g/dL RDW 15.1 H (11.5-14.5) % Plt Count 237 (140-440) K/mcL MPV 10.9 H (7.4-10.4) fL Gran % 89.0 H (38.0-78.0) % Lymph % (Auto) 3.9 L (15.5-49.0) % Bullitt % (Auto) 6.5 (1.0-12.0) % Eos % (Auto) 0.4 (0.0-7.0) % Baso % (Auto) 0.2 (0.0-2.0) % Gran # 12.48 H (1.80-8.00) K/mcL Lymph # (Auto) 0.55 L (1.50-4.80) K/mcL Bullitt # (Auto) 0.91 H (0.10-0.90) K/mcL Eos # (Auto) 0.06 (0.00-0.70) K/mcL Baso # (Auto) 0.03 (0.00-0.30) K/mcL VBG Lactic Acid 1.4 (0.5-2.0) mmol/L Sodium 130 L (133-145) mmol/L Potassium 4.3 (3.3-5.1) mmol/L Chloride 94 L (96-108) mmol/L Carbon Dioxide 20 L (22-30) mmol/L Anion Gap 16.0 (8-16) BUN 51 H (6-20) mg/dl Creatinine 2.2 H (0.7-1.2) mg/dl GFR Calculation 36 Glucose 293 H (70-105) mg/dL Calcium 8.9 (8.6-10.4) mg/dl Magnesium 1.7 (1.6-2.5) mg/dL Total Bilirubin 0.4 (0.0-1.0) mg/dL AST 17 (0-37) U/l ALT 17 (0-40) U/l Alkaline Phosphatase 49 (39-117) U/L Total Protein 7.4 (5.9-8.4) gm/dL Albumin 3.0 L (3.2-5.2) gm/dL Globulin 4.4 H (2.2-3.7) gm/dL Albumin/Globulin Ratio 0.7 L (1.0-2.3) Procalcitonin (<0.10) ng/mL 01/07/20 Range/Units 21:40 WBC (4.50-11.00) K/mcL RBC (4.63-6.08) M/mcL Hgb (13.7-17.5) g/dL Hct (40.1-51.0) % MCV (80.0-100.0) fL MCH (26.0-34.0) pg MCHC (31.0-36.0) g/dL RDW (11.5-14.5) % Plt Count (140-440) K/mcL MPV (7.4-10.4) fL Gran % (38.0-78.0) % Lymph % (Auto) (15.5-49.0) % Bullitt % (Auto) (1.0-12.0) % Eos % (Auto) (0.0-7.0) % Baso % (Auto) (0.0-2.0) % Gran # (1.80-8.00) K/mcL Lymph # (Auto) (1.50-4.80) K/mcL Bullitt # (Auto) (0.10-0.90) K/mcL Eos # (Auto) (0.00-0.70) K/mcL Baso # (Auto) (0.00-0.30) K/mcL VBG Lactic Acid (0.5-2.0) mmol/L Sodium (133-145) mmol/L Potassium (3.3-5.1) mmol/L Chloride (96-108) mmol/L Carbon Dioxide (22-30) mmol/L Anion Gap (8-16) BUN (6-20) mg/dl Creatinine (0.7-1.2) mg/dl GFR Calculation Glucose (70-105) mg/dL Calcium (8.6-10.4) mg/dl Magnesium (1.6-2.5) mg/dL Total Bilirubin (0.0-1.0) mg/dL AST (0-37) U/l ALT (0-40) U/l Alkaline Phosphatase (39-117) U/L Total Protein (5.9-8.4) gm/dL Albumin (3.2-5.2) gm/dL Globulin (2.2-3.7) gm/dL Albumin/Globulin Ratio (1.0-2.3) Procalcitonin 4.19 (<0.10) ng/mL Discharge Plan Patient/Caregiver Discharge Instructions Pt seen by HOSPITAL INSURANCE REPRESENTATIVE/PA only: No Clinical Impression: Sepsis Qualifiers: Sepsis type: sepsis due to unspecified organism Sepsis acute organ dysfunction status: with acute organ dysfunction Severe sepsis acute organ dysfunction type: acute renal failure Acute renal failure type: unspecified Severe sepsis shock status: without septic shock Qualified Code(s): A41.9 - Sepsis, unspecified organism Acute renal failure Qualifiers: Acute renal failure type: unspecified Qualified Code(s): N17.9 - Acute kidney failure, unspecified Osteomyelitis Qualifiers: Osteomyelitis type: unspecified type Osteomyelitis location: foot Laterality: right Qualified Code(s): M86.9 - Osteomyelitis, unspecified Patient Disposition: Xfer As Inpt ([facility]) Discharge Date/Time: 01/08/20 01:06
[2020-01-08] MEDS ORDERED: ONDANSETRON 4 MG/2 ML VIAL IV PRN (00:09)
[2020-01-08] MEDS: 0.9 % SODIUM CHLORIDE 1,000 ML IV SCH ×2 (00:15→08:58)
[2020-01-08] MEDS ORDERED: NOREPINEPHRINE BITARTRATE 16 MG in 0.9 % SODIUM CHLORIDE 234 ML IV PRN (00:33)
[2020-01-08] MEDS ORDERED: 0.9 % SODIUM CHLORIDE 500 ML IV ONE (00:59)
[2020-01-08] MEDS: 0.9 % SODIUM CHLORIDE 250 ML IV SCH ×2 (01:41→14:26)
--- NOTE | 2020-01-08 04:01 | XRay Report ---
CLINICAL INFORMATION: Dyspnea COMPARISON: 11/19/2019 TECHNIQUE: Portable chest FINDINGS: The heart size, mediastinum and pulmonary vessels are unremarkable. The lungs are clear. There are no effusions. The bones and soft tissues are within normal limits. IMPRESSION: Normal chest. Interpreted and Authenticated by: Js Jasso 01/08/20
[2020-01-08] MEDS: PIPERACILLIN SODIUM/TAZOBACTAM 3.375 GM in DEXTROSE 5% IN WATER 50 ML IV SCH ×2 (05:42→14:25)
--- NOTE | 2020-01-08 07:17 | Internal Med History&Physical ---
HPI History of Present Illness Patient information: Note initiated : 01/08/20 at 7:12 am Service Date, if different from initiated Date: [] Patient: Ahmet Zelaya 39 y/o M admitted on 01/08/20 for weakness, confusion, vomiting. Chief Complaint: [] History of present illness: Mr. Zelaya is a 39 year old M Who has been dealing with diabetic foot ulcer and abscesses for the past several months presents the ED because he feels weak and states he had some confusion, an episode of nausea vomiting after dinner last night. His right lower extremity is swollen and painful up to the thigh. He feels feels similar to when he previously developed sepsis. No fevers and chills at home Had a recent MRI which showed possible osteomyelitis but not definitive. He did have a I&D of an abscess in the foot earlier in the month. Does have hardware in place from previous foot surgeries related to Charcot foot. Review of Systems: Pertinent positives as above. Occasional headache. Denies fever/chills/chest or abdominal pain/cough/dyspnea/diarrhea. Remaining 10 point review of system reviewed negative [facility] Medical History Abnormal immunological finding in serum (Chronic) Abnormal liver enzymes (Chronic) Acquired hallux varus of left foot (Chronic) Angioedema (Chronic) Back pain (Chronic) Carpal tunnel syndrome (Chronic) Chronic back pain (Chronic) Encounter for long-term current use of high risk medication (Acute) Hammertoe (Chronic) chronic callus and diabetic ulcer under the second left metatarsal head due to hammertoe and bunion deformity Hypertension (Chronic) Hypertriglyceridemia (Chronic) Hypoalphalipoproteinemia (Chronic) Hypocalcemia (Chronic) Hypothyroidism (Chronic) Inflammatory arthritis (Suspected) Inflammatory arthropathy (Suspected) Morbid obesity (Chronic) Onychomycosis (Chronic) Paresthesia and pain of both upper extremities (Acute) Polyneuropathy (Chronic) Type II diabetes mellitus (Chronic) Surgical History History of back surgery (Acute) History of surgery (Acute) right foot No pertinent past surgical history (Acute) S/P carpal tunnel release (Acute) left hand Family History Other Cancer Diabetes Hypertension No pertinent family history Social History (Updated 12/12/19 @ 11:24 by Maulik Lofton MD) smoking status: Former smoker alcohol intake frequency: does not drink substance use type: does not use MEDS/ALLERGIES Home Medications and Allergies Home Medications Medication Instructions Recorded Confirmed Type empagliflozin 25 mg tablet 25 mg PO QHS 05/28/16 01/07/20 History levothyroxine 175 mcg tablet 175 mcg PO QDAY 05/28/16 01/07/20 History pregabalin 200 mg capsule 400 mg PO BID cap 05/28/16 01/07/20 History fenofibrate 54 mg PO QHS 11/14/19 01/07/20 History losartan 25 mg PO QAM #1 tab 11/19/19 01/07/20 Rx glipizide 10 mg tablet 5 mg PO BID tab 12/11/19 01/07/20 History hydrochlorothiazide 25 mg tablet 12.5 mg PO QDAY PRN tab 12/11/19 01/07/20 History insulin NPH isoph U-100 human 100 1 unit SUB-Q DAILY 12/11/19 01/07/20 History unit/mL (3 mL) subcutaneous pen metformin 500 mg tablet,extended 1,000 mg PO QDAY tab 12/11/19 01/07/20 History release 24 hr Atorvastatin [Lipitor] 10 mg PO HS 12/16/19 01/07/20 History oxycodone 5 mg PO Q8HP PRN 12/16/19 01/07/20 History hydrocodone-acetaminophen 1 - 2 tab PO Q6H PRN 12/25/19 01/07/20 History meloxicam 15 mg PO QAM 12/25/19 01/07/20 History Allergies Allergy/AdvReac Type Severity Reaction Status Date / Time cefazolin AdvReac Intermediate Rash Verified 01/07/20 21:10 EXAM Constitutional Vitals: Temp Pulse Resp BP Pulse Ox 99.4 F H 102 H 20 130/75 97 01/08/20 02:03 01/08/20 07:01 01/08/20 07:01 01/08/20 07:01 01/08/20 07:01 Exam: General: Alert, Awake, No acute Distress, obese Eyes/N/T: EOMI, PERRL, dry MM Head/Neck: neck supple, normocephalic atraumatic CV: Tacky, 2/6 SM Pulm: Clear b/l, no wheezing/rhonchi/rales Abd: soft, nontender, +BS x4 Ext: no clubbing/cyanosis, b/l LE edema R>L, right foot erythematous and leg tender Neuro: Alert, no focal deficits, moves all extremities, CN 2-12 grossly intact, symmetrical strength b/l upper/lower, decreased sensations bilateral lower extremities Skin: warm/dry DATA Data Completed and Pending Labs on day of discharge: Labs from last 24 hours 01/07/20 01/07/20 01/07/20 21:40 21:40 21:40 WBC RBC Hgb Hct MCV MCH MCHC RDW Plt Count MPV Gran % Lymph % (Auto) Jenkins % (Auto) Eos % (Auto) Baso % (Auto) Gran # Lymph # (Auto) Jenkins # (Auto) Eos # (Auto) Baso # (Auto) VBG Lactic Acid 1.4 Sodium 130 L Potassium 4.3 Chloride 94 L Carbon Dioxide 20 L Anion Gap 16.0 BUN 51 H Creatinine 2.2 H GFR Calculation 36 Glucose 293 H Calcium 8.9 Magnesium 1.7 Total Bilirubin 0.4 AST 17 ALT 17 Alkaline Phosphatase 49 Total Protein 7.4 Albumin 3.0 L Globulin 4.4 H Albumin/Globulin Ratio 0.7 L Procalcitonin 4.19 01/07/20 21:40 WBC 14.0 H RBC 3.28 L Hgb 8.8 L Hct 28.0 L MCV 85.4 MCH 26.8 MCHC 31.4 RDW 15.1 H Plt Count 237 MPV 10.9 H Gran % 89.0 H Lymph % (Auto) 3.9 L Jenkins % (Auto) 6.5 Eos % (Auto) 0.4 Baso % (Auto) 0.2 Gran # 12.48 H Lymph # (Auto) 0.55 L Jenkins # (Auto) 0.91 H Eos # (Auto) 0.06 Baso # (Auto) 0.03 VBG Lactic Acid Sodium Potassium Chloride Carbon Dioxide Anion Gap BUN Creatinine GFR Calculation Glucose Calcium Magnesium Total Bilirubin AST ALT Alkaline Phosphatase Total Protein Albumin Globulin Albumin/Globulin Ratio Procalcitonin A/P Narrative A/P Narrative: A: *DM foot (Right) infection, recurrent: -h/o MSSA *Septic Shock: -was on vasopressors for a period of time last night, now off -febrile, leukocytosis, elevated PCT/CRP *KEN: 2/2 sepsis endorgan dysfunction -slowly improving *AMS: 2/2 sepsis endorgan dysfunction -improved *Anemia,chronic: *DM II w/neuropathy: *Morbid obesity: *HTN: on HCTZ and Losartan at home *Degenerative joint disease: *Chronic T/L spine pain: no change *Hypothyroidism: on thyroxine at home *Hyponatremia: slowly improving Plan: -IVF's -Abx, pending BC -Podiatry consult -ID consult -wound care -avoid nephrotoxins -basal and SSI, metformin/glip held -HCTZ/ARB held for KEN -PT OT nutrition support -ppx: Heparin Time Spent With Patient Time: Total time spent is greater than 50% in coordination of care (as docume nted) at patient's floor/unit and/or counseling patient:
[2020-01-08 08:17] LABS: Basophils # (Auto) 0.03 K/mcL (0.00-0.30); Basophils % (Auto) 0.2 % (0.0-2.0); Eosinophils # (Auto) 0.06 K/mcL (0.00-0.70); Eosinophils % (Auto) 0.5 % (0.0-7.0); Hematocrit 28.1 % (40.1-51.0); Hemoglobin 8.7 g/dL (13.7-17.5); Lymphocytes # (Auto) 0.67 K/mcL (1.50-4.80); Mean Cell Volume 85.4 fL (80.0-100.0); Monocytes % (Auto) 8.3 % (1.0-12.0); Platelet Count 256 K/mcL (140-440); RBC 3.29 M/mcL (4.63-6.08); Red Cell Distribution Width 15.2 % (11.5-14.5); WBC 13.3 K/mcL (4.50-11.00)
[2020-01-08 08:47] LABS: ALT/SGPT 16 U/l (0-40); AST/SGOT 16 U/l (0-37); Albumin 3.1 gm/dL (3.2-5.2); Albumin/Globulin Ratio 0.7 (1.0-2.3); Alkaline Phosphatase 48 U/L (39-117); Bilirubin,Direct 0.2 mg/dL (0.0-0.3); Bilirubin,Total 0.4 mg/dL (0.0-1.0); Blood Urea Nitrogen 50 mg/dl (6-20); Calcium 8.4 mg/dl (8.6-10.4); Carbon Dioxide 20 mmol/L (22-30); Chloride 100 mmol/L (96-108); Globulin 4.2 gm/dL (2.2-3.7); Glomerular Filtration Rate 43; Glucose 225 mg/dL (70-105); Lactate Dehydrogenase 164 U/L (94-250); Phosphorous 3.4 mg/dL (2.7-4.5); Triglycerides 223 mg/dl (<150); Uric Acid 8.1 mg/dL (2.5-8.0)
[2020-01-08 08:49] LABS: C-Reactive Protein 22.3 mg/dl (0.0-0.8)
[2020-01-08] MEDS ORDERED: DAPTOmycin 500 MG VIAL IV SCH (10:00)
[2020-01-08] MEDS ORDERED: ACETAMINOPHEN 325 MG TABLET PO PRN (10:02)
[2020-01-08] MEDS ORDERED: POTASSIUM CHLORIDE 40 MEQ in DEXTROSE 5% IN WATER 500 ML IV PRN (10:02)
[2020-01-08] MEDS ORDERED: MAGNESIUM SULFATE 2 GM/50 ML BAG IV PRN (10:02)
[2020-01-08] MEDS ORDERED: POTASSIUM CHLORIDE 20 MEQ TABLET PO PRN ×2 (10:02)
[2020-01-08] MEDS ORDERED: POLYETHYLENE GLYCOL 3350 17 GM PACKET PO PRN (10:02)
[2020-01-08] MEDS ORDERED: HYDROcodone/APAP 5/325MG TABLET PO PRN (10:02)
[2020-01-08] MEDS ORDERED: SENNOSIDES 1 TABLET PO PRN (10:02)
[2020-01-08] MEDS ORDERED: 0.9 % SODIUM CHLORIDE 1,000 ML IV SCH (10:09)
[2020-01-08] MEDS ORDERED: HYDROcodone/APAP 10/325MG TABLET PO PRN (10:10)
--- NOTE | 2020-01-08 10:52 | Infectious Disease Consult ---
HPI Data of Consult Primary Care Provider: Braden Gregory Consult Narrative Patient Information: Note initiated : 01/08/20 at 10:46 am Service Date, if different from initiated Date: [] Patient: Ahmet Zelaya 39 y/o M admitted on 01/08/20 for weakness, confusion, vomiting. Chief Complaint: [I was having vomiting but was worried about the red right leg and foot 39 year old man well known to me from past visits for MSSA bacteremia and right foot infection with underlying osteomyelitis. Pt was treated for 6 weeks with IV antibiotics (cefazolin, then daptomycin) with end date i of December 29, 2019. MRI of the right foot was done on December 30 which did not show any abscess but a ganglion cyst along with questionable osteomyelitis. Patient was doing fine subsequently until this Tuesday when he noticed that his leg and foot has been more red and swollen than before. He was celebrating Father's Day while camping with friends and family, had 2 beers. Denied any falls or bites. Mentions that towards the end of the day he started feeling sick. Had vomiting after dinner. He endorses some chills although denies any subjective or objective fevers. From the notes, it appears that patient also had some confusion noticed per his . At admission: Vital signs were notable for fever of 101.8 F, tachycardia, blood pressure of 85/41. Patient was started on pressors, blood cultures were sent. Started on IV vancomycin and IV Zosyn. He was noted to have leukocytosis with creatinine of 2.2 concerning for acute kidney injury. His lactic acid was normal. At time of visit this morning, patient confirms above history. Adds that he also has pain in his right thigh and right leg. Denies any pain in the foot [probably due to neuropathy]. Reports that his blood sugars have been running high in 190s. ] cc:: CC: Bakari Orozco Constitutional Constitutional: Present malaise and weakness Gastrointestinal Gastrointestinal: Absent diarrhea, nausea and vomiting Integumentary Integumentary: Present erythema and swelling (right foot and leg) [facility] Medical History Abnormal immunological finding in serum (Chronic) Abnormal liver enzymes (Chronic) Acquired hallux varus of left foot (Chronic) Angioedema (Chronic) Back pain (Chronic) Carpal tunnel syndrome (Chronic) Chronic back pain (Chronic) Encounter for long-term current use of high risk medication (Acute) Hammertoe (Chronic) chronic callus and diabetic ulcer under the second left metatarsal head due to hammertoe and bunion deformity Hypertension (Chronic) Hypertriglyceridemia (Chronic) Hypoalphalipoproteinemia (Chronic) Hypocalcemia (Chronic) Hypothyroidism (Chronic) Inflammatory arthritis (Suspected) Inflammatory arthropathy (Suspected) Morbid obesity (Chronic) Onychomycosis (Chronic) Paresthesia and pain of both upper extremities (Acute) Polyneuropathy (Chronic) Type II diabetes mellitus (Chronic) Surgical History History of back surgery (Acute) History of surgery (Acute) right foot No pertinent past surgical history (Acute) S/P carpal tunnel release (Acute) left hand Family History Other Cancer Diabetes Hypertension No pertinent family history Social History smoking status: Former smoker alcohol intake frequency: does not drink substance use type: does not use MEDS/ALLERGIES Home Medications and Allergies Home Medications Medication Instructions Recorded Confirmed Type empagliflozin 25 mg tablet 25 mg PO QHS 05/28/16 01/07/20 History levothyroxine 175 mcg tablet 175 mcg PO QDAY 05/28/16 01/07/20 History pregabalin 200 mg capsule 400 mg PO BID cap 05/28/16 01/07/20 History fenofibrate 54 mg PO QHS 11/14/19 01/07/20 History losartan 25 mg PO QAM #1 tab 11/19/19 01/07/20 Rx glipizide 10 mg tablet 5 mg PO BID tab 12/11/19 01/07/20 History hydrochlorothiazide 25 mg tablet 12.5 mg PO QDAY PRN tab 12/11/19 01/07/20 History insulin NPH isoph U-100 human 100 1 unit SUB-Q DAILY 12/11/19 01/07/20 History unit/mL (3 mL) subcutaneous pen metformin 500 mg tablet,extended 1,000 mg PO QDAY tab 12/11/19 01/07/20 History release 24 hr Atorvastatin [Lipitor] 10 mg PO HS 12/16/19 01/07/20 History oxycodone 5 mg PO Q8HP PRN 12/16/19 01/07/20 History hydrocodone-acetaminophen 1 - 2 tab PO Q6H PRN 12/25/19 01/07/20 History meloxicam 15 mg PO QAM 12/25/19 01/07/20 History Allergies Allergy/AdvReac Type Severity Reaction Status Date / Time cefazolin AdvReac Intermediate Rash Verified 01/07/20 21:10 Physical Examination Vital Signs Vital signs: Temp Pulse Resp BP Pulse Ox 37.2 C 107 H 17 95/61 90 01/08/20 08:02 01/08/20 10:02 01/08/20 10:02 01/08/20 10:02 01/08/20 10:02 Constitutional General appearance: alert and appears uncomfortable EENT ENT: other (no thrush) Respiratory Auscultation: bilateral: clear (anteriorly) Cardiovascular Cardiovascular: other (s1 s2 normal, no murmurs heard) Extremities Extremities: other (the right leg and foot are swollen. Right foot has redness distal to midfoot. No tenderness. Warm to touch with a scabed wound over ball of right great toe. No dark discoloration of right leg or thigh. Tenderness over right thigh and leg.) Results Laboratory Findings CBC and BMP: 01/08/20 07:33 01/08/20 07:33 Abnormal lab findings: Abnormal Labs 01/07/20 01/07/20 01/08/20 21:40 21:40 07:33 WBC 14.0 H 13.3 H RBC 3.28 L 3.29 L Hgb 8.8 L 8.7 L Hct 28.0 L 28.1 L RDW 15.1 H 15.2 H MPV 10.9 H 11.0 H Gran % 89.0 H 86.0 H Lymph % (Auto) 3.9 L 5.0 L Gran # 12.48 H 11.44 H Lymph # (Auto) 0.55 L 0.67 L [place] # (Auto) 0.91 H 1.10 H Sodium 130 L Chloride 94 L Carbon Dioxide 20 L BUN 51 H Creatinine 2.2 H Glucose 293 H Uric Acid Calcium GGT C-Reactive Protein Albumin 3.0 L Globulin 4.4 H Albumin/Globulin Ratio 0.7 L Triglycerides 06/23/20 06/23/20 07:33 07:33 WBC RBC Hgb Hct RDW MPV Gran % Lymph % (Auto) Gran # Lymph # (Auto) [place] # (Auto) Sodium 132 L Chloride Carbon Dioxide 20 L BUN 50 H Creatinine 1.9 H Glucose 225 H Uric Acid 8.1 H Calcium 8.4 L GGT 74 H C-Reactive Protein 22.3 H Albumin 3.1 L Globulin 4.2 H Albumin/Globulin Ratio 0.7 L Triglycerides 223 H A/P Narrative A/P Narrative: Narrative: A: 1. Right foot SSTI with concerns for underlying abscess and/or osteomyelitis - risk factors: undrained focus from last visit (could not be drained per patient's plan to go with medical management only), new infection from recent days, uncontrolled DM2 with neuropathy, MSSA colonization 2. Sepsis with shock: sec to (1) - now off pressors 3. KEN: sec to sepsis, ? diabetes Recommendations: - MR of right foot and leg w/o contrast - Start IV Daptomycin 1000 mg q24 hrs (~8 mg/kg) - Continue IV Zosyn at 3.375 gm q8 hrs - will deesclate Cx based on culture data - MSSA decolonization with 2% intranasal mupirocin bid and once daily below neck whole body CHG wipes x 5 days - MRSA nasal PCR - Spoke with Dr House about eval for surgical debridement, and obtaining bone Bx from possible focus of OM (as noted at last MRI) will follow Maulik Lofton MD Infectious diseases Time Spent With Patient Time: Total time spent is greater than 50% in coordination of care (as documented) at patient's floor/unit and/or counseling patient:
--- NOTE | 2020-01-08 11:05 | Transfer Summary ---
Discharge Provider Provider Patient information: Note initiated : 01/08/20 at 11:00 am Service Date, if different from initiated Date: [] Patient: Ahmet Zelaya 39 y/o M admitted on 01/08/20 for weakness, confusion, vomiting. Chief Complaint: [] Date of admission: 01/08/20 01:06 Discharge date: 01/08/20 Primary care physician: Braden Gregory Consults: 01/08/20 Consult to Physician [CONS] Stat Comment: Consulting Provider: Bakari Orozco Reason For Exam: Physician to Consult 01/08/20 07:25 Consult to Physician [CONS] Routine Comment: Consulting Provider: Robert House Reason For Exam: Physician to Consult Consult to Physician [CONS] Routine Comment: Consulting Provider: Maulik Lofton Reason For Exam: Physician to Consult 01/08/20 08:35 Consult to Physician [CONS] Routine Comment: Consulting Provider: Dash Manuel Reason For Exam: distal foot wound Discharge Meds Discharge Medications Active and Home Medications: Home Medications empagliflozin 25 mg tablet 25 mg PO QHS 05/28/16 [History Confirmed 01/07/20 Last Taken 12/25/19] levothyroxine 175 mcg tablet 175 mcg PO QDAY 05/28/16 [History Confirmed 01/07/20 Last Taken 12/25/19] pregabalin 200 mg capsule 400 mg PO BID cap 05/28/16 [History Confirmed 01/07/20 Last Taken 12/25/19] fenofibrate 54 mg PO QHS 11/14/19 [History Confirmed 01/07/20 Last Taken 12/25/19] losartan 25 mg PO QAM #1 tab 11/19/19 [Rx Confirmed 01/07/20 Last Taken 12/25/19] glipizide 10 mg tablet 5 mg PO BID tab 12/11/19 [History Confirmed 01/07/20 Last Taken 12/25/19] hydrochlorothiazide 25 mg tablet 12.5 mg PO QDAY PRN tab 12/11/19 [History Confirmed 01/07/20 Last Taken 12/25/19] insulin NPH isoph U-100 human 100 unit/mL (3 mL) subcutaneous pen 1 unit SUB-Q DAILY 12/11/19 [History Confirmed 01/07/20 Last Taken 12/25/19] metformin 500 mg tablet,extended release 24 hr 1,000 mg PO QDAY tab 12/11/19 [History Confirmed 01/07/20 Last Taken 12/25/19] Atorvastatin [Lipitor] 10 mg PO HS 12/16/19 [History Confirmed 01/07/20 Last Taken 12/25/19] oxycodone 5 mg PO Q8HP PRN 12/16/19 [History Confirmed 01/07/20 Last Taken 12/26/19 05:15] hydrocodone-acetaminophen 1 - 2 tab PO Q6H PRN 12/25/19 [History Confirmed Last Taken 12/26/19 05:15] meloxicam 15 mg PO QAM 12/25/19 [History Confirmed 01/07/20 Last Taken 12/25/19] COURSE Hospital Course Hospital Course: History of present illness: Mr. Zelaya is a 39 year old M Who has been dealing with diabetic foot infection and abscesses for the past several months presents the ED because he feels weak and states he had some confusion, an episode of nausea vomiting after dinner last night. His right lower extremity is swollen and painful up to the thigh. He feels feels similar to when he previously developed sepsis. No fevers and chills at home Had a recent MRI which showed possible osteomyelitis but not definitive. He did have a I&D of an abscess in the foot earlier in the month. Does have hardware in place from previous foot surgeries related to Charcot foot. Patient has been hospitalized several times in the past couple months and is several I&D's. Disease been following him patient was initially on cefazolin but had an adverse reaction and subsequently switched to daptomycin. Only on Zosyn. Clinically improving since admission last night. Case discussed with pv design engineer Dr. House and Dr. manuel< the wound care surgeon. Bot felt the patient at this point it too complicated for our facility/services available and needs higher level of care, may potentially need vascular evaluation, may need to hardware removal. May potentially need amputation. Discussed case with hospitalist at [facility] Dr. Alvarado, who graciously excepted the patient A: *DM foot (Right) infection, recurrent: -h/o MSSA *Septic Shock: resolved -brief period of vasopressors support *KEN: 2/2 sepsis endorgan dysfunction -slowly improving *AMS: 2/2 sepsis endorgan dysfunction -Resolved *Anemia,chronic: *DM II w/neuropathy: *Morbid obesity: *HTN: on HCTZ and Losartan at home *Degenerative joint disease: *Chronic T/L spine pain: *Hypothyroidism: on thyroxine at home *Hyponatremia: slowly improving Plan: -After discussion with pv design engineer and wound care surgeon patient needs higher level of care -Per ID pt started on daptomycin, continue Zosyn for now -pending MRI, RLE u/s -avoid nephrotoxins -basal and SSI, metformin held -HCTZ/ARB held for KEN and BP Discharge diagnosis: Recurrent diabetic leg infection of the right foot, sepsis, KEN Secondary discharge diagnosis: Obesity diabetes hypertension Charcot foot hypothyroidism Time Spent with Patient Time attestation: Total time spent providing and/or coordinating discharge services: Time spent: Greater than 30 minutes EXAM Constitutional Vitals: Temp Pulse Resp BP Pulse Ox 98.9 F 107 H 17 95/61 90 01/08/20 08:02 01/08/20 10:02 01/08/20 10:02 01/08/20 10:02 01/08/20 10:02 Discharge Data Data Completed and Pending Labs on day of discharge: Labs from last 24 hours 01/08/20 01/08/20 01/08/20 07:33 07:33 07:33 WBC RBC Hgb Hct MCV MCH MCHC RDW Plt Count MPV Gran % Lymph % (Auto) [place] % (Auto) Eos % (Auto) Baso % (Auto) Gran # Lymph # (Auto) [place] # (Auto) Eos # (Auto) Baso # (Auto) ESR Pending VBG Lactic Acid Sodium 132 L Potassium 4.2 Chloride 100 Carbon Dioxide 20 L Anion Gap 12.0 BUN 50 H Creatinine 1.9 H GFR Calculation 43 Glucose 225 H Uric Acid 8.1 H Calcium 8.4 L Phosphorus 3.4 Magnesium 1.9 Total Bilirubin 0.4 Direct Bilirubin 0.2 GGT 74 H AST 16 ALT 16 Alkaline Phosphatase 48 Lactate Dehydrogenase 164 C-Reactive Protein 22.3 H Total Protein 7.3 Albumin 3.1 L Globulin 4.2 H Albumin/Globulin Ratio 0.7 L Triglycerides 223 H Procalcitonin 01/08/20 01/07/20 01/07/20 07:33 21:40 21:40 WBC 13.3 H RBC 3.29 L Hgb 8.7 L Hct 28.1 L MCV 85.4 MCH 26.4 MCHC 31.0 RDW 15.2 H Plt Count 256 MPV 11.0 H Gran % 86.0 H Lymph % (Auto) 5.0 L [place] % (Auto) 8.3 Eos % (Auto) 0.5 Baso % (Auto) 0.2 Gran # 11.44 H Lymph # (Auto) 0.67 L [place] # (Auto) 1.10 H Eos # (Auto) 0.06 Baso # (Auto) 0.03 ESR VBG Lactic Acid 1.4 Sodium Potassium Chloride Carbon Dioxide Anion Gap BUN Creatinine GFR Calculation Glucose Uric Acid Calcium Phosphorus Magnesium Total Bilirubin Direct Bilirubin GGT AST ALT Alkaline Phosphatase Lactate Dehydrogenase C-Reactive Protein Total Protein Albumin Globulin Albumin/Globulin Ratio Triglycerides Procalcitonin 4.19 01/07/20 01/07/20 21:40 21:40 WBC 14.0 H RBC 3.28 L Hgb 8.8 L Hct 28.0 L MCV 85.4 MCH 26.8 MCHC 31.4 RDW 15.1 H Plt Count 237 MPV 10.9 H Gran % 89.0 H Lymph % (Auto) 3.9 L [place] % (Auto) 6.5 Eos % (Auto) 0.4 Baso % (Auto) 0.2 Gran # 12.48 H Lymph # (Auto) 0.55 L [place] # (Auto) 0.91 H Eos # (Auto) 0.06 Baso # (Auto) 0.03 ESR VBG Lactic Acid Sodium 130 L Potassium 4.3 Chloride 94 L Carbon Dioxide 20 L Anion Gap 16.0 BUN 51 H Creatinine 2.2 H GFR Calculation 36 Glucose 293 H Uric Acid Calcium 8.9 Phosphorus Magnesium 1.7 Total Bilirubin 0.4 Direct Bilirubin GGT AST 17 ALT 17 Alkaline Phosphatase 49 Lactate Dehydrogenase C-Reactive Protein Total Protein 7.4 Albumin 3.0 L Globulin 4.4 H Albumin/Globulin Ratio 0.7 L Triglycerides Procalcitonin Discharge Plan Patient/Caregiver Discharge Instructions Prescriptions: No Action pregabalin [Lyrica] 200 mg capsule 400 mg PO BID RF: 0 levothyroxine 175 mcg tablet 175 mcg PO QDAY RF: 0 empagliflozin [Jardiance] 25 mg tablet 25 mg PO QHS RF: 0 glipizide 10 mg tablet 5 mg PO BID RF: 0 metformin 500 mg tablet extended release 24 hr 1,000 mg PO QDAY RF: 0 insulin NPH isoph U-100 human 100 unit/mL (3 mL) insulin pen 1 unit SUB-Q DAILY RF: 0 hydrochlorothiazide 25 mg tablet 12.5 mg PO QDAY PRN (Reason: Blood Pressure) RF: 0 fenofibrate 54 mg tablet 54 mg PO QHS RF: 0 losartan 50 MG tablet 25 mg PO QAM Qty: 1 RF: 0 oxycodone 5 MG tablet 5 mg PO Q8HP PRN (Reason: Pain) RF: 0 Atorvastatin [Lipitor] 10 MG tablet 10 mg PO HS RF: 0 meloxicam 15 MG tablet 15 mg PO QAM RF: 0 hydrocodone-acetaminophen 1 TAB tablet 1 - 2 tab PO Q6H PRN (Reason: Pain) RF: 0 Follow Up Plan Follow up with: Jose Gregory MD [Primary Care Provider] - Disposition: Xfer Acute Care Hospital Discharge Orders: Discharge Order (Routine); Ordered 01/08/20 Ordered By: Bakari Orozco
--- NOTE | 2020-01-08 11:20 | General Surgery Consult Note ---
HPI Data of Consult Primary Care Provider: Braden Gregory Consult Narrative Patient Information: Note initiated : 01/08/20 at 11:18 am Service Date, if different from initiated Date: [] Patient: Ahmet Zelaya 39 y/o M admitted on 01/08/20 for weakness, confusion, vomiting. Chief Complaint: [] Chief complaint: Wound Care Evaluation and Recommendations about further management. cc:: CC: Bakari Orozco I saw this patient in Room [address] Robert House, Maria Dolores [facility] ICU and Greta BLOOM In Patient Wound care Nurse. Reviewed circumstantial details pertaining to this admission. I know this patient well from his prior admission and subsequent treatment at wound care and [facility] center. There were interval changes and developments over the week end. Patient had been out walking full weight bearing on his feet. Developed Swelling, Erythema, Warmth and Drainage from his reconstructed RIGHT foot and ankle region. He was febrile, confused, diaphoretic . Uncontrolled blood sugars and evolving SEPSIS (SIRS) when admitted to hospital. [facility] Medical History Abnormal immunological finding in serum (Chronic) Abnormal liver enzymes (Chronic) Acquired hallux varus of left foot (Chronic) Angioedema (Chronic) Back pain (Chronic) Carpal tunnel syndrome (Chronic) Chronic back pain (Chronic) Encounter for long-term current use of high risk medication (Acute) Hammertoe (Chronic) chronic callus and diabetic ulcer under the second left metatarsal head due to hammertoe and bunion deformity Hypertension (Chronic) Hypertriglyceridemia (Chronic) Hypoalphalipoproteinemia (Chronic) Hypocalcemia (Chronic) Hypothyroidism (Chronic) Inflammatory arthritis (Suspected) Inflammatory arthropathy (Suspected) Morbid obesity (Chronic) Onychomycosis (Chronic) Paresthesia and pain of both upper extremities (Acute) Polyneuropathy (Chronic) Type II diabetes mellitus (Chronic) Surgical History History of back surgery (Acute) History of surgery (Acute) right foot No pertinent past surgical history (Acute) S/P carpal tunnel release (Acute) left hand Family History Other Cancer Diabetes Hypertension No pertinent family history Social History smoking status: Former smoker alcohol intake frequency: does not drink substance use type: does not use MEDS/ALLERGIES Home Medications and Allergies Home Medications Medication Instructions Recorded Confirmed Type empagliflozin 25 mg tablet 25 mg PO QHS 05/28/16 01/07/20 History levothyroxine 175 mcg tablet 175 mcg PO QDAY 05/28/16 01/07/20 History pregabalin 200 mg capsule 400 mg PO BID cap 05/28/16 01/07/20 History fenofibrate 54 mg PO QHS 11/14/19 01/07/20 History losartan 25 mg PO QAM #1 tab 11/19/19 01/07/20 Rx glipizide 10 mg tablet 5 mg PO BID tab 12/11/19 01/07/20 History hydrochlorothiazide 25 mg tablet 12.5 mg PO QDAY PRN tab 12/11/19 01/07/20 History insulin NPH isoph U-100 human 100 1 unit SUB-Q DAILY 12/11/19 01/07/20 History unit/mL (3 mL) subcutaneous pen metformin 500 mg tablet,extended 1,000 mg PO QDAY tab 12/11/19 01/07/20 History release 24 hr Atorvastatin [Lipitor] 10 mg PO HS 12/16/19 01/07/20 History oxycodone 5 mg PO Q8HP PRN 12/16/19 01/07/20 History hydrocodone-acetaminophen 1 - 2 tab PO Q6H PRN 12/25/19 01/07/20 History meloxicam 15 mg PO QAM 12/25/19 01/07/20 History Allergies Allergy/AdvReac Type Severity Reaction Status Date / Time cefazolin AdvReac Intermediate Rash Verified 01/07/20 21:10 Physical Examination Vital Signs Vital signs: Temp Pulse Resp BP Pulse Ox 98.9 F 107 H 17 95/61 90 01/08/20 08:02 01/08/20 10:02 01/08/20 10:02 01/08/20 10:02 01/08/20 10:02 General physical appearance General physical exam: well developed and other (Confused with poor attention span. Repeating words. ) Eyes Eye exam: PERRL and normal ocular movement ENT ENT exam: normal pinna, normal nares, normal mucosa and no congestion Head Head exam IM: Present atraumatic and normal inspection Neck Neck exam: no masses, no bruits, trachea midline and no venous distension Cardiovascular Cardiovascular exam IM: Present normal rate and rhythm and tachycardia Respiratory Respiratory exam: normal respiratory effort and other (Decreased breath sounds at bases) Abdomen Abdomen: Present soft, non tender and bowel sounds Integumentary Integumentary: Present other (ACUTE INFLAMMATION involving RIGHT foot, ankle and extending upto lower leg. Swelling, WARMTH, DRAINAGE, TTP, some odor) Neurologic Neurologic: Present other (Diabetes with peripheral neuropathy) Musculoskeletal Musculoskeletal: Present other (Charcot foot deformities both feet and psot surgical changes with hardware RIGHT foot ) Psychiatric Psychiatric: Present other (Variable attention span and confused at times.) Results Labs Result diagrams: 01/08/20 07:33 01/08/20 07:33 Labs: Abnormal lab results 01/07/20 01/07/20 01/08/20 Range/Units 21:40 21:40 07:33 WBC 14.0 H 13.3 H (4.50-11.00) K/mcL RBC 3.28 L 3.29 L (4.63-6.08) M/mcL Hgb 8.8 L 8.7 L (13.7-17.5) g/dL Hct 28.0 L 28.1 L (40.1-51.0) % RDW 15.1 H 15.2 H (11.5-14.5) % MPV 10.9 H 11.0 H (7.4-10.4) fL Gran % 89.0 H 86.0 H (38.0-78.0) % Lymph % (Auto) 3.9 L 5.0 L (15.5-49.0) % Gran # 12.48 H 11.44 H (1.80-8.00) K/mcL Lymph # (Auto) 0.55 L 0.67 L (1.50-4.80) K/mcL [place] # (Auto) 0.91 H 1.10 H (0.10-0.90) K/mcL Sodium 130 L (133-145) mmol/L Chloride 94 L (96-108) mmol/L Carbon Dioxide 20 L (22-30) mmol/L BUN 51 H (6-20) mg/dl Creatinine 2.2 H (0.7-1.2) mg/dl Glucose 293 H (70-105) mg/dL Uric Acid (2.5-8.0) mg/dL Calcium (8.6-10.4) mg/dl GGT (8-61) U/L C-Reactive Protein (0.0-0.8) mg/dl Albumin 3.0 L (3.2-5.2) gm/dL Globulin 4.4 H (2.2-3.7) gm/dL Albumin/Globulin Ratio 0.7 L (1.0-2.3) Triglycerides (<150) mg/dl 01/08/20 01/08/20 Range/Units 07:33 07:33 WBC (4.50-11.00) K/mcL RBC (4.63-6.08) M/mcL Hgb (13.7-17.5) g/dL Hct (40.1-51.0) % RDW (11.5-14.5) % MPV (7.4-10.4) fL Gran % (38.0-78.0) % Lymph % (Auto) (15.5-49.0) % Gran # (1.80-8.00) K/mcL Lymph # (Auto) (1.50-4.80) K/mcL [place] # (Auto) (0.10-0.90) K/mcL Sodium 132 L (133-145) mmol/L Chloride (96-108) mmol/L Carbon Dioxide 20 L (22-30) mmol/L BUN 50 H (6-20) mg/dl Creatinine 1.9 H (0.7-1.2) mg/dl Glucose 225 H (70-105) mg/dL Uric Acid 8.1 H (2.5-8.0) mg/dL Calcium 8.4 L (8.6-10.4) mg/dl GGT 74 H (8-61) U/L C-Reactive Protein 22.3 H (0.0-0.8) mg/dl Albumin 3.1 L (3.2-5.2) gm/dL Globulin 4.2 H (2.2-3.7) gm/dL Albumin/Globulin Ratio 0.7 L (1.0-2.3) Triglycerides 223 H (<150) mg/dl Diabetes panel 01/07/20 01/08/20 Range/Units 21:40 07:33 Sodium 130 L 132 L (133-145) mmol/L Potassium 4.3 4.2 (3.3-5.1) mmol/L Chloride 94 L 100 (96-108) mmol/L Carbon Dioxide 20 L 20 L (22-30) mmol/L BUN 51 H 50 H (6-20) mg/dl Creatinine 2.2 H 1.9 H (0.7-1.2) mg/dl Glucose 293 H 225 H (70-105) mg/dL Calcium 8.9 8.4 L (8.6-10.4) mg/dl AST 17 16 (0-37) U/l ALT 17 16 (0-40) U/l Alkaline Phosphatase 49 48 (39-117) U/L Total Protein 7.4 7.3 (5.9-8.4) gm/dL Albumin 3.0 L 3.1 L (3.2-5.2) gm/dL Triglycerides 223 H (<150) mg/dl Calcium panel 01/07/20 01/08/20 Range/Units 21:40 07:33 Calcium 8.9 8.4 L (8.6-10.4) mg/dl Phosphorus 3.4 (2.7-4.5) mg/dL Albumin 3.0 L 3.1 L (3.2-5.2) gm/dL Pituitary panel 01/07/20 01/08/20 Range/Units 21:40 07:33 Sodium 130 L 132 L (133-145) mmol/L Potassium 4.3 4.2 (3.3-5.1) mmol/L Chloride 94 L 100 (96-108) mmol/L Carbon Dioxide 20 L 20 L (22-30) mmol/L BUN 51 H 50 H (6-20) mg/dl Creatinine 2.2 H 1.9 H (0.7-1.2) mg/dl Glucose 293 H 225 H (70-105) mg/dL Calcium 8.9 8.4 L (8.6-10.4) mg/dl Adrenal panel 01/07/20 01/08/20 Range/Units 21:40 07:33 Sodium 130 L 132 L (133-145) mmol/L Potassium 4.3 4.2 (3.3-5.1) mmol/L Chloride 94 L 100 (96-108) mmol/L Carbon Dioxide 20 L 20 L (22-30) mmol/L BUN 51 H 50 H (6-20) mg/dl Creatinine 2.2 H 1.9 H (0.7-1.2) mg/dl Glucose 293 H 225 H (70-105) mg/dL Calcium 8.9 8.4 L (8.6-10.4) mg/dl Total Bilirubin 0.4 0.4 (0.0-1.0) mg/dL AST 17 16 (0-37) U/l ALT 17 16 (0-40) U/l Alkaline Phosphatase 49 48 (39-117) U/L Total Protein 7.4 7.3 (5.9-8.4) gm/dL Albumin 3.0 L 3.1 L (3.2-5.2) gm/dL All other labs normal. A/P Narrative A/P Narrative: Narrative:SEPSIS, Systemic Inflammatory Response Syndrome. SOURCE Right foot and leg ?? Underlying PAD Uncontrolled diabetes Altered mental Status Morbid Obesity Peripheral Neuropathy ?? PAD Reviewed lab results. Reviewed MRI PLAN: Recommend Higher level of care ( [place] or [facility] ) Patient needs coordinated services of Hospitalist, Leather Repairer, Orthopedics, Fig Bar Machine Operator and possibly Vascular Leather Repairer Will speak with Hospitalist Physician and Patient's . Time Spent With Patient Time: Total time spent is greater than 50% in coordination of care (as documented) at patient's floor/unit and/or counseling patient: Total time spent with greater than 50% in coordination of care (as documented) at patient's floor/unit and/or counseling patient:: Greater than 35 minutes
--- NOTE | 2020-01-08 11:53 | General Surgery Consult Note ---
HPI Data of Consult Primary Care Provider: Braden Gregory Consult Narrative Patient Information: Note initiated : 01/08/20 at 11:50 am Service Date, if different from initiated Date: [] Patient: Ahmet Zelaya 39 y/o M admitted on 01/08/20 for weakness, confusion, vomiting. Chief Complaint: [] cc:: CC: Bakari Orozco [facility] Medical History Abnormal immunological finding in serum (Chronic) Abnormal liver enzymes (Chronic) Acquired hallux varus of left foot (Chronic) Angioedema (Chronic) Back pain (Chronic) Carpal tunnel syndrome (Chronic) Chronic back pain (Chronic) Encounter for long-term current use of high risk medication (Acute) Hammertoe (Chronic) chronic callus and diabetic ulcer under the second left metatarsal head due to hammertoe and bunion deformity Hypertension (Chronic) Hypertriglyceridemia (Chronic) Hypoalphalipoproteinemia (Chronic) Hypocalcemia (Chronic) Hypothyroidism (Chronic) Inflammatory arthritis (Suspected) Inflammatory arthropathy (Suspected) Morbid obesity (Chronic) Onychomycosis (Chronic) Paresthesia and pain of both upper extremities (Acute) Polyneuropathy (Chronic) Type II diabetes mellitus (Chronic) Surgical History History of back surgery (Acute) History of surgery (Acute) right foot No pertinent past surgical history (Acute) S/P carpal tunnel release (Acute) left hand Family History Other Cancer Diabetes Hypertension No pertinent family history Social History (Updated 12/12/19 @ 11:24 by Maulik Lofton MD) smoking status: Former smoker alcohol intake frequency: does not drink substance use type: does not use MEDS/ALLERGIES Home Medications and Allergies Home Medications Medication Instructions Recorded Confirmed Type empagliflozin 25 mg tablet 25 mg PO QHS 05/28/16 01/07/20 History levothyroxine 175 mcg tablet 175 mcg PO QDAY 05/28/16 01/07/20 History pregabalin 200 mg capsule 400 mg PO BID cap 05/28/16 01/07/20 History fenofibrate 54 mg PO QHS 11/14/19 01/07/20 History losartan 25 mg PO QAM #1 tab 11/19/19 01/07/20 Rx glipizide 10 mg tablet 5 mg PO BID tab 12/11/19 01/07/20 History hydrochlorothiazide 25 mg tablet 12.5 mg PO QDAY PRN tab 12/11/19 01/07/20 History insulin NPH isoph U-100 human 100 1 unit SUB-Q DAILY 12/11/19 01/07/20 History unit/mL (3 mL) subcutaneous pen metformin 500 mg tablet,extended 1,000 mg PO QDAY tab 12/11/19 01/07/20 History release 24 hr Atorvastatin [Lipitor] 10 mg PO HS 12/16/19 01/07/20 History oxycodone 5 mg PO Q8HP PRN 12/16/19 01/07/20 History hydrocodone-acetaminophen 1 - 2 tab PO Q6H PRN 12/25/19 01/07/20 History meloxicam 15 mg PO QAM 12/25/19 01/07/20 History Allergies Allergy/AdvReac Type Severity Reaction Status Date / Time cefazolin AdvReac Intermediate Rash Verified 01/07/20 21:10 Physical Examination Vital Signs Vital signs: Temp Pulse Resp BP Pulse Ox 98.9 F 107 H 17 95/61 90 01/08/20 08:02 01/08/20 10:02 01/08/20 10:02 01/08/20 10:02 01/08/20 10:02 Results Labs Result diagrams: 01/08/20 07:33 01/08/20 07:33 Labs: Abnormal lab results 01/07/20 01/07/20 01/08/20 Range/Units 21:40 21:40 07:33 WBC 14.0 H 13.3 H (4.50-11.00) K/mcL RBC 3.28 L 3.29 L (4.63-6.08) M/mcL Hgb 8.8 L 8.7 L (13.7-17.5) g/dL Hct 28.0 L 28.1 L (40.1-51.0) % RDW 15.1 H 15.2 H (11.5-14.5) % MPV 10.9 H 11.0 H (7.4-10.4) fL Gran % 89.0 H 86.0 H (38.0-78.0) % Lymph % (Auto) 3.9 L 5.0 L (15.5-49.0) % Gran # 12.48 H 11.44 H (1.80-8.00) K/mcL Lymph # (Auto) 0.55 L 0.67 L (1.50-4.80) K/mcL [place] # (Auto) 0.91 H 1.10 H (0.10-0.90) K/mcL ESR (0-15) mm/hr Sodium 130 L (133-145) mmol/L Chloride 94 L (96-108) mmol/L Carbon Dioxide 20 L (22-30) mmol/L BUN 51 H (6-20) mg/dl Creatinine 2.2 H (0.7-1.2) mg/dl Glucose 293 H (70-105) mg/dL Uric Acid (2.5-8.0) mg/dL Calcium (8.6-10.4) mg/dl GGT (8-61) U/L C-Reactive Protein (0.0-0.8) mg/dl Albumin 3.0 L (3.2-5.2) gm/dL Globulin 4.4 H (2.2-3.7) gm/dL Albumin/Globulin Ratio 0.7 L (1.0-2.3) Triglycerides (<150) mg/dl 01/08/20 01/08/20 01/08/20 Range/Units 07:33 07:33 07:33 WBC (4.50-11.00) K/mcL RBC (4.63-6.08) M/mcL Hgb (13.7-17.5) g/dL Hct (40.1-51.0) % RDW (11.5-14.5) % MPV (7.4-10.4) fL Gran % (38.0-78.0) % Lymph % (Auto) (15.5-49.0) % Gran # (1.80-8.00) K/mcL Lymph # (Auto) (1.50-4.80) K/mcL [place] # (Auto) (0.10-0.90) K/mcL ESR > 120 H (0-15) mm/hr Sodium 132 L (133-145) mmol/L Chloride (96-108) mmol/L Carbon Dioxide 20 L (22-30) mmol/L BUN 50 H (6-20) mg/dl Creatinine 1.9 H (0.7-1.2) mg/dl Glucose 225 H (70-105) mg/dL Uric Acid 8.1 H (2.5-8.0) mg/dL Calcium 8.4 L (8.6-10.4) mg/dl GGT 74 H (8-61) U/L C-Reactive Protein 22.3 H (0.0-0.8) mg/dl Albumin 3.1 L (3.2-5.2) gm/dL Globulin 4.2 H (2.2-3.7) gm/dL Albumin/Globulin Ratio 0.7 L (1.0-2.3) Triglycerides 223 H (<150) mg/dl Diabetes panel 01/07/20 01/08/20 Range/Units 21:40 07:33 Sodium 130 L 132 L (133-145) mmol/L Potassium 4.3 4.2 (3.3-5.1) mmol/L Chloride 94 L 100 (96-108) mmol/L Carbon Dioxide 20 L 20 L (22-30) mmol/L BUN 51 H 50 H (6-20) mg/dl Creatinine 2.2 H 1.9 H (0.7-1.2) mg/dl Glucose 293 H 225 H (70-105) mg/dL Calcium 8.9 8.4 L (8.6-10.4) mg/dl AST 17 16 (0-37) U/l ALT 17 16 (0-40) U/l Alkaline Phosphatase 49 48 (39-117) U/L Total Protein 7.4 7.3 (5.9-8.4) gm/dL Albumin 3.0 L 3.1 L (3.2-5.2) gm/dL Triglycerides 223 H (<150) mg/dl Calcium panel 01/07/20 01/08/20 Range/Units 21:40 07:33 Calcium 8.9 8.4 L (8.6-10.4) mg/dl Phosphorus 3.4 (2.7-4.5) mg/dL Albumin 3.0 L 3.1 L (3.2-5.2) gm/dL Pituitary panel 01/07/20 01/08/20 Range/Units 21:40 07:33 Sodium 130 L 132 L (133-145) mmol/L Potassium 4.3 4.2 (3.3-5.1) mmol/L Chloride 94 L 100 (96-108) mmol/L Carbon Dioxide 20 L 20 L (22-30) mmol/L BUN 51 H 50 H (6-20) mg/dl Creatinine 2.2 H 1.9 H (0.7-1.2) mg/dl Glucose 293 H 225 H (70-105) mg/dL Calcium 8.9 8.4 L (8.6-10.4) mg/dl Adrenal panel 01/07/20 01/08/20 Range/Units 21:40 07:33 Sodium 130 L 132 L (133-145) mmol/L Potassium 4.3 4.2 (3.3-5.1) mmol/L Chloride 94 L 100 (96-108) mmol/L Carbon Dioxide 20 L 20 L (22-30) mmol/L BUN 51 H 50 H (6-20) mg/dl Creatinine 2.2 H 1.9 H (0.7-1.2) mg/dl Glucose 293 H 225 H (70-105) mg/dL Calcium 8.9 8.4 L (8.6-10.4) mg/dl Total Bilirubin 0.4 0.4 (0.0-1.0) mg/dL AST 17 16 (0-37) U/l ALT 17 16 (0-40) U/l Alkaline Phosphatase 49 48 (39-117) U/L Total Protein 7.4 7.3 (5.9-8.4) gm/dL Albumin 3.0 L 3.1 L (3.2-5.2) gm/dL All other labs normal. A/P Narrative A/P Narrative: Narrative: Time Spent With Patient Time: Total time spent is greater than 50% in coordination of care (as documented) at patient's floor/unit and/or counseling patient:
--- NOTE | 2020-01-08 13:16 | Ultrasound Report ---
CLINICAL INFORMATION: Leg pain and swelling COMPARISON: None. FINDINGS: The entire deep venous system including the common femoral, superficial femoral, popliteal and paired trifurcation calf veins are easily compressible and show normal venous blood flow on color and spectral Doppler. No evidence of thrombus IMPRESSION: Negative exam - no evidence of deep vein thrombosis. Interpreted and Authenticated by: Js Jasso 01/08/20
[2020-01-08] MEDS: INSULIN LISPRO 1 UNIT/0.01 ML UNIT SQ SCH ×2 (13:18→17:43)
[2020-01-08] MEDS ORDERED: 0.9 % SODIUM CHLORIDE 10 ML SYRINGE IV SCH (14:00)
[2020-01-08] MEDS ORDERED: hydrOXYzine 25 MG TABLET PO ONE (17:00)
[2020-01-08] MEDS ORDERED: PREGABALIN 100 MG CAPSULE PO SCH (21:00)
[2020-01-08] MEDS ORDERED: HEPARIN 5,000 UNIT/ML VIAL SQ SCH (21:00)
[2020-01-08] MEDS ORDERED: DOCUSATE SODIUM 100 MG CAPSULE PO SCH (21:00)
[2020-01-08] MEDS ORDERED: ATORVASTATIN 10 MG TABLET PO SCH (21:00)
[2020-01-08] MEDS ORDERED: FENOFIBRATE 43 MG CAPSULE PO SCH (21:00)
[2020-01-09] MEDS ORDERED: LEVOTHYROXINE 75 MCG TABLET PO SCH (07:30)
[2020-01-09] MEDS ORDERED: LEVOTHYROXINE 100 MCG TABLET PO SCH (07:30)
[2020-01-09] MEDS ORDERED: LEVOTHYROXINE SODIUM 175 MCG TABLET PO SCH (09:00)
[2020-01-09] MEDS ORDERED: INSULIN NPH ISOPH U HUMAN SUB-Q SCH (09:00)
--- NOTE | 2020-01-09 09:05 | Magnetic Resonance Report ---
CLINICAL INFORMATION: Hindfoot and midfoot pain with swelling and erythema. Evaluate for osteomyelitis and abscess. History of fusion between the talus, navicular medial cuneiform and first metatarsal. Second fusion between the calcaneus and cuboid COMPARISON: Plain films 07/25/2018. MRI one week ago 12/31/2019 FINDINGS: A long screw extends from the talar head/neck through the edge of a sclerotic navicular into the medial cuneiform and throughout first metatarsal. Screw likely disrupts the articular surface of the first metatarsal impinging the first MTP joint. The screw is fractured in the talar neck region - as previously seen. Elevated intramedullary signal within the talar head and neck surrounding the screw extends into the talar dome is intact.. This could indicate edema or osteomyelitis. The navicular is diminutive, sclerotic and displaced medially compatible Charcot changes. There is increased signal in all of the cuneiform cuboid which are eroded diminutive and irregular suspicious for Charcot changes and osteomyelitis. A second long screw extending from the calcaneus through the central cuboid. The screw tip disrupts the cuboid cortex extending into the fourth MTT interspace. There is inflammation within the interspace which is adjacent to a small fluid collection extending the plantar fascial cutaneous surface. Multiple loculated fluid collections, in the dorsal soft tissues of the midfoot, have increased in size and number from the previous exam. Smaller loculated fluid collections are seen in the plantar soft tissues at associated plantar fasciitis.. There is also moderate cellulitis diffusely throughout the ankle and foot. Findings are highly suspicious for diffuse osteomyelitis throughout the midfoot with multiple abscesses in the adjacent dorsal soft tissues. Moderate narrowing of the first MTP joint with associated large periarticular fluid collection suggestive of progressive septic arthritis.Hammertoe deformities seen in the second through fifth digits. Moderate fluid in all flexor and extensor tendon sheaths is a new finding suspicious for tenosynovitis. IMPRESSION: 1. Fractured get previously providing fusion throughout the first metatarsal, medial cuneiform lateral edge of the navicular and talus. The navicular is sclerotic, undergoing Charcot changes, and displaced medially. It is not transfixed by the screw. In addition, there is increased signal within the distal talus and medial cuneiform compatible with osteomyelitis. There is also likely osteomyelitis of the first metatarsal but magnetic susceptibly artifact from the screw obscures the marrow signal. In addition, there are erosive changes with increased signal in the middle and lateral cuneiform compatible with osteomyelitis. Findings have progressed since the MR one week prior. 2. Single screw extending from the calcaneus through the central cuboid. The tip extends through the articular surface of the cuboid into the fourth intertarsal inciting inflammatory response extending to the cutaneous surface. There is increased signal within the distal calcaneus suspicion for osteomyelitis. 3. Multiple large lobulated fluid collections in the midfoot predominantly the dorsal soft tissues which range up to 5 cm. They are suspicious for abscesses. A few smaller fluid collection seen in the plantar soft tissues was also plantar fasciitis. Diffuse cellulitis is also noted. This is progressed considerably since MR one week prior Interpreted and Authenticated by: Js Jasso 01/09/20
--- NOTE | 2020-01-09 11:39 | Magnetic Resonance Report ---
CLINICAL INFORMATION: deep infection COMPARISON: TECHNIQUE: Axial T1 STIR coronal T1 and STIR and sagittal T1 STIR weighted images were obtained through the calf FINDINGS: Marked atrophy of all calf musculature bilaterally with patchy increased signal is compatible with edema or less likely myositis. Moderate fluid in the deep subcutaneous fat, adjacent to the investing fascia bilaterally, could indicate cellulitis or edema. Patchy edema seen throughout the remainder of the subcutaneous fat. The marrow signal is normal in the tibia and fibula - no evidence of osteomyelitis. Tibiofemoral joints are well visualized and are normal with alignment without arthritic change menisci and internal ligaments are normal. IMPRESSION: 1. No evidence of osteomyelitis or discrete abscess. 2. Moderate atrophy throughout the calf muscles are bilaterally with increased signal which could indicate edema or less likely myositis/fasciitis. 3. Moderate amount of fluid seen in the subcutaneous fat, adjacent to the investing fascia, bilaterally either cellulitis or edema. Interpreted and Authenticated by: Js Jasso 01/09/20
--- NOTE | 2020-01-14 08:26 | Orthopedic Consult Note ---
HPI Data of Consult Primary Care Provider: Braden Gregory Consult Narrative Patient Information: Note initiated : 01/14/20 at 8:21 am Service Date, if different from initiated Date: [] Patient: Ahmet Zelaya 39 y/o M admitted on 01/08/20 for weakness, confusion, vomiting. Chief Complaint: [redness to foot with nausea] cc:: CC: Bakari Orozco Review of Systems Review of systems: Confusion, sweats PFSH PFSH Medical History Abnormal immunological finding in serum (Chronic) Abnormal liver enzymes (Chronic) Acquired hallux varus of left foot (Chronic) Angioedema (Chronic) Back pain (Chronic) Carpal tunnel syndrome (Chronic) Chronic back pain (Chronic) Encounter for long-term current use of high risk medication (Acute) Hammertoe (Chronic) chronic callus and diabetic ulcer under the second left metatarsal head due to hammertoe and bunion deformity Hypertension (Chronic) Hypertriglyceridemia (Chronic) Hypoalphalipoproteinemia (Chronic) Hypocalcemia (Chronic) Hypothyroidism (Chronic) Inflammatory arthritis (Suspected) Inflammatory arthropathy (Suspected) Morbid obesity (Chronic) Onychomycosis (Chronic) Paresthesia and pain of both upper extremities (Acute) Polyneuropathy (Chronic) Type II diabetes mellitus (Chronic) Surgical History History of back surgery (Acute) History of surgery (Acute) right foot No pertinent past surgical history (Acute) S/P carpal tunnel release (Acute) left hand Family History Other Cancer Diabetes Hypertension No pertinent family history Social History smoking status: Former smoker alcohol intake frequency: does not drink substance use type: does not use MEDS/ALLERGIES Home Medications and Allergies Home Medications Medication Instructions Recorded Confirmed Type empagliflozin 25 mg tablet 25 mg PO QHS 05/28/16 01/07/20 History levothyroxine 175 mcg tablet 175 mcg PO QDAY 05/28/16 01/07/20 History pregabalin 200 mg capsule 400 mg PO BID cap 05/28/16 01/07/20 History fenofibrate 54 mg PO QHS 11/14/19 01/07/20 History losartan 25 mg PO QAM #1 tab 11/19/19 01/07/20 Rx glipizide 10 mg tablet 5 mg PO BID tab 12/11/19 01/07/20 History hydrochlorothiazide 25 mg tablet 12.5 mg PO QDAY PRN tab 12/11/19 01/07/20 History insulin NPH isoph U-100 human 100 1 unit SUB-Q DAILY 12/11/19 01/07/20 History unit/mL (3 mL) subcutaneous pen metformin 500 mg tablet,extended 1,000 mg PO QDAY tab 12/11/19 01/07/20 History release 24 hr Atorvastatin [Lipitor] 10 mg PO HS 12/16/19 01/07/20 History oxycodone 5 mg PO Q8HP PRN 12/16/19 01/07/20 History hydrocodone-acetaminophen 1 - 2 tab PO Q6H PRN 12/25/19 01/07/20 History meloxicam 15 mg PO QAM 12/25/19 01/07/20 History Allergies Allergy/AdvReac Type Severity Reaction Status Date / Time cefazolin AdvReac Intermediate Rash Verified 01/07/20 21:10 Physical Examination Ankle & Foot bilateral: Ankle appearance: swelling and erythema Effusion grade: grade 2 Foot appearance: swelling and erythema Foot swelling: dorsal, plantar, medial, lateral, heel and toes Tenderness with palpation: none Ankle pain worse with weight bearing: No Ankle pain relieved by non-weight bearing: No Foot pain worse with weight bearing: No Foot pain relieved by non-weight bearing: No A/P Narrative A/P Narrative: Narrative: Long standing history of Charcot, now with cellulitus and edema. Has a dorsal MTPJ wound which was treated by the wound care team chronically. History of plantar ulceration and hardware. Required advanced treatment with incision and drainage / possible removal of hardware. Appear at high risk for amputation. Discussed case with . Recommended transfer as I will be out of town for remainder of week. Time Spent With Patient Time: Total time spent is greater than 50% in coordination of care (as documented) at patient's floor/unit and/or counseling patient:
== END 2020-01-08 19:32 | disposition short-term general hospital (02) | DRG 871 ==
LOC: ED 21:05 → ICU 01-08 01:06
PROVIDERS: ADMIT Internal Medicine; ATTEND Internal Medicine